=== PATIENT | female | born 1960 | race Caucasian/White ===

== ENCOUNTER 2018-07-29 16:44 | Emergency (ER) | payer SELFPAY ==
[~2018-07-29] VITALS: Ht 157.5 cm; Wt 65.8 kg
[~2018-07-29 16:44] MED LIST: AMLO10TA8 PO; ASPI-630 PO; CLON0.2T PO; FOLI1TAB16 PO; LOSA-73 PO; METO50TA6 PO; THIA100T22 PO
[2018-07-29] MEDS ORDERED: LABETALOL 20 MG/4 ML DISP.SYRIN. IVP ONE (17:30)
[2018-07-29] MEDS ORDERED: MECLIZINE HCL 12.5 MG TABLET. PO ONE (17:30)
[2018-07-29] MEDS ORDERED: IV NORMAL SALINE 1000ML BAG 1,000 ML IV ONE (17:30)
--- NOTE | 2018-07-29 17:33 | PHYS DOC ---
Past Medical History Past Medical History: Diabetes-Type II, Hypertension Additional Past Medical Histor: Hyponatremia, hypoglycemia Past Surgical History: Tonsillectomy Alcohol Use: None Drug Use: None Adult General Chief Complaint Chief Complaint: DIZZY/LIGHT HEADED HPI HPI Patient is a 58 year old female with history of diabetes type 2, hypertension, who presents to the ED today complaining of dizziness for "months". Patient states the dizziness is worse when she gets up from sitting position very quickly. Patient denies any nausea or vomiting. Denies a sensation of the room spinning or herself spinning. Denies any chest pain or shortness of breath. She states she is a smoker and is not willing to quit smoking because she does not like how this smoking cessation medications make her feel. She states she ran out of her blood pressure medications 3 days ago unfortunately she states she does not remember the names of the medications neither does she remember the names of her doctors but believes it could be Dr. Castillo. Review of Systems Review of Systems Constitutional: Denies fever or chills [] Eyes: Denies change in visual acuity, redness, or eye pain [] HENT: Denies nasal congestion or sore throat [] Respiratory: Denies cough or shortness of breath [] Cardiovascular: No additional information not addressed in HPI [] GI: Denies abdominal pain, nausea, vomiting, bloody stools or diarrhea [] : Denies dysuria or hematuria [] Musculoskeletal: Denies back pain or joint pain [] Integument: Denies rash or skin lesions [] Neurologic: Reports dizziness. Denies headache, focal weakness or sensory changes [] All other systems were reviewed and found to be within normal limits, except as documented in this note. Current Medications Current Medications Current Medications Medications (Trade) Dose Ordered Sig/Jil Start Time Stop Time Status Last Admin Dose Admin Clonidine HCl (Catapres) 0.2 mg 1X ONCE 07/29/18 18:00 07/29/18 18:01 Labetalol HCl (Normodyne Iv Push) 10 mg 1X ONCE 07/29/18 17:30 07/29/18 17:31 DC Meclizine HCl (Antivert) 25 mg 1X ONCE 07/29/18 17:30 07/29/18 17:31 DC Sodium Chloride 1,000 ml @ 1,000 mls/hr 1X ONCE 07/29/18 17:30 07/29/18 18:29 Allergies Allergies Allergies Coded Allergies Type Severity Reaction Last Updated Verified No Known Drug Allergies 08/15/13 No Physical Exam Physical Exam Constitutional: Well developed, well nourished, no acute distress, non-toxic appearance. [] HENT: Normocephalic, atraumatic, bilateral external ears normal, oropharynx moist, no oral exudates, nose normal. [] Eyes: PERRLA, EOMI, conjunctiva normal, no discharge. [] Neck: Normal range of motion, no tenderness, supple, no stridor. [] Cardiovascular:Heart rate regular rhythm, no murmur [] Lungs & Thorax: Bilateral breath sounds clear to auscultation [] Abdomen: Bowel sounds normal, soft, no tenderness, no masses, no pulsatile masses. [] Skin: Warm, dry, no erythema, no rash. [] Back: No tenderness, no CVA tenderness. [] Extremities: No tenderness, no cyanosis, no clubbing, ROM intact, no edema. [] Neurologic: Alert and oriented X 3, normal motor function, normal sensory function, no focal deficits noted. Psychologic: Affect normal, judgement normal, mood normal. Cranial nerves II through XII intact Current Patient Data Vital Signs Vital Signs Date Time Temp Pulse Resp B/P (MAP) Pulse Ox O2 Delivery O2 Flow Rate FiO2 07/29/18 17:00 98.3 108 18 192/120 (144) 100 Room Air 98.3 EKG EKG 17:[address] Johnson sinus rhythm HR 79 no STEMI[] Radiology/Procedures Radiology/Procedures [] Course & Med Decision Making Course & Med Decision Making Pertinent Labs and Imaging studies reviewed. (See chart for details) This is a 58-year-old female patient with history of diabetes, hypertension, smoking presenting today with dizziness for months. Blood pressure on arrival to the ED 192/120, she states she has been out of her medications 3 days. Patient declined smoking cessation. 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 She is requesting blood pressure medications. Previous documentation shows patient was on metoprolol clonidine losartan and amlodipine. She confirmed she is on the mentioned medications RX given and she left the Ed. A is alert and oriented 4, able to make her own decisions. She'll sign out AMA for refusal of care. I did give him RX for 14 day supply of BP medicines and f/ u with PCP as soon as possible Shahram Disclaimer Shahram Disclaimer This electronic medical record was generated, in whole or in part, using a voice recognition dictation system. Departure Departure Impression: Primary Impression: Dizziness Additional Impression: HTN (hypertension) Disposition: 07 AGAINST MEDICAL ADVICE Condition: STABLE Referrals: NO PCP (PCP) Patient Instructions: Dizziness, [id number], Hypertension Additional Instructions: You were evaluated in the medicine for chronic dizziness, your blood pressure was high, ensure you taking her medications and follow up with her own doctor as soon as possible. Please consider smoking cessation. Scripts Amlodipine Besylate (AMLODIPINE BESYLATE) 10 Mg Tablet 10 MG PO DAILY, #14 TAB Prov: STEPHEN SANCHES APRN 07/29/18 Losartan Potassium (LOSARTAN POTASSIUM) 50 Mg Tablet 50 MG PO DAILY, #14 TAB Prov: STEPHEN SANCHES APRN 07/29/18 Clonidine Hcl (CLONIDINE HCL) 0.2 Mg Tablet 1 TAB PO BID, #28 TAB 0 Refills Prov: STEPHEN SANCHES APRN 07/29/18 Metoprolol Tartrate (METOPROLOL TARTRATE) 50 Mg Tablet 1 TAB PO BID, #28 TAB 0 Refills Prov: STEPHEN SANCHES APRN 07/29/18 Problem Qualifiers Additional Impression: HTN (hypertension) Hypertension type: unspecified Qualified Codes: I10 - Essential (primary) hypertension STEPHEN SANCHES APRN Jul 29, 2018 17:33
[2018-07-29 17:45] VITALS: BP 187/124
[2018-07-29] MEDS ORDERED: CLON0.2T PO (17:53)
[2018-07-29] MEDS ORDERED: METO50TA6 PO (17:53)
[2018-07-29] MEDS ORDERED: LOSA-73 PO (17:53)
[2018-07-29] MEDS ORDERED: AMLO10TA8 PO (17:53)
[2018-07-29] MEDS ORDERED: cloNIDine HCL 0.1 MG TABLET PO ONE (18:00)
== END 2018-07-29 17:53 | disposition left against medical advice (07) ==
LOC: ER 16:44
DX: I10 Essential (primary) hypertension (principal); R42 Dizziness and giddiness; E11.649 Type 2 diabetes mellitus with hypoglycemia without coma; F17.200 Nicotine dependence, unspecified, uncomplicated
CPT/HCPCS: 96374; 99284; J3490; J8597

== ENCOUNTER 2018-07-30 09:28 | Inpatient (IN) | payer SELFPAY ==
[~2018-07-30] VITALS: Ht 157.5 cm; Wt 65.8 kg
[2018-07-30] MEDS ORDERED: MECLIZINE HCL 12.5 MG TABLET. PO ONE (09:45)
[2018-07-30] MEDS ORDERED: IV NORMAL SALINE 1000ML BAG 1,000 ML IV ONE ×2 (09:45→12:00)
--- NOTE | 2018-07-30 09:50 | PHYS DOC ---
Past Medical History Past Medical History: Diabetes-Type II, Hypertension Additional Past Medical Histor: Hyponatremia, hypoglycemia Past Surgical History: Tonsillectomy Alcohol Use: None Drug Use: None Adult General Chief Complaint Chief Complaint: DIZZY/LIGHT HEADED HPI HPI Patient is a 58 year old female with history of diabetes type 2, hypertension, who presents to the ED today complaining of dizziness for "months". Patient states the dizziness is worse when she gets up from sitting position very quickly. Patient denies any nausea or vomiting. Denies a sensation of the room spinning or herself spinning. Denies any chest pain or shortness of breath. She states she is a smoker and is not willing to quit smoking because she does not like how the smoking cessation medications make her feel. Patient was in the ED yesterday and left AMA before we did any work up. She states her symptoms have continued and hence the reason she returns. She states she has been out of her BP medications for a while and did not fill her BP medicines yesterday. Review of Systems Review of Systems Constitutional: Denies fever or chills [] Eyes: Denies change in visual acuity, redness, or eye pain [] HENT: Denies nasal congestion or sore throat [] Respiratory: Denies cough or shortness of breath [] Cardiovascular: No additional information not addressed in HPI [] GI: Denies abdominal pain, nausea, vomiting, bloody stools or diarrhea [] : Denies dysuria or hematuria [] Musculoskeletal: Denies back pain or joint pain [] Integument: Denies rash or skin lesions [] Neurologic: Reports dizziness. Denies headache, focal weakness or sensory changes [] All other systems were reviewed and found to be within normal limits, except as documented in this note. Current Medications Current Medications Current Medications Medications (Trade) Dose Ordered Sig/Jil Start Time Stop Time Status Last Admin Dose Admin Clonidine HCl (Catapres) 0.1 mg 1X ONCE 07/30/18 10:00 07/30/18 10:01 DC 07/30/18 10:20 0.1 MG Labetalol HCl (Normodyne Iv Push) 10 mg 1X ONCE 07/30/18 10:00 07/30/18 10:01 DC Meclizine HCl (Antivert) 25 mg 1X ONCE 07/30/18 09:45 07/30/18 09:50 DC 07/30/18 10:21 25 MG Sodium Chloride 1,000 ml @ 1,000 mls/hr 1X ONCE 07/30/18 09:45 07/30/18 10:44 DC 07/30/18 10:19 1,000 MLS/HR Allergies Allergies Allergies Coded Allergies Type Severity Reaction Last Updated Verified No Known Drug Allergies 08/15/13 No Physical Exam Physical Exam Constitutional: Well developed, well nourished, no acute distress, non-toxic appearance. [] HENT: Normocephalic, atraumatic, bilateral external ears normal, oropharynx moist, no oral exudates, nose normal. [] Eyes: PERRLA, EOMI, conjunctiva normal, no discharge. [] Neck: Normal range of motion, no tenderness, supple, no stridor. [] Cardiovascular:Heart rate regular rhythm, no murmur [] Lungs & Thorax: Bilateral breath sounds clear to auscultation [] Abdomen: Bowel sounds normal, soft, no tenderness, no masses, no pulsatile masses. [] Skin: Warm, dry, no erythema, no rash. [] Back: No tenderness, no CVA tenderness. [] Extremities: No tenderness, no cyanosis, no clubbing, ROM intact, no edema. [] Neurologic: Alert and oriented X 3, normal motor function, normal sensory function, no focal deficits noted. Cranial nerves II-XII intact Psychologic: flat affect, shakiness Current Patient Data Vital Signs Vital Signs Date Time Temp Pulse Resp B/P (MAP) Pulse Ox O2 Delivery O2 Flow Rate FiO2 07/30/18 11:30 68 98 07/30/18 10:20 153/90 07/30/18 09:51 97.7 18 Room Air 97.7 Lab Values Laboratory Tests Test 07/30/18 09:41 07/30/18 10:00 07/30/18 10:10 Urine Collection Type Unknown Urine Color Yellow Urine Clarity Clear Urine pH 6.0 Urine Specific [place] 1.010 Urine Protein Negative mg/dL (NEG-TRACE) Urine Glucose (UA) Negative mg/dL (NEG) Urine Ketones (Stick) Negative mg/dL (NEG) Urine Blood Negative (NEG) Urine Nitrite Negative (NEG) Urine Bilirubin Negative (NEG) Urine Urobilinogen Dipstick 1.0 mg/dL (0.2 mg/dL) Urine Leukocyte Esterase Negative (NEG) Urine RBC 0 /HPF (0-2) Urine WBC 0 /HPF (0-4) Urine Squamous Epithelial Cells Many /LPF Urine Bacteria 0 /HPF (0-FEW) Urine Opiates Screen Neg (NEG) Urine Methadone Screen Neg (NEG) Urine Barbiturates Neg (NEG) Urine Phencyclidine Screen Neg (NEG) Urine Amphetamine/Methamphetamine Neg (NEG) Urine Benzodiazepines Screen Neg (NEG) Urine Cocaine Screen Neg (NEG) Urine Cannabinoids Screen Neg (NEG) Urine Ethyl Alcohol Neg (NEG) White Blood Count 10.0 x10^3/uL (4.0-11.0) Red Blood Count 5.62 x10^6/uL (3.50-5.40) H Hemoglobin 18.1 g/dL (12.0-15.5) H Hematocrit 53.2 % (36.0-47.0) H Mean Corpuscular Volume 95 fL (79-100) Mean Corpuscular Hemoglobin 32 pg (25-35) Mean Corpuscular Hemoglobin Concent 34 g/dL (31-37) Red Cell Distribution Width 14.3 % (11.5-14.5) Platelet Count 430 x10^3/uL (140-400) H Neutrophils (%) (Auto) 74 % (31-73) H Lymphocytes (%) (Auto) 18 % (24-48) L Monocytes (%) (Auto) 6 % (0-9) Eosinophils (%) (Auto) 1 % (0-3) Basophils (%) (Auto) 1 % (0-3) Neutrophils # (Auto) 7.4 x10^3uL (1.8-7.7) Lymphocytes # (Auto) 1.8 x10^3/uL (1.0-4.8) Monocytes # (Auto) 0.6 x10^3/uL (0.0-1.1) Eosinophils # (Auto) 0.1 x10^3/uL (0.0-0.7) Basophils # (Auto) 0.1 x10^3/uL (0.0-0.2) Prothrombin Time 12.7 SEC (11.7-14.0) Prothrombin Time INR 1.0 (0.8-1.1) Sodium Level 138 mmol/L (136-145) Potassium Level 3.8 mmol/L (3.5-5.1) Chloride Level 97 mmol/L (98-107) L Carbon Dioxide Level 28 mmol/L (21-32) Anion Gap 13 (6-14) Blood Urea Nitrogen 8 mg/dL (7-20) Creatinine 0.8 mg/dL (0.6-1.0) Estimated GFR (Cockcroft-Gault) 73.2 BUN/Creatinine Ratio 10 (6-20) Glucose Level 126 mg/dL (70-99) H Calcium Level 10.5 mg/dL (8.5-10.1) H Magnesium Level 1.7 mg/dL (1.8-2.4) L Total Bilirubin 0.6 mg/dL (0.2-1.0) Aspartate Amino Transferase (AST) 17 U/L (15-37) Alanine Aminotransferase (ALT) 17 U/L (14-59) Alkaline Phosphatase 101 U/L (46-116) Creatine Kinase 40 U/L (26-192) Creatine Kinase MB (Mass) 0.9 ng/mL (0.0-3.6) Creatine Kinase MB Relative Index % (0-4) SG-Dao-M-Type Natriuretic Peptide 78 pg/mL (0-124) Total Protein 7.9 g/dL (6.4-8.2) Albumin 4.0 g/dL (3.4-5.0) Albumin/Globulin Ratio 1.0 (1.0-1.7) Lipase 94 U/L (73-393) Thyroid Stimulating Hormone (TSH) 3.422 uIU/mL (0.358-3.74) Ethyl Alcohol Level < 10 mg/dL (0-10) Troponin I Quantitative < 0.017 ng/mL (0.000-0.055) Laboratory Tests 07/30/18 10:00 Laboratory Tests 07/30/18 10:00 EKG EKG 10:[address] Zamudio sinus rhythm HR 80 no STEMI[] Radiology/Procedures Radiology/Procedures []PROCEDURE: PORTABLE CHEST 1V Exam performed: One view chest. Indication: VERTIGO Date of Service: 07/30/2018 9:35 AM Comparison: One view chest from 10/10/2017. Single AP upright portable view chest findings: Cardiomediastinal silhouette is within limits of normal. No acute infiltrates, effusion or pneumothorax is detected. Calcified nodules in the right lung base, related to remote ligamentous infection. The bony structures are normal. Impression: No acute cardiopulmonary process is detected. Electronically signed by: Yaneth Willis MD (07/30/2018 10:04 AM) [id number] DICTATED and SIGNED BY: YANETH WILLIS MD DATE: 07/30/18 1004 PROCEDURE: CT HEAD WO CONTRAST CT HEAD WO CONTRAST History: Dizziness Comparison: October 10, 2017; August 07, 2013 Technique: Noncontrast CT imaging was performed of the head. Exposure: One or more of the following individualized dose reduction techniques were utilized for this examination: 1. Automated exposure control 2. Adjustment of the mA and/or kV according to patient size 3. Use of iterative reconstruction technique. Findings: No acute intracranial hemorrhage is identified. There is a similar degree of third and lateral ventriculomegaly compared with older 2014 exam, generalized supratentorial atrophy present. There is again multifocal moderate to severe ill-defined low-density of the supratentorial parenchyma bilaterally. There is no new intra-axial mass effect or midline shift. There is atherosclerotic calcification of the carotid siphons bilaterally. Visualized paranasal sinuses and the mastoid air cells are aerated. Impression: 1. There is no evidence of acute intracranial hemorrhage. There is again ventriculomegaly probably related to atrophy, stable compared with 2014 exam. There is multifocal low-density of the supratentorial parenchyma bilaterally. Nonspecific findings may be due to chronic microvascular ischemic disease unless there is a known history of or clinical suspicion for inflammatory demyelinating disease. Electronically signed by: Agata Mixon MD (07/30/2018 10:24 AM) [id number] DICTATED and SIGNED BY: AGATA MIXON MD DATE: 07/30/18 1024 Course & Med Decision Making Course & Med Decision Making Pertinent Labs and Imaging studies reviewed. (See chart for details) Patient is a 58 year old female who presents to the ED today complaining of dizziness for "months". Patient also has history of hypertension. Does not take her medications. She was in the ED yesterday, we tried to work her up and she decided to sign out AMA. Orthostatics supine blood pressure 175/96 with a heart rate of 76, sitting blood pressure 153/90 with a heart rate of 84, standing blood pressure 123/80 with a heart rate of [address] of the head is negative for intracranial bleeding. Noted for non specific multifocal low-density of the supratentorial parenchyma bilaterally, may be due to chronic microvascular ischemic disease unless there is a known history of or clinical suspicion for inflammatory demyelinating disease Routine consult placed for neurology. Blood pressures were high on arrival to the ED 197/110 with heart rates in the 80s. Clonidine was ordered. Patient was given IV fluids, meclizine. She is up and ambulating with no difficulties. Labs are negative, EKG was negative. Urine analysis is negative. Consulted with Dr. Fleming who accepted patient for admission. Dragon Disclaimer Dragon Disclaimer This electronic medical record was generated, in whole or in part, using a voice recognition dictation system. Departure Departure Impression: Primary Impression: Dizziness Additional Impressions: HTN (hypertension) Smoking addiction Disposition: ADMITTED INPATIENT Condition: STABLE Referrals: NO PCP (PCP) NIHSS Stroke Scale NIH Stroke Scale: NIH Stroke Scale Response (Comments) Value Level of Consciousness: 0 Alert/Responsive 0 LOC Questions: 0 Answers both correctly 0 LOC Commands: 0 Performs both tasks 0 Best Gaze: 0 Normal 0 Visual: 0 No visual loss 0 Facial Palsy: 0 Normal, symmetrical 0 Motor - Left Arm 0 No drift 0 Motor - Right Arm 0 No drift 0 Motor - Left Leg 0 No drift 0 Motor: Right Leg 0 No drift 0 Limb Ataxia: 0 Absent 0 Sensory: 0 No loss 0 Best Language: 0 Normal 0 Dysathria: 0 Normal 0 Extinction and Inattention: 0 Normal 0 Total 0 Problem Qualifiers Additional Impressions: HTN (hypertension) Hypertension type: unspecified Qualified Codes: I10 - Essential (primary) hypertension STEPHEN SANCHES APRN Jul 30, 2018 09:50
[2018-07-30] MEDS ORDERED: LABETALOL 20 MG/4 ML DISP.SYRIN. IVP ONE (10:00)
[2018-07-30] MEDS ORDERED: cloNIDine HCL 0.1 MG TABLET PO ONE (10:00)
--- NOTE | 2018-07-30 10:07 | RAD ---
Exam performed: One view chest. Indication: VERTIGO Date of Service: 07/30/2018 9:35 AM Comparison: One view chest from 10/10/2017. Single AP upright portable view chest findings: Cardiomediastinal silhouette is within limits of normal. No acute infiltrates, effusion or pneumothorax is detected. Calcified nodules in the right lung base, related to remote ligamentous infection. The bony structures are normal. Impression: No acute cardiopulmonary process is detected. Electronically signed by: Yaneth Willis MD (07/30/2018 10:04 AM) [place] [id number]
[2018-07-30 10:15] LABS: BASO # 0.1 x10^3/uL (0.0-0.2); BASO % 1 % (0-3); EOS # 0.1 x10^3/uL (0.0-0.7); EOS % 1 % (0-3); HEMATOCRIT 53.2 % (36.0-47.0); HEMOGLOBIN 18.1 g/dL (12.0-15.5); LYMPH # 1.8 x10^3/uL (1.0-4.8); LYMPH % 18 % (24-48); MEAN CORPUSCULAR HEMOGLOBIN 32 pg (25-35); MEAN CORPUSCULAR HGB CONC 34 g/dL (31-37); MEAN CORPUSCULAR VOLUME 95 fL (79-100); MONO # 0.6 x10^3/uL (0.0-1.1); MONO % 6 % (0-9); NEUT # 7.4 x10^3uL (1.8-7.7); NEUT % 74 % (31-73); PLATELET COUNT 430 x10^3/uL (140-400); RED BLOOD COUNT 5.62 x10^6/uL (3.50-5.40); RED CELL DISTRIBUTION WIDTH 14.3 % (11.5-14.5)
[2018-07-30 10:19] LABS: AMPHETAMINE/METHAMPHETAMINE NEG (NEG); BARBITURATES NEG (NEG); BENZODIAZEPINES NEG (NEG); CANNABINOIDS NEG (NEG); COCAINE NEG (NEG); METHADONE NEG (NEG); OPIATES NEG (NEG); PHENCYCLIDINE NEG (NEG)
[2018-07-30 10:26] LABS: BILIRUBIN,URINE NEGATIVE (NEG); CLARITY,URINE CLEAR; COLOR,URINE YELLOW; NITRITE,URINE NEGATIVE (NEG); PROTEIN,URINE NEGATIVE (NEG-TRACE)
--- NOTE | 2018-07-30 10:27 | RAD ---
CT HEAD WO CONTRAST History: Dizziness Comparison: October 10, 2017; August 07, 2013 Technique: Noncontrast CT imaging was performed of the head. Exposure: One or more of the following individualized dose reduction techniques were utilized for this examination: 1. Automated exposure control 2. Adjustment of the mA and/or kV according to patient size 3. Use of iterative reconstruction technique. Findings: No acute intracranial hemorrhage is identified. There is a similar degree of third and lateral ventriculomegaly compared with older 2014 exam, generalized supratentorial atrophy present. There is again multifocal moderate to severe ill-defined low-density of the supratentorial parenchyma bilaterally. There is no new intra-axial mass effect or midline shift. There is atherosclerotic calcification of the carotid siphons bilaterally. Visualized paranasal sinuses and the mastoid air cells are aerated. Impression: 1. There is no evidence of acute intracranial hemorrhage. There is again ventriculomegaly probably related to atrophy, stable compared with 2014 exam. There is multifocal low-density of the supratentorial parenchyma bilaterally. Nonspecific findings may be due to chronic microvascular ischemic disease unless there is a known history of or clinical suspicion for inflammatory demyelinating disease. Electronically signed by: Kwame Dominguez MD (07/30/2018 10:24 AM) [id number]
[2018-07-30 10:29] LABS: CALCIUM 10.5 mg/dL (8.5-10.1); CREATININE 0.8 mg/dL (0.6-1.0); GFR 73.2; POTASSIUM 3.8 mmol/L (3.5-5.1)
[2018-07-30 10:34] LABS: BACTERIA,URINE 0 /HPF (0-FEW); RBC,URINE 0 /HPF (0-2); SQUAMOUS EPITHELIAL CELL,UR MANY /LPF; WBC,URINE 0 /HPF (0-4)
[2018-07-30 10:35] LABS: MAGNESIUM 1.7 mg/dL (1.8-2.4); TOTAL BILIRUBIN 0.6 mg/dL (0.2-1.0); TOTAL PROTEIN 7.9 g/dL (6.4-8.2)
[2018-07-30 10:37] LABS: PROTHROMBIN TIME PATIENT 12.7 SEC (11.7-14.0)
[2018-07-30 10:39] LABS: CREATINE KINASE 40 U/L (26-192)
--- NOTE | 2018-07-30 10:58 | EKG ---
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
[2018-07-30] MEDS ORDERED: ONDANSETRON PF 4 MG/2 ML VIAL. IV PRN (12:00)
[2018-07-30] MEDS ORDERED: ACETAMINOPHEN 325 MG TABLET. PO PRN (12:00)
[2018-07-30] MEDS ORDERED: MECLIZINE HCL 12.5 MG TABLET. PO PRN (12:00)
[2018-07-30 13:15] VITALS: BP 188/107
--- NOTE | 2018-07-30 13:51 | HP ---
ADMIT DATE: 07/30/2018 CHIEF COMPLAINT: Vertigo. HISTORY OF PRESENT ILLNESS: The patient is a pleasant 58-year-old female who presented with vertigo. She actually was seen in the ER yesterday and had left against medical advice. Today, she is dizzy again. She rates it at 9/10. She has associated nausea. It has been occurring off and on for a couple of weeks, worse with moving, better with sitting still. She does smoke heavily. I discussed the case with ER physician. We are going to admit the patient and consult Neurology. PAST MEDICAL HISTORY: Diabetes, hypertension, hyperlipidemia, hyponatremia, hypoglycemia, tonsillectomy. ALLERGIES: None. FAMILY HISTORY: Coronary artery disease. SOCIAL HISTORY: She smokes heavily. She drinks socially. No drugs. MEDICATIONS: Reviewed. She is on clonidine, metoprolol, amlodipine, losartan, aspirin. REVIEW OF SYSTEMS: GENERAL: No history of weight change, weakness or fevers. SKIN: No bruising, hair changes or rashes. EYES: No blurred, double or loss of vision. NOSE AND THROAT: No history of nosebleeds, hoarseness or sore throat. HEART: No history of palpitations, chest pain or shortness of breath on exertion. LUNGS: Denies cough, hemoptysis, wheezing or shortness of breath. GASTROINTESTINAL: Denies changes in appetite, nausea, vomiting, diarrhea or constipation. GENITOURINARY: No history of frequency, urgency, hesitancy or nocturia. NEUROLOGIC: She complains of dizziness. PSYCHIATRIC: No history of panic, anxiety or depression. ENDOCRINE: No history of heat or cold intolerance, polyuria or polydipsia. EXTREMITIES: Denies muscle weakness, joint pain, pain on walking or stiffness. PHYSICAL EXAMINATION: VITAL SIGNS: Temperature 97, pulse 70, respirations 18, blood pressure 197/110, it went down to 153/90. GENERAL: She is alert, cooperative. HEART: Normal S1, S2. LUNGS: Clear. ABDOMEN: Soft. EXTREMITIES: No edema. SKIN: No rashes. PSYCHIATRIC: She is a little anxious. VASCULAR: Good capillary refill. ENDOCRINE: No thyromegaly. LYMPHATICS: No cervical nodes. HEMATOPOIETIC: No bruising. NEUROLOGICAL: She is a little unsteady on her feet, does not have any nystagmus. LABORATORY DATA: Hemoglobin 18, platelets 430. Electrolytes are normal other than a calcium of 10.5 and a magnesium of 1.7. Drug screen is negative. Urinalysis negative. INR is 1. CT of the head shows atrophy with chronic microvascular disease. ASSESSMENT AND PLAN: Vertigo, erythrocytosis, thrombocytosis, hypercalcemia and hypermagnesemia of 1.7. The patient has been admitted. We will consult Neurology, IV fluids. I told her to quit smoking. Home meds. Deep venous thrombosis prophylaxis, physical therapy and occupational therapy. Full code and p.r.n Antivert. JEAN-LCAUDE NOBLES DO DR: JONATHAN/charlie JOB#: [id number] / [id number]
[2018-07-30 15:00] VITALS: BP 172/94
--- NOTE | 2018-07-30 17:01 | RAD ---
MRI Brain without contrast History: Unsteady gait, dizziness Technique: Multiplanar, multisequential noncontrast MR imaging was performed of the brain. Comparison: None Findings: There is no evidence of recent infarct or cytotoxic edema. Ventricular size is proportionate to the sulcal spaces, moderate supratentorial atrophy greater than expected for the patient's age. There is multifocal moderate to severe T2 and FLAIR hyperintense signal abnormality of the supratentorial parenchyma bilaterally. There is small old lacunar infarct left basal ganglia. There is no significant midline shift, intraaxial mass effect, or focal abnormal extra-axial fluid collection. There is no significant hemosiderin deposition of the brain parenchyma. There is preservation of the major intracranial flow-voids at the skull base. The mastoid air cells are aerated. The cerebellar tonsils are normal in location. There is no significant abnormality of the pineal gland or pituitary gland. Paranasal sinuses are overall aerated. There is preserved marrow signal of the clivus. Impression: 1. There is no evidence of recent infarct or intracranial mass effect. There is generalized supratentorial atrophy greater than expected for the patient's age. There is multifocal moderate to severe T2 and FLAIR hyperintense abnormality of the supratentorial parenchyma bilaterally. Findings could be due to chronic microvascular ischemic disease if risk factors such as hypertension or diabetes. Sequela of an inflammatory demyelinating disease is not excluded given degree of changes in a patient this age and given atrophy. Electronically signed by: Kwame Dominguez MD (07/30/2018 4:58 PM) [id number]
[2018-07-30] MEDS: NICOTINE POLACRILEX 2MG GUM PACKAGE of 12. BC PRN ×2 (17:48→19:59)
[2018-07-30 19:00] VITALS: BP 141/97
[2018-07-30] MEDS: METOPROLOL TART IMMED RELEASE 50 MG TABLET. PO SCH (21:20)
[2018-07-30] MEDS: cloNIDine HCL 0.2 MG TABLET PO SCH (21:21)
[2018-07-30 23:00] VITALS: BP_SYST 108; BP_SYST 86; BP_SYST 90; BP_DIAS 56; BP_DIAS 61; BP_DIAS 65
[2018-07-31] MEDS: NICOTINE POLACRILEX 2MG GUM PACKAGE of 12. BC PRN ×2 (02:52→08:22)
[2018-07-31 03:00] VITALS: BP 155/72
[2018-07-31 04:33] LABS: BASO # 0.1 x10^3/uL (0.0-0.2); BASO % 1 % (0-3); EOS # 0.2 x10^3/uL (0.0-0.7); EOS % 2 % (0-3); HEMATOCRIT 40.1 % (36.0-47.0); HEMOGLOBIN 13.3 g/dL (12.0-15.5); LYMPH # 2.2 x10^3/uL (1.0-4.8); LYMPH % 32 % (24-48); MEAN CORPUSCULAR HEMOGLOBIN 32 pg (25-35); MEAN CORPUSCULAR HGB CONC 33 g/dL (31-37); MEAN CORPUSCULAR VOLUME 96 fL (79-100); MONO # 0.6 x10^3/uL (0.0-1.1); MONO % 9 % (0-9); NEUT # 3.9 x10^3uL (1.8-7.7); NEUT % 56 % (31-73); PLATELET COUNT 308 x10^3/uL (140-400); RED BLOOD COUNT 4.19 x10^6/uL (3.50-5.40); RED CELL DISTRIBUTION WIDTH 13.9 % (11.5-14.5)
[2018-07-31 04:36] LABS: CALCIUM 9.4 mg/dL (8.5-10.1); CREATININE 0.6 mg/dL (0.6-1.0); POTASSIUM 3.6 mmol/L (3.5-5.1)
[2018-07-31 07:00] VITALS: BP_SYST 152; BP_SYST 159; BP_SYST 98; BP_DIAS 83; BP_DIAS 84; BP_DIAS 85
--- NOTE | 2018-07-31 07:33 | PDOC2 ---
CONSULT Date of Consult Date of Consult DATE: 07/31/18 TIME: 07:27 Reason for Consult Reason for Consult: polycythemia Referring Physician Referring Physician: Bernadette Identification/Chief Complaint Chief Complaint dizziness Source Source: Chart review, Patient History of Present Illness Reason for Visit: Asked to see for polycythemia. Presented to ED on 07/30 with c/o dizziness and hemoglobin noted to be 18.3. She left AMA, but returned later with same c/o and admitted. MRI brain showed atrophy and microvascular change, but nothing acute, CXR not acute. Does have heavy tob use. Had IVF and hemoglobin and remainder of CBC normal today. She says her dizziness is better. Reports she has not been sleeping well for 9 weeks. Not aware of any prior heme issues. Reviewed old labs and no prior polycythemia. Has been anemic at time in past. Past Medical History Cardiovascular: HTN Pulmonary: COPD CENTRAL NERVOUS SYSTEM: CVA GI: No pertinent hx Heme/Onc: No pertinent hx Hepatobiliary: No pertinent hx Psych: Anxiety Musculoskeletal: Other Rheumatologic: No pertinent hx Infectious disease: No pertinent hx Renal/: No pertinent hx Endocrine: No pertinent hx Past Surgical History Past Surgical History: Tonsillectomy Family History Family History She tells me she is adopted and not sure of FH Family History: Adopted Social History 1 pack per day ALCOHOL: other Drugs: None Lives: with Family Domestic Violence: Neg Current Problem List Problem List Problems Medical Problems: (1) Dizziness Status: Acute (2) HTN (hypertension) Status: Acute (3) Smoking addiction Status: Acute Current Medications Current Medications Current Medications Sodium Chloride 1,000 ml @ 1,000 mls/hr 1X ONCE IV Last administered on at 10:19; Start 07/30/18 at 09:45; Stop 07/30/18 at 10:44; Status DC Meclizine HCl (Antivert) 25 mg 1X ONCE PO Last administered on 07/30/18at 10:21 ; Start 07/30/18 at 09:45; Stop 07/30/18 at 09:50; Status DC Labetalol HCl (Normodyne Iv Push) 10 mg 1X ONCE IVP ; Start 07/30/18 at 10:00; Stop 07/30/18 at 10:01; Status DC Clonidine HCl (Catapres) 0.1 mg 1X ONCE PO Last administered on 07/30/18at 10: 20; Start 07/30/18 at 10:00; Stop 07/30/18 at 10:01; Status DC Ondansetron HCl (Zofran) 4 mg PRN Q8HRS PRN IV NAUSEA/VOMITING; Start 07/30/18 at 12:00; Stop 07/31/18 at 11:59 Acetaminophen (Tylenol) 650 mg PRN Q4HRS PRN PO FEVER; Start 07/30/18 at 12:00 ; Stop 07/31/18 at 11:59 Sodium Chloride 1,000 ml @ 75 mls/hr 1X ONCE IV Last administered on at 15:46; Start 07/30/18 at 12:00; Stop 07/31/18 at 01:19; Status DC Meclizine HCl (Antivert) 25 mg TID PRN PRN PO DIZZINESS; Start 07/30/18 at 12: 00 Nicotine Polacrilex (Nicorette Gum) 1 each PRN Q1HR PRN BC SMOKING CESSATION Last administered on 07/31/18at 02:52; Start 07/30/18 at 15:45 Amlodipine Besylate (Norvasc) 10 mg DAILY PO ; Start 07/31/18 at 09:00 Aspirin (Children'S Aspirin) 81 mg DAILY PO ; Start 07/31/18 at 09:00 Clonidine HCl (Catapres) 0.2 mg BID PO Last administered on 07/30/18at 21:21; Start 07/30/18 at 21:00 Losartan Potassium (Cozaar) 50 mg DAILY PO ; Start 07/31/18 at 09:00 Metoprolol Tartrate (Lopressor) 50 mg BID PO Last administered on 07/30/18at 21: 20; Start 07/30/18 at 21:00 Active Scripts Active Amlodipine Besylate 10 Mg Tablet 10 Mg PO DAILY Losartan Potassium 50 Mg Tablet 50 Mg PO DAILY Clonidine Hcl 0.2 Mg Tablet 1 Tab PO BID Metoprolol Tartrate 50 Mg Tablet 1 Tab PO BID Reported Amlodipine Besylate 10 Mg Tablet 10 Mg PO DAILY Aspirin 81 Mg Tab.chew 81 Mg PO DAILY Losartan Potassium 50 Mg Tablet 50 Mg PO DAILY Clonidine Hcl 0.2 Mg Tablet 0.2 Mg PO BID Metoprolol Tartrate 50 Mg Tablet 50 Mg PO BID Allergies Allergies: Coded Allergies: No Known Drug Allergies (Unverified , 08/15/13) ROS General: YES: Other (sleep difficulty) Physical Exam General: Alert, Cooperative, No acute distress HEENT: Atraumatic, PERRLA, Mucous membr. moist/pink Lungs: Clear to auscultation Heart: Regular rate, No murmurs Abdomen: Normal bowel sounds, Soft, No hepatosplenomegaly Extremities: No edema, No tenderness/swelling Neuro: Normal speech, Normal tone Psych/Mental Status: Mental status NL MUSCULOSKELETAL: No swelling Vitals VITALS Vital Signs Date Time Temp Pulse Resp B/P (MAP) Pulse Ox O2 Delivery O2 Flow Rate FiO2 07/31/18 03:00 97.9 57 18 155/72 (99) 95 97.9 07/30/18 15:00 Room Air Labs Labs Laboratory Tests Test 07/30/18 09:41 07/30/18 10:00 07/30/18 10:10 07/31/18 03:35 Urine Collection Type Unknown Urine Color Yellow Urine Clarity Clear Urine pH 6.0 Urine Specific [place] 1.010 Urine Protein Negative mg/dL (NEG-TRACE) Urine Glucose (UA) Negative mg/dL (NEG) Urine Ketones (Stick) Negative mg/dL (NEG) Urine Blood Negative (NEG) Urine Nitrite Negative (NEG) Urine Bilirubin Negative (NEG) Urine Urobilinogen Dipstick 1.0 mg/dL (0.2 mg/dL) Urine Leukocyte Esterase Negative (NEG) Urine RBC 0 /HPF (0-2) Urine WBC 0 /HPF (0-4) Urine Squamous Epithelial Cells Many /LPF Urine Bacteria 0 /HPF (0-FEW) Urine Opiates Screen Neg (NEG) Urine Methadone Screen Neg (NEG) Urine Barbiturates Neg (NEG) Urine Phencyclidine Screen Neg (NEG) Urine Amphetamine/Methamphetamine Neg (NEG) Urine Benzodiazepines Screen Neg (NEG) Urine Cocaine Screen Neg (NEG) Urine Cannabinoids Screen Neg (NEG) Urine Ethyl Alcohol Neg (NEG) White Blood Count 10.0 x10^3/uL (4.0-11.0) 7.0 x10^3/uL (4.0-11.0) Red Blood Count 5.62 x10^6/uL (3.50-5.40) 4.19 x10^6/uL (3.50-5.40) Hemoglobin 18.1 g/dL (12.0-15.5) 13.3 g/dL (12.0-15.5) Hematocrit 53.2 % (36.0-47.0) 40.1 % (36.0-47.0) Mean Corpuscular Volume 95 fL (79-100) 96 fL (79-100) Mean Corpuscular Hemoglobin 32 pg (25-35) 32 pg (25-35) Mean Corpuscular Hemoglobin Concent 34 g/dL (31-37) 33 g/dL (31-37) Red Cell Distribution Width 14.3 % (11.5-14.5) 13.9 % (11.5-14.5) Platelet Count 430 x10^3/uL (140-400) 308 x10^3/uL (140-400) Neutrophils (%) (Auto) 74 % (31-73) 56 % (31-73) Lymphocytes (%) (Auto) 18 % (24-48) 32 % (24-48) Monocytes (%) (Auto) 6 % (0-9) 9 % (0-9) Eosinophils (%) (Auto) 1 % (0-3) 2 % (0-3) Basophils (%) (Auto) 1 % (0-3) 1 % (0-3) Neutrophils # (Auto) 7.4 x10^3uL (1.8-7.7) 3.9 x10^3uL (1.8-7.7) Lymphocytes # (Auto) 1.8 x10^3/uL (1.0-4.8) 2.2 x10^3/uL (1.0-4.8) Monocytes # (Auto) 0.6 x10^3/uL (0.0-1.1) 0.6 x10^3/uL (0.0-1.1) Eosinophils # (Auto) 0.1 x10^3/uL (0.0-0.7) 0.2 x10^3/uL (0.0-0.7) Basophils # (Auto) 0.1 x10^3/uL (0.0-0.2) 0.1 x10^3/uL (0.0-0.2) Prothrombin Time 12.7 SEC (11.7-14.0) Prothromb Time International Ratio 1.0 (0.8-1.1) Sodium Level 138 mmol/L (136-145) 138 mmol/L (136-145) Potassium Level 3.8 mmol/L (3.5-5.1) 3.6 mmol/L (3.5-5.1) Chloride Level 97 mmol/L (98-107) 105 mmol/L (98-107) Carbon Dioxide Level 28 mmol/L (21-32) 26 mmol/L (21-32) Anion Gap 13 (6-14) 7 (6-14) Blood Urea Nitrogen 8 mg/dL (7-20) 9 mg/dL (7-20) Creatinine 0.8 mg/dL (0.6-1.0) 0.6 mg/dL (0.6-1.0) Estimated GFR (Cockcroft-Gault) 73.2 102.0 BUN/Creatinine Ratio 10 (6-20) Glucose Level 126 mg/dL (70-99) 90 mg/dL (70-99) Calcium Level 10.5 mg/dL (8.5-10.1) 9.4 mg/dL (8.5-10.1) Magnesium Level 1.7 mg/dL (1.8-2.4) Total Bilirubin 0.6 mg/dL (0.2-1.0) Aspartate Amino Transf (AST/SGOT) 17 U/L (15-37) Alanine Aminotransferase (ALT/SGPT) 17 U/L (14-59) Alkaline Phosphatase 101 U/L (46-116) Creatine Kinase 40 U/L (26-192) Creatine Kinase MB (Mass) 0.9 ng/mL (0.0-3.6) Creatine Kinase MB Relative Index % (0-4) VB-[id number]-[id number]-Type Natriuretic Peptide 78 pg/mL (0-124) Total Protein 7.9 g/dL (6.4-8.2) Albumin 4.0 g/dL (3.4-5.0) Albumin/Globulin Ratio 1.0 (1.0-1.7) Lipase 94 U/L (73-393) Thyroid Stimulating Hormone (TSH) 3.422 uIU/mL (0.358-3.74) Ethyl Alcohol Level < 10 mg/dL (0-10) Troponin I Quantitative < 0.017 ng/mL (0.000-0.055) Laboratory Tests Test 4/19/19 09:41 07/30/18 10:00 07/30/18 10:10 07/31/18 03:35 Urine Collection Type Unknown Urine Color Yellow Urine Clarity Clear Urine pH 6.0 Urine Specific [place] 1.010 Urine Protein Negative mg/dL (NEG-TRACE) Urine Glucose (UA) Negative mg/dL (NEG) Urine Ketones (Stick) Negative mg/dL (NEG) Urine Blood Negative (NEG) Urine Nitrite Negative (NEG) Urine Bilirubin Negative (NEG) Urine Urobilinogen Dipstick 1.0 mg/dL (0.2 mg/dL) Urine Leukocyte Esterase Negative (NEG) Urine RBC 0 /HPF (0-2) Urine WBC 0 /HPF (0-4) Urine Squamous Epithelial Cells Many /LPF Urine Bacteria 0 /HPF (0-FEW) Urine Opiates Screen Neg (NEG) Urine Methadone Screen Neg (NEG) Urine Barbiturates Neg (NEG) Urine Phencyclidine Screen Neg (NEG) Urine Amphetamine/Methamphetamine Neg (NEG) Urine Benzodiazepines Screen Neg (NEG) Urine Cocaine Screen Neg (NEG) Urine Cannabinoids Screen Neg (NEG) Urine Ethyl Alcohol Neg (NEG) White Blood Count 10.0 x10^3/uL (4.0-11.0) 7.0 x10^3/uL (4.0-11.0) Red Blood Count 5.62 x10^6/uL (3.50-5.40) 4.19 x10^6/uL (3.50-5.40) Hemoglobin 18.1 g/dL (12.0-15.5) 13.3 g/dL (12.0-15.5) Hematocrit 53.2 % (36.0-47.0) 40.1 % (36.0-47.0) Mean Corpuscular Volume 95 fL (79-100) 96 fL (79-100) Mean Corpuscular Hemoglobin 32 pg (25-35) 32 pg (25-35) Mean Corpuscular Hemoglobin Concent 34 g/dL (31-37) 33 g/dL (31-37) Red Cell Distribution Width 14.3 % (11.5-14.5) 13.9 % (11.5-14.5) Platelet Count 430 x10^3/uL (140-400) 308 x10^3/uL (140-400) Neutrophils (%) (Auto) 74 % (31-73) 56 % (31-73) Lymphocytes (%) (Auto) 18 % (24-48) 32 % (24-48) Monocytes (%) (Auto) 6 % (0-9) 9 % (0-9) Eosinophils (%) (Auto) 1 % (0-3) 2 % (0-3) Basophils (%) (Auto) 1 % (0-3) 1 % (0-3) Neutrophils # (Auto) 7.4 x10^3uL (1.8-7.7) 3.9 x10^3uL (1.8-7.7) Lymphocytes # (Auto) 1.8 x10^3/uL (1.0-4.8) 2.2 x10^3/uL (1.0-4.8) Monocytes # (Auto) 0.6 x10^3/uL (0.0-1.1) 0.6 x10^3/uL (0.0-1.1) Eosinophils # (Auto) 0.1 x10^3/uL (0.0-0.7) 0.2 x10^3/uL (0.0-0.7) Basophils # (Auto) 0.1 x10^3/uL (0.0-0.2) 0.1 x10^3/uL (0.0-0.2) Prothrombin Time 12.7 SEC (11.7-14.0) Prothromb Time International Ratio 1.0 (0.8-1.1) Sodium Level 138 mmol/L (136-145) 138 mmol/L (136-145) Potassium Level 3.8 mmol/L (3.5-5.1) 3.6 mmol/L (3.5-5.1) Chloride Level 97 mmol/L (98-107) 105 mmol/L (98-107) Carbon Dioxide Level 28 mmol/L (21-32) 26 mmol/L (21-32) Anion Gap 13 (6-14) 7 (6-14) Blood Urea Nitrogen 8 mg/dL (7-20) 9 mg/dL (7-20) Creatinine 0.8 mg/dL (0.6-1.0) 0.6 mg/dL (0.6-1.0) Estimated GFR (Cockcroft-Gault) 73.2 102.0 BUN/Creatinine Ratio 10 (6-20) Glucose Level 126 mg/dL (70-99) 90 mg/dL (70-99) Calcium Level 10.5 mg/dL (8.5-10.1) 9.4 mg/dL (8.5-10.1) Magnesium Level 1.7 mg/dL (1.8-2.4) Total Bilirubin 0.6 mg/dL (0.2-1.0) Aspartate Amino Transf (AST/SGOT) 17 U/L (15-37) Alanine Aminotransferase (ALT/SGPT) 17 U/L (14-59) Alkaline Phosphatase 101 U/L (46-116) Creatine Kinase 40 U/L (26-192) Creatine Kinase MB (Mass) 0.9 ng/mL (0.0-3.6) Creatine Kinase MB Relative Index % (0-4) ZO-[id number]-Type Natriuretic Peptide 78 pg/mL (0-124) Total Protein 7.9 g/dL (6.4-8.2) Albumin 4.0 g/dL (3.4-5.0) Albumin/Globulin Ratio 1.0 (1.0-1.7) Lipase 94 U/L (73-393) Thyroid Stimulating Hormone (TSH) 3.422 uIU/mL (0.358-3.74) Ethyl Alcohol Level < 10 mg/dL (0-10) Troponin I Quantitative < 0.017 ng/mL (0.000-0.055) Assessment/Plan Assessment/Plan I suspect her polycythemia was due to volume contraction. Likely explained some of the other electrolyte abnormalities. No other sign of heme d/o such as splenomegaly and do not recommend any further evaluation. I did advise tobacco cessation as others have. defer dizziness and sleep issues to primary service. Will sign off DEBBIE MARIE MD Jul 31, 2018 07:33
[2018-07-31] MEDS: METOPROLOL TART IMMED RELEASE 50 MG TABLET. PO SCH (08:13)
[2018-07-31] MEDS: cloNIDine HCL 0.2 MG TABLET PO SCH (09:00)
[2018-07-31] MEDS ORDERED: amLODIPine BESYLATE 10 MG TABLET PO SCH (09:00)
[2018-07-31] MEDS ORDERED: ASPIRIN CHEWABLE 81 MG TABLET. PO SCH (09:00)
[2018-07-31] MEDS ORDERED: LOSARTAN POTASSIUM 50 MG TABLET. PO SCH (09:00)
[2018-07-31 11:00] VITALS: BP 135/78
[2018-07-31 11:21] VITALS: BP 135/78
--- NOTE | 2018-07-31 11:52 | PDOC ---
PROGRESS NOTES Chief Complaint Chief Complaint Vertigo, nausea, confusion History of Present Illness History of Present Illness The patient was seen resting in bed today. She has no complaints. She is feeling much better today. She complains of lack of sleep. We discussed melatonin use and smoking cessation. Vitals Vitals Vital Signs Date Time Temp Pulse Resp B/P (MAP) Pulse Ox O2 Delivery O2 Flow Rate FiO2 07/31/18 11:21 56 135/78 07/31/18 11:00 98.3 12 99 Room Air 98.3 Physical Exam General: Alert, Oriented X3, Cooperative, No acute distress Heart: Regular rate, Normal S1, Normal S2, No murmurs Lungs: Clear (No wheezes, rales, or rhonci) Abdomen: Soft, No tenderness, No masses Extremities: No edema, Normal pulses, No tenderness/swelling Skin: No rashes, No breakdown, No significant lesion Labs LABS Laboratory Tests Test 07/31/18 03:35 White Blood Count 7.0 x10^3/uL (4.0-11.0) Red Blood Count 4.19 x10^6/uL (3.50-5.40) Hemoglobin 13.3 g/dL (12.0-15.5) Hematocrit 40.1 % (36.0-47.0) Mean Corpuscular Volume 96 fL (79-100) Mean Corpuscular Hemoglobin 32 pg (25-35) Mean Corpuscular Hemoglobin Concent 33 g/dL (31-37) Red Cell Distribution Width 13.9 % (11.5-14.5) Platelet Count 308 x10^3/uL (140-400) Neutrophils (%) (Auto) 56 % (31-73) Lymphocytes (%) (Auto) 32 % (24-48) Monocytes (%) (Auto) 9 % (0-9) Eosinophils (%) (Auto) 2 % (0-3) Basophils (%) (Auto) 1 % (0-3) Neutrophils # (Auto) 3.9 x10^3uL (1.8-7.7) Lymphocytes # (Auto) 2.2 x10^3/uL (1.0-4.8) Monocytes # (Auto) 0.6 x10^3/uL (0.0-1.1) Eosinophils # (Auto) 0.2 x10^3/uL (0.0-0.7) Basophils # (Auto) 0.1 x10^3/uL (0.0-0.2) Sodium Level 138 mmol/L (136-145) Potassium Level 3.6 mmol/L (3.5-5.1) Chloride Level 105 mmol/L (98-107) Carbon Dioxide Level 26 mmol/L (21-32) Anion Gap 7 (6-14) Blood Urea Nitrogen 9 mg/dL (7-20) Creatinine 0.6 mg/dL (0.6-1.0) Estimated GFR (Cockcroft-Gault) 102.0 Glucose Level 90 mg/dL (70-99) Calcium Level 9.4 mg/dL (8.5-10.1) Review of Systems Review of Systems Patient denies fevers, chills, N/V, CP, SOB, and diarrhea. She complains of lack of sleep. Assessment and Plan Assessmemt and Plan Problems Medical Problems: (1) Dizziness Status: Acute (2) HTN (hypertension) Status: Acute (3) Smoking addiction Status: Acute Assessment: Vertigo Erythrocytosis Thrombocytosis Hypercalcemia Hypermagnesemia of 1.7 T2DM HTN HLD Plan: Erythrocytosis and thrombocytosis resolved Discussed use of melatonin to help her sleep Discussed smoking cessation Heme onc consult Neurology consult Continue home meds F/u labs PT/OT DVT prophylaxis Discharge today Comment Review of Relevant I have reviewed the following items sierra (where applicable) has been applied. Labs Laboratory Tests Test 07/30/18 09:41 07/30/18 10:00 07/30/18 10:10 07/31/18 03:35 Urine Collection Type Unknown Urine Color Yellow Urine Clarity Clear Urine pH 6.0 Urine Specific [place] 1.010 Urine Protein Negative mg/dL (NEG-TRACE) Urine Glucose (UA) Negative mg/dL (NEG) Urine Ketones (Stick) Negative mg/dL (NEG) Urine Blood Negative (NEG) Urine Nitrite Negative (NEG) Urine Bilirubin Negative (NEG) Urine Urobilinogen Dipstick 1.0 mg/dL (0.2 mg/dL) Urine Leukocyte Esterase Negative (NEG) Urine RBC 0 /HPF (0-2) Urine WBC 0 /HPF (0-4) Urine Squamous Epithelial Cells Many /LPF Urine Bacteria 0 /HPF (0-FEW) Urine Opiates Screen Neg (NEG) Urine Methadone Screen Neg (NEG) Urine Barbiturates Neg (NEG) Urine Phencyclidine Screen Neg (NEG) Urine Amphetamine/Methamphetamine Neg (NEG) Urine Benzodiazepines Screen Neg (NEG) Urine Cocaine Screen Neg (NEG) Urine Cannabinoids Screen Neg (NEG) Urine Ethyl Alcohol Neg (NEG) White Blood Count 10.0 x10^3/uL (4.0-11.0) 7.0 x10^3/uL (4.0-11.0) Red Blood Count 5.62 x10^6/uL (3.50-5.40) 4.19 x10^6/uL (3.50-5.40) Hemoglobin 18.1 g/dL (12.0-15.5) 13.3 g/dL (12.0-15.5) Hematocrit 53.2 % (36.0-47.0) 40.1 % (36.0-47.0) Mean Corpuscular Volume 95 fL (79-100) 96 fL (79-100) Mean Corpuscular Hemoglobin 32 pg (25-35) 32 pg (25-35) Mean Corpuscular Hemoglobin Concent 34 g/dL (31-37) 33 g/dL (31-37) Red Cell Distribution Width 14.3 % (11.5-14.5) 13.9 % (11.5-14.5) Platelet Count 430 x10^3/uL (140-400) 308 x10^3/uL (140-400) Neutrophils (%) (Auto) 74 % (31-73) 56 % (31-73) Lymphocytes (%) (Auto) 18 % (24-48) 32 % (24-48) Monocytes (%) (Auto) 6 % (0-9) 9 % (0-9) Eosinophils (%) (Auto) 1 % (0-3) 2 % (0-3) Basophils (%) (Auto) 1 % (0-3) 1 % (0-3) Neutrophils # (Auto) 7.4 x10^3uL (1.8-7.7) 3.9 x10^3uL (1.8-7.7) Lymphocytes # (Auto) 1.8 x10^3/uL (1.0-4.8) 2.2 x10^3/uL (1.0-4.8) Monocytes # (Auto) 0.6 x10^3/uL (0.0-1.1) 0.6 x10^3/uL (0.0-1.1) Eosinophils # (Auto) 0.1 x10^3/uL (0.0-0.7) 0.2 x10^3/uL (0.0-0.7) Basophils # (Auto) 0.1 x10^3/uL (0.0-0.2) 0.1 x10^3/uL (0.0-0.2) Prothrombin Time 12.7 SEC (11.7-14.0) Prothromb Time International Ratio 1.0 (0.8-1.1) Sodium Level 138 mmol/L (136-145) 138 mmol/L (136-145) Potassium Level 3.8 mmol/L (3.5-5.1) 3.6 mmol/L (3.5-5.1) Chloride Level 97 mmol/L (98-107) 105 mmol/L (98-107) Carbon Dioxide Level 28 mmol/L (21-32) 26 mmol/L (21-32) Anion Gap 13 (6-14) 7 (6-14) Blood Urea Nitrogen 8 mg/dL (7-20) 9 mg/dL (7-20) Creatinine 0.8 mg/dL (0.6-1.0) 0.6 mg/dL (0.6-1.0) Estimated GFR (Cockcroft-Gault) 73.2 102.0 BUN/Creatinine Ratio 10 (6-20) Glucose Level 126 mg/dL (70-99) 90 mg/dL (70-99) Calcium Level 10.5 mg/dL (8.5-10.1) 9.4 mg/dL (8.5-10.1) Magnesium Level 1.7 mg/dL (1.8-2.4) Total Bilirubin 0.6 mg/dL (0.2-1.0) Aspartate Amino Transf (AST/SGOT) 17 U/L (15-37) Alanine Aminotransferase (ALT/SGPT) 17 U/L (14-59) Alkaline Phosphatase 101 U/L (46-116) Creatine Kinase 40 U/L (26-192) Creatine Kinase MB (Mass) 0.9 ng/mL (0.0-3.6) Creatine Kinase MB Relative Index % (0-4) BO-Gsb-R-Type Natriuretic Peptide 78 pg/mL (0-124) Total Protein 7.9 g/dL (6.4-8.2) Albumin 4.0 g/dL (3.4-5.0) Albumin/Globulin Ratio 1.0 (1.0-1.7) Lipase 94 U/L (73-393) Thyroid Stimulating Hormone (TSH) 3.422 uIU/mL (0.358-3.74) Ethyl Alcohol Level < 10 mg/dL (0-10) Troponin I Quantitative < 0.017 ng/mL (0.000-0.055) Laboratory Tests Test 07/31/18 03:35 White Blood Count 7.0 x10^3/uL (4.0-11.0) Red Blood Count 4.19 x10^6/uL (3.50-5.40) Hemoglobin 13.3 g/dL (12.0-15.5) Hematocrit 40.1 % (36.0-47.0) Mean Corpuscular Volume 96 fL (79-100) Mean Corpuscular Hemoglobin 32 pg (25-35) Mean Corpuscular Hemoglobin Concent 33 g/dL (31-37) Red Cell Distribution Width 13.9 % (11.5-14.5) Platelet Count 308 x10^3/uL (140-400) Neutrophils (%) (Auto) 56 % (31-73) Lymphocytes (%) (Auto) 32 % (24-48) Monocytes (%) (Auto) 9 % (0-9) Eosinophils (%) (Auto) 2 % (0-3) Basophils (%) (Auto) 1 % (0-3) Neutrophils # (Auto) 3.9 x10^3uL (1.8-7.7) Lymphocytes # (Auto) 2.2 x10^3/uL (1.0-4.8) Monocytes # (Auto) 0.6 x10^3/uL (0.0-1.1) Eosinophils # (Auto) 0.2 x10^3/uL (0.0-0.7) Basophils # (Auto) 0.1 x10^3/uL (0.0-0.2) Sodium Level 138 mmol/L (136-145) Potassium Level 3.6 mmol/L (3.5-5.1) Chloride Level 105 mmol/L (98-107) Carbon Dioxide Level 26 mmol/L (21-32) Anion Gap 7 (6-14) Blood Urea Nitrogen 9 mg/dL (7-20) Creatinine 0.6 mg/dL (0.6-1.0) Estimated GFR (Cockcroft-Gault) 102.0 Glucose Level 90 mg/dL (70-99) Calcium Level 9.4 mg/dL (8.5-10.1) Medications Current Medications Sodium Chloride 1,000 ml @ 1,000 mls/hr 1X ONCE IV Last administered on at 10:19; Start 07/30/18 at 09:45; Stop 07/30/18 at 10:44; Status DC Meclizine HCl (Antivert) 25 mg 1X ONCE PO Last administered on 07/30/18at 10:21 ; Start 07/30/18 at 09:45; Stop 07/30/18 at 09:50; Status DC Labetalol HCl (Normodyne Iv Push) 10 mg 1X ONCE IVP ; Start 07/30/18 at 10:00; Stop 07/30/18 at 10:01; Status DC Clonidine HCl (Catapres) 0.1 mg 1X ONCE PO Last administered on 07/30/18at 10: 20; Start 07/30/18 at 10:00; Stop 07/30/18 at 10:01; Status DC Ondansetron HCl (Zofran) 4 mg PRN Q8HRS PRN IV NAUSEA/VOMITING; Start 07/30/18 at 12:00; Stop 07/31/18 at 11:59 Acetaminophen (Tylenol) 650 mg PRN Q4HRS PRN PO FEVER; Start 07/30/18 at 12:00 ; Stop 07/31/18 at 11:59 Sodium Chloride 1,000 ml @ 75 mls/hr 1X ONCE IV Last administered on at 15:46; Start 07/30/18 at 12:00; Stop 07/31/18 at 01:19; Status DC Meclizine HCl (Antivert) 25 mg TID PRN PRN PO DIZZINESS; Start 07/30/18 at 12: 00 Nicotine Polacrilex (Nicorette Gum) 1 each PRN Q1HR PRN BC SMOKING CESSATION Last administered on 07/31/18 08:22; Start 07/30/18 at 15:45 Amlodipine Besylate (Norvasc) 10 mg DAILY PO Last administered on 07/31/18 11: 21; Start 07/31/18 at 09:00 Aspirin (Children'S Aspirin) 81 mg DAILY PO Last administered on 07/31/18 08: 13; Start 07/31/18 at 09:00 Clonidine HCl (Catapres) 0.2 mg BID PO Last administered on 07/30/18 21:21; Start 07/30/18 at 21:00 Losartan Potassium (Cozaar) 50 mg DAILY PO Last administered on 07/31/18 08:13 ; Start 07/31/18 at 09:00 Metoprolol Tartrate (Lopressor) 50 mg BID PO Last administered on 07/31/18 08: 13; Start 07/30/18 at 21:00 Active Scripts Active Amlodipine Besylate 10 Mg Tablet 10 Mg PO DAILY Losartan Potassium 50 Mg Tablet 50 Mg PO DAILY Clonidine Hcl 0.2 Mg Tablet 1 Tab PO BID Metoprolol Tartrate 50 Mg Tablet 1 Tab PO BID Reported Amlodipine Besylate 10 Mg Tablet 10 Mg PO DAILY Aspirin 81 Mg Tab.chew 81 Mg PO DAILY Losartan Potassium 50 Mg Tablet 50 Mg PO DAILY Clonidine Hcl 0.2 Mg Tablet 0.2 Mg PO BID Metoprolol Tartrate 50 Mg Tablet 50 Mg PO BID Vitals/I & O Vital Sign - Last 24 Hours 07/30/18 07/30/18 07/30/18 07/30/18 12:31 13:15 15:00 19:00 Temp 98.7 97.8 98.4 98.7 97.8 98.4 Pulse 76 73 81 79 Resp 18 16 16 18 B/P (MAP) 188/107 (134) 172/94 (120) 141/97 (112) Pulse Ox 94 96 96 95 O2 Delivery Room Air Room Air 07/30/18 07/30/18 07/30/18 07/30/18 21:20 21:21 23:00 23:00 Temp 98.2 98.2 Pulse 79 79 58 56 Resp 18 B/P (MAP) 141/97 141/97 90/61 (71) 108/65 (79) Pulse Ox 95 07/30/18 07/31/18 07/31/18 07/31/18 23:00 03:00 07:00 07:00 Temp 97.9 97.5 97.9 97.5 Pulse 61 57 84 62 Resp 18 12 B/P (MAP) 86/56 (66) 155/72 (99) 152/84 (106) 98/83 (88) Pulse Ox 95 96 O2 Delivery Room Air 07/31/18 07/31/18 07/31/18 07/31/18 07:00 08:00 08:13 08:13 Pulse 62 62 62 B/P (MAP) 159/85 (109) 159/85 159/85 O2 Delivery Room Air 07/31/18 07/31/18 11:00 11:21 Temp 98.3 98.3 Pulse 56 56 Resp 12 B/P (MAP) 135/78 (97) 135/78 Pulse Ox 99 O2 Delivery Room Air Intake and Output 07/30/18 07/30/18 07/31/18 14:59 22:59 06:59 Intake Total 1000 ml Balance 1000 ml JEAN-CLAUDE NOBLES III DO Jul 31, 2018 11:52
--- NOTE | 2018-07-31 12:22 | PDOC3 ---
Discharge Summary Visit Information Date of Admission: Jul 30, 2018 Date of Discharge: Jul 31, 2018 Admitting Diagnosis: Vertigo Final Diagnosis Problems Medical Problems: (1) Dizziness Status: Acute (2) HTN (hypertension) Status: Acute (3) Smoking addiction Status: Acute Brief Hospital Course Allergies Allergies Coded Allergies Type Severity Reaction Last Updated Verified No Known Drug Allergies 08/15/13 No Vital Signs Vital Signs Date Time Temp Pulse Resp B/P (MAP) Pulse Ox O2 Delivery O2 Flow Rate FiO2 07/31/18 11:21 56 135/78 07/31/18 11:00 98.3 12 99 Room Air 98.3 Lab Results Laboratory Tests Test 07/30/18 09:41 07/30/18 10:00 07/30/18 10:10 07/31/18 03:35 Urine Collection Type Unknown Urine Color Yellow Urine Clarity Clear Urine pH 6.0 Urine Specific [place] 1.010 Urine Protein Negative mg/dL (NEG-TRACE) Urine Glucose (UA) Negative mg/dL (NEG) Urine Ketones (Stick) Negative mg/dL (NEG) Urine Blood Negative (NEG) Urine Nitrite Negative (NEG) Urine Bilirubin Negative (NEG) Urine Urobilinogen Dipstick 1.0 mg/dL (0.2 mg/dL) Urine Leukocyte Esterase Negative (NEG) Urine RBC 0 /HPF (0-2) Urine WBC 0 /HPF (0-4) Urine Squamous Epithelial Cells Many /LPF Urine Bacteria 0 /HPF (0-FEW) Urine Opiates Screen Neg (NEG) Urine Methadone Screen Neg (NEG) Urine Barbiturates Neg (NEG) Urine Phencyclidine Screen Neg (NEG) Urine Amphetamine/Methamphetamine Neg (NEG) Urine Benzodiazepines Screen Neg (NEG) Urine Cocaine Screen Neg (NEG) Urine Cannabinoids Screen Neg (NEG) Urine Ethyl Alcohol Neg (NEG) White Blood Count 10.0 x10^3/uL (4.0-11.0) 7.0 x10^3/uL (4.0-11.0) Red Blood Count 5.62 x10^6/uL (3.50-5.40) 4.19 x10^6/uL (3.50-5.40) Hemoglobin 18.1 g/dL (12.0-15.5) 13.3 g/dL (12.0-15.5) Hematocrit 53.2 % (36.0-47.0) 40.1 % (36.0-47.0) Mean Corpuscular Volume 95 fL (79-100) 96 fL (79-100) Mean Corpuscular Hemoglobin 32 pg (25-35) 32 pg (25-35) Mean Corpuscular Hemoglobin Concent 34 g/dL (31-37) 33 g/dL (31-37) Red Cell Distribution Width 14.3 % (11.5-14.5) 13.9 % (11.5-14.5) Platelet Count 430 x10^3/uL (140-400) 308 x10^3/uL (140-400) Neutrophils (%) (Auto) 74 % (31-73) 56 % (31-73) Lymphocytes (%) (Auto) 18 % (24-48) 32 % (24-48) Monocytes (%) (Auto) 6 % (0-9) 9 % (0-9) Eosinophils (%) (Auto) 1 % (0-3) 2 % (0-3) Basophils (%) (Auto) 1 % (0-3) 1 % (0-3) Neutrophils # (Auto) 7.4 x10^3uL (1.8-7.7) 3.9 x10^3uL (1.8-7.7) Lymphocytes # (Auto) 1.8 x10^3/uL (1.0-4.8) 2.2 x10^3/uL (1.0-4.8) Monocytes # (Auto) 0.6 x10^3/uL (0.0-1.1) 0.6 x10^3/uL (0.0-1.1) Eosinophils # (Auto) 0.1 x10^3/uL (0.0-0.7) 0.2 x10^3/uL (0.0-0.7) Basophils # (Auto) 0.1 x10^3/uL (0.0-0.2) 0.1 x10^3/uL (0.0-0.2) Prothrombin Time 12.7 SEC (11.7-14.0) Prothromb Time International Ratio 1.0 (0.8-1.1) Sodium Level 138 mmol/L (136-145) 138 mmol/L (136-145) Potassium Level 3.8 mmol/L (3.5-5.1) 3.6 mmol/L (3.5-5.1) Chloride Level 97 mmol/L (98-107) 105 mmol/L (98-107) Carbon Dioxide Level 28 mmol/L (21-32) 26 mmol/L (21-32) Anion Gap 13 (6-14) 7 (6-14) Blood Urea Nitrogen 8 mg/dL (7-20) 9 mg/dL (7-20) Creatinine 0.8 mg/dL (0.6-1.0) 0.6 mg/dL (0.6-1.0) Estimated GFR (Cockcroft-Gault) 73.2 102.0 BUN/Creatinine Ratio 10 (6-20) Glucose Level 126 mg/dL (70-99) 90 mg/dL (70-99) Calcium Level 10.5 mg/dL (8.5-10.1) 9.4 mg/dL (8.5-10.1) Magnesium Level 1.7 mg/dL (1.8-2.4) Total Bilirubin 0.6 mg/dL (0.2-1.0) Aspartate Amino Transf (AST/SGOT) 17 U/L (15-37) Alanine Aminotransferase (ALT/SGPT) 17 U/L (14-59) Alkaline Phosphatase 101 U/L (46-116) Creatine Kinase 40 U/L (26-192) Creatine Kinase MB (Mass) 0.9 ng/mL (0.0-3.6) Creatine Kinase MB Relative Index % (0-4) MY-Cjw-R-Type Natriuretic Peptide 78 pg/mL (0-124) Total Protein 7.9 g/dL (6.4-8.2) Albumin 4.0 g/dL (3.4-5.0) Albumin/Globulin Ratio 1.0 (1.0-1.7) Lipase 94 U/L (73-393) Thyroid Stimulating Hormone (TSH) 3.422 uIU/mL (0.358-3.74) Ethyl Alcohol Level < 10 mg/dL (0-10) Troponin I Quantitative < 0.017 ng/mL (0.000-0.055) Laboratory Tests Test 07/31/18 03:35 White Blood Count 7.0 x10^3/uL (4.0-11.0) Red Blood Count 4.19 x10^6/uL (3.50-5.40) Hemoglobin 13.3 g/dL (12.0-15.5) Hematocrit 40.1 % (36.0-47.0) Mean Corpuscular Volume 96 fL (79-100) Mean Corpuscular Hemoglobin 32 pg (25-35) Mean Corpuscular Hemoglobin Concent 33 g/dL (31-37) Red Cell Distribution Width 13.9 % (11.5-14.5) Platelet Count 308 x10^3/uL (140-400) Neutrophils (%) (Auto) 56 % (31-73) Lymphocytes (%) (Auto) 32 % (24-48) Monocytes (%) (Auto) 9 % (0-9) Eosinophils (%) (Auto) 2 % (0-3) Basophils (%) (Auto) 1 % (0-3) Neutrophils # (Auto) 3.9 x10^3uL (1.8-7.7) Lymphocytes # (Auto) 2.2 x10^3/uL (1.0-4.8) Monocytes # (Auto) 0.6 x10^3/uL (0.0-1.1) Eosinophils # (Auto) 0.2 x10^3/uL (0.0-0.7) Basophils # (Auto) 0.1 x10^3/uL (0.0-0.2) Sodium Level 138 mmol/L (136-145) Potassium Level 3.6 mmol/L (3.5-5.1) Chloride Level 105 mmol/L (98-107) Carbon Dioxide Level 26 mmol/L (21-32) Anion Gap 7 (6-14) Blood Urea Nitrogen 9 mg/dL (7-20) Creatinine 0.6 mg/dL (0.6-1.0) Estimated GFR (Cockcroft-Gault) 102.0 Glucose Level 90 mg/dL (70-99) Calcium Level 9.4 mg/dL (8.5-10.1) Brief Hospital Course Ms. Posada is a 58 old [sex] who presented with Vertigo She is also a heavy smoker so hasn't erythrocytosis and thrombocytosis We admitted the patient and gave her Antivert and consultation neurology This morning I saw and examined her and her vertigo had resolved We did consult hematology and they felt her erythrocytosis was secondary to volume contraction and tobacco abuse sign point her heart tones were normal her lungs were clear abdomen was soft and extremities were noted without edema sign we plan to discharge with close outpatient follow-up Disposition is home Activity as tolerated Diet regular Medications please see below ( total time 34 minutes) ] Discharge Information Scheduled Amlodipine Besylate (Amlodipine Besylate) 10 Mg Tablet, 10 MG PO DAILY, ( Reported) Entered as Reported by: HEMANTH STEELE on 10/17/17323 Last Action: Continued on 07/30/181541 by NITIN GUTIERREZ RN Amlodipine Besylate (Amlodipine Besylate) 10 Mg Tablet, 10 MG PO DAILY, #14 Prescribed by: Matilde Wayne APRN on 07/29/181752 Aspirin (Aspirin) 81 Mg Tab.chew, 81 MG PO DAILY, (Reported) Entered as Reported by: HEMANTH STEELE on 10/17/17323 Last Action: Continued on 07/30/181541 by NITIN GUTIERREZ RN Clonidine Hcl (Clonidine Hcl) 0.2 Mg Tablet, 0.2 MG PO BID, (Reported) Entered as Reported by: HEMANTH STEELE on 10/17/17323 Last Action: Continued on 07/30/181541 by NITIN GUTIERREZ RN Clonidine Hcl (Clonidine Hcl) 0.2 Mg Tablet, 1 TAB PO BID, #28 Ref 0 Prescribed by: Matilde Wayne APRN on 07/29/181752 Losartan Potassium (Losartan Potassium) 50 Mg Tablet, 50 MG PO DAILY, (Reported) Entered as Reported by: HEMANTH STEELE on 10/17/17323 Last Action: Continued on 07/30/181541 by NITIN GUTIERREZ RN Losartan Potassium (Losartan Potassium) 50 Mg Tablet, 50 MG PO DAILY, #14 Prescribed by: Matilde Wayne APRN on 07/29/181752 Metoprolol Tartrate (Metoprolol Tartrate) 50 Mg Tablet, 50 MG PO BID for FOR HYPERTENSION, #60 Ref 0 (Reported) Entered as Reported by: HEMANTH STEELE on 10/17/17323 Last Action: Continued on 07/30/181541 by NITIN GUTIERREZ RN Metoprolol Tartrate (Metoprolol Tartrate) 50 Mg Tablet, 1 TAB PO BID, #28 Ref 0 Prescribed by: Matilde Wayne APRN on 07/29/18 1753 JEAN-CLAUDE NOBLES III DO Jul 31, 2018 12:22
--- NOTE | 2018-07-31 14:56 | NUR ---
Discharge Note: CHRISTIANO MAGUIRE [place] Discharge instructions and discharge home medications reviewed with Patient and a copy given. All questions have been answered and understanding verbalized. The following instructions and handouts were given: Patient given education regarding current medicine and about dizziness. Discontinued lines and drains: Iv removed per protocol. Patient discharged home. Patient walked out without being seen by staff. All paperwork had been given. Patient's neighbor supposedly picked patient up.
--- NOTE | 2018-07-31 15:05 | NUR ---
When discharging patient put patient as being discharged at 1200 instead of 1430.
--- NOTE | 2018-07-31 15:52 | PDOC2 ---
NEUROLOGY CONSULT Date of Admission Date of Admission DATE: 07/31/18 TIME: 15:42 Reason for Consult Reason for Consult: Worsening dizziness. hypertensive encephalopathy. Hypertensive urgency, BP 197/110 mmHg. DM. HTN. Ventriculomegaly. Smoking. Elevated Hgb, 18.1 g No evidence of CVA this time. No evidence of acute CVA this time. RECOMMENDATIONS/PLAN: Treat medical diseases. BP control. ASA daily. Smoking abstinence. See Psychiatry for substance abuse. See Hematology for elevated Hgb. Out patient base. HCT: Brain atrophy. HISTORY OF THE PRESENT ILLNESS: Patient is a 58 -year-old female patient with history of above medical diseases who presents to the ER of [facility] on 07/29/18 with complaints dizziness for "months" . Patient states the dizziness is worse when she gets up from sitting position very quickly. She left ER on AMA before any work up. She then returned to ER of [facility] on 07/30 due to worsening of her symptoms of dizziness and unsteadiness. She denies any nausea or vomiting. Denies a sensation of the room spinning or herself spinning. She states she is a smoker and is not willing to quit smoking because she does not like how the smoking cessation medications make her feel. PAST MEDICAL HISTORY: Diabetes, hypertension, hyperlipidemia, alcoholism, hypoglycemia, tonsillectomy. ALLERGIES: None. FAMILY HISTORY: Diabetes. SOCIAL HISTORY: She drinks alcohol. She smokes 1 pack a day x 40 years, and current decreased some. She lives alone. MEDICATIONS: Refer to [facility] REVIEW OF SYSTEMS: Constitutional: No cachexia. Head: No recent traumatic brain or head injury. Skin: No edema, or rash. Ear: No infection. Eyes: No vision loss, or diplopia. Nose: No bleeding or purulent discharges. Hearing: No hearing decrease. Neck: No injury. Breast: No history of cancer, masses, or discharges. Cardiac: HTN Pulmonary: No COPD. GI: No GI Ulcer, GI bleeding Urinary/genital: UTI. Endocrine: Diabetes Mellitus. Skeletomuscular: No muscular atrophy. Neurological: see HP. Psychiatric: Alcohol and tobacco use/abuse. Otherwise, not -nbnry review of systems. PHYSICAL EXAMINATION: General appearance in no acute distress. HEENT: Normocephalic and nontraumatic. Eyes, nose, ears, and throat are unremarkable. Neck is supple. No lymphadenopathy. No Crepitus. Cardiovascular: S1, S2, regular rate and rhythm. Pulmonary: Clear to auscultation bilaterally. Abdomen: Bowel sounds are positive. Extremities: No rash, lesions, or edema. No restriction of range of motion NEUROLOGICAL EXAMINATION: Awake. Partially oriented to time and knew place and person. 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. She understood questions asked her. PERRL. EOMI. CN: no focal findings. Muscle tone: within normal. Muscle strength: 5 DTR: 2 Plantar reflex: Flexor response bilaterally Gait: able to walk. Sensory exam: no abnormal findings. No acute cerebellar signs elicited. F-T-N test not accurate, but it is fine performance. Current Medications Current Medications Current Medications Sodium Chloride 1,000 ml @ 1,000 mls/hr 1X ONCE IV Last administered on at 10:19; Start 07/30/18 at 09:45; Stop 07/30/18 at 10:44; Status DC Meclizine HCl (Antivert) 25 mg 1X ONCE PO Last administered on 07/30/18at 10:21 ; Start 07/30/18 at 09:45; Stop 07/30/18 at 09:50; Status DC Labetalol HCl (Normodyne Iv Push) 10 mg 1X ONCE IVP ; Start 07/30/18 at 10:00; Stop 07/30/18 at 10:01; Status DC Clonidine HCl (Catapres) 0.1 mg 1X ONCE PO Last administered on 07/30/18at 10: 20; Start 07/30/18 at 10:00; Stop 07/30/18 at 10:01; Status DC Ondansetron HCl (Zofran) 4 mg PRN Q8HRS PRN IV NAUSEA/VOMITING; Start 07/30/18 at 12:00; Stop 07/31/18 at 11:59; Status DC Acetaminophen (Tylenol) 650 mg PRN Q4HRS PRN PO FEVER; Start 07/30/18 at 12:00 ; Stop 07/31/18 at 11:59; Status DC Sodium Chloride 1,000 ml @ 75 mls/hr 1X ONCE IV Last administered on at 15:46; Start 07/30/18 at 12:00; Stop 07/31/18 at 01:19; Status DC Meclizine HCl (Antivert) 25 mg TID PRN PRN PO DIZZINESS; Start 07/30/18 at 12: 00; Stop 07/31/18 at 14:59; Status DC Nicotine Polacrilex (Nicorette Gum) 1 each PRN Q1HR PRN BC SMOKING CESSATION Last administered on 07/31/18at 08:22; Start 07/30/18 at 15:45; Stop 07/31/18 at 14:59; Status DC Amlodipine Besylate (Norvasc) 10 mg DAILY PO Last administered on 07/31/18at 11: 21; Start 07/31/18 at 09:00; Stop 07/31/18 at 14:59; Status DC Aspirin (Children'S Aspirin) 81 mg DAILY PO Last administered on 07/31/18at 08: 13; Start 07/31/18 at 09:00; Stop 07/31/18 at 14:59; Status DC Clonidine HCl (Catapres) 0.2 mg BID PO Last administered on 07/30/18at 21:21; Start 07/30/18 at 21:00; Stop 07/31/18 at 14:59; Status DC Losartan Potassium (Cozaar) 50 mg DAILY PO Last administered on 07/31/18at 08:13 ; Start 07/31/18 at 09:00; Stop 07/31/18 at 14:59; Status DC Metoprolol Tartrate (Lopressor) 50 mg BID PO Last administered on 07/31/18at 08: 13; Start 07/30/18 at 21:00; Stop 07/31/18 at 14:59; Status DC Active Scripts Active Amlodipine Besylate 10 Mg Tablet 10 Mg PO DAILY Losartan Potassium 50 Mg Tablet 50 Mg PO DAILY Clonidine Hcl 0.2 Mg Tablet 1 Tab PO BID Metoprolol Tartrate 50 Mg Tablet 1 Tab PO BID Reported Amlodipine Besylate 10 Mg Tablet 10 Mg PO DAILY Aspirin 81 Mg Tab.chew 81 Mg PO DAILY Losartan Potassium 50 Mg Tablet 50 Mg PO DAILY Clonidine Hcl 0.2 Mg Tablet 0.2 Mg PO BID Metoprolol Tartrate 50 Mg Tablet 50 Mg PO BID Allergies Allergies: Allergies Coded Allergies Type Severity Reaction Last Updated Verified No Known Drug Allergies 08/15/13 No ROS Review of System The patient denies any associated fevers, chills, headache, ear pain, rhinorrhea , sore throat, stiff neck, productive cough, chest pain, shortness of breath, back or flank pain, abdominal pain, nausea, vomiting, diarrhea, constipation, dysuria, rash, numbness, weakness, tingling, incontinence, difficulty ambulating, or diaphoresis. Physical Exam Physical Exam General: Well developed, well nourished, no acute distress, well appearing HEENT: Pupils equally round and reactive to light, EOMI, no discharge, normal conjunctiva Neck: Supple, no nuchal rigidity, no JVD, trachea midline, no tenderness Cardiac: RRR, no murmurs, no gallops, no rubs Chest/Lungs: CTAB, no wheeze, no rhonchi, no crackles Abdomen: soft, non-distended, no guarding, no peritoneal signs, non-tender Back: No tenderness Extremities: no edema, pulses intact, non-tender,capillary refill <3 sec bilateral upper and lower extremities, Neuro: Alert and oriented x 4, no focal deficits, normal speech Vitals Vitals: Vital Signs Date Time Temp Pulse Resp B/P (MAP) Pulse Ox O2 Delivery O2 Flow Rate FiO2 07/31/18 11:21 56 135/78 07/31/18 11:00 98.3 12 99 Room Air 98.3 Labs Labs Laboratory Tests Test 07/30/18 09:41 07/30/18 10:00 07/30/18 10:10 07/31/18 03:35 Urine Collection Type Unknown Urine Color Yellow Urine Clarity Clear Urine pH 6.0 Urine Specific [place] 1.010 Urine Protein Negative mg/dL (NEG-TRACE) Urine Glucose (UA) Negative mg/dL (NEG) Urine Ketones (Stick) Negative mg/dL (NEG) Urine Blood Negative (NEG) Urine Nitrite Negative (NEG) Urine Bilirubin Negative (NEG) Urine Urobilinogen Dipstick 1.0 mg/dL (0.2 mg/dL) Urine Leukocyte Esterase Negative (NEG) Urine RBC 0 /HPF (0-2) Urine WBC 0 /HPF (0-4) Urine Squamous Epithelial Cells Many /LPF Urine Bacteria 0 /HPF (0-FEW) Urine Opiates Screen Neg (NEG) Urine Methadone Screen Neg (NEG) Urine Barbiturates Neg (NEG) Urine Phencyclidine Screen Neg (NEG) Urine Amphetamine/Methamphetamine Neg (NEG) Urine Benzodiazepines Screen Neg (NEG) Urine Cocaine Screen Neg (NEG) Urine Cannabinoids Screen Neg (NEG) Urine Ethyl Alcohol Neg (NEG) White Blood Count 10.0 x10^3/uL (4.0-11.0) 7.0 x10^3/uL (4.0-11.0) Red Blood Count 5.62 x10^6/uL (3.50-5.40) 4.19 x10^6/uL (3.50-5.40) Hemoglobin 18.1 g/dL (12.0-15.5) 13.3 g/dL (12.0-15.5) Hematocrit 53.2 % (36.0-47.0) 40.1 % (36.0-47.0) Mean Corpuscular Volume 95 fL (79-100) 96 fL (79-100) Mean Corpuscular Hemoglobin 32 pg (25-35) 32 pg (25-35) Mean Corpuscular Hemoglobin Concent 34 g/dL (31-37) 33 g/dL (31-37) Red Cell Distribution Width 14.3 % (11.5-14.5) 13.9 % (11.5-14.5) Platelet Count 430 x10^3/uL (140-400) 308 x10^3/uL (140-400) Neutrophils (%) (Auto) 74 % (31-73) 56 % (31-73) Lymphocytes (%) (Auto) 18 % (24-48) 32 % (24-48) Monocytes (%) (Auto) 6 % (0-9) 9 % (0-9) Eosinophils (%) (Auto) 1 % (0-3) 2 % (0-3) Basophils (%) (Auto) 1 % (0-3) 1 % (0-3) Neutrophils # (Auto) 7.4 x10^3uL (1.8-7.7) 3.9 x10^3uL (1.8-7.7) Lymphocytes # (Auto) 1.8 x10^3/uL (1.0-4.8) 2.2 x10^3/uL (1.0-4.8) Monocytes # (Auto) 0.6 x10^3/uL (0.0-1.1) 0.6 x10^3/uL (0.0-1.1) Eosinophils # (Auto) 0.1 x10^3/uL (0.0-0.7) 0.2 x10^3/uL (0.0-0.7) Basophils # (Auto) 0.1 x10^3/uL (0.0-0.2) 0.1 x10^3/uL (0.0-0.2) Prothrombin Time 12.7 SEC (11.7-14.0) Prothromb Time International Ratio 1.0 (0.8-1.1) Sodium Level 138 mmol/L (136-145) 138 mmol/L (136-145) Potassium Level 3.8 mmol/L (3.5-5.1) 3.6 mmol/L (3.5-5.1) Chloride Level 97 mmol/L (98-107) 105 mmol/L (98-107) Carbon Dioxide Level 28 mmol/L (21-32) 26 mmol/L (21-32) Anion Gap 13 (6-14) 7 (6-14) Blood Urea Nitrogen 8 mg/dL (7-20) 9 mg/dL (7-20) Creatinine 0.8 mg/dL (0.6-1.0) 0.6 mg/dL (0.6-1.0) Estimated GFR (Cockcroft-Gault) 73.2 102.0 BUN/Creatinine Ratio 10 (6-20) Glucose Level 126 mg/dL (70-99) 90 mg/dL (70-99) Calcium Level 10.5 mg/dL (8.5-10.1) 9.4 mg/dL (8.5-10.1) Magnesium Level 1.7 mg/dL (1.8-2.4) Total Bilirubin 0.6 mg/dL (0.2-1.0) Aspartate Amino Transf (AST/SGOT) 17 U/L (15-37) Alanine Aminotransferase (ALT/SGPT) 17 U/L (14-59) Alkaline Phosphatase 101 U/L (46-116) Creatine Kinase 40 U/L (26-192) Creatine Kinase MB (Mass) 0.9 ng/mL (0.0-3.6) Creatine Kinase MB Relative Index % (0-4) RM-Uuk-[id number]-Type Natriuretic Peptide 78 pg/mL (0-124) Total Protein 7.9 g/dL (6.4-8.2) Albumin 4.0 g/dL (3.4-5.0) Albumin/Globulin Ratio 1.0 (1.0-1.7) Lipase 94 U/L (73-393) Thyroid Stimulating Hormone (TSH) 3.422 uIU/mL (0.358-3.74) Ethyl Alcohol Level < 10 mg/dL (0-10) Troponin I Quantitative < 0.017 ng/mL (0.000-0.055) Laboratory Tests Test 07/31/18 03:35 White Blood Count 7.0 x10^3/uL (4.0-11.0) Red Blood Count 4.19 x10^6/uL (3.50-5.40) Hemoglobin 13.3 g/dL (12.0-15.5) Hematocrit 40.1 % (36.0-47.0) Mean Corpuscular Volume 96 fL (79-100) Mean Corpuscular Hemoglobin 32 pg (25-35) Mean Corpuscular Hemoglobin Concent 33 g/dL (31-37) Red Cell Distribution Width 13.9 % (11.5-14.5) Platelet Count 308 x10^3/uL (140-400) Neutrophils (%) (Auto) 56 % (31-73) Lymphocytes (%) (Auto) 32 % (24-48) Monocytes (%) (Auto) 9 % (0-9) Eosinophils (%) (Auto) 2 % (0-3) Basophils (%) (Auto) 1 % (0-3) Neutrophils # (Auto) 3.9 x10^3uL (1.8-7.7) Lymphocytes # (Auto) 2.2 x10^3/uL (1.0-4.8) Monocytes # (Auto) 0.6 x10^3/uL (0.0-1.1) Eosinophils # (Auto) 0.2 x10^3/uL (0.0-0.7) Basophils # (Auto) 0.1 x10^3/uL (0.0-0.2) Sodium Level 138 mmol/L (136-145) Potassium Level 3.6 mmol/L (3.5-5.1) Chloride Level 105 mmol/L (98-107) Carbon Dioxide Level 26 mmol/L (21-32) Anion Gap 7 (6-14) Blood Urea Nitrogen 9 mg/dL (7-20) Creatinine 0.6 mg/dL (0.6-1.0) Estimated GFR (Cockcroft-Gault) 102.0 Glucose Level 90 mg/dL (70-99) Calcium Level 9.4 mg/dL (8.5-10.1) KRYSTAL PERES MD Jul 31, 2018 15:52
== END 2018-07-31 12:00 | disposition home or self-care (01) | DRG 79 ==
LOC: ER 09:28 → 5 NORTH 11:47
PROVIDERS: ADMIT Internal Medicine; ATTEND Internal Medicine
DX: I67.4 Hypertensive encephalopathy (principal); I16.0 Hypertensive urgency; D75.1 Secondary polycythemia; E11.9 Type 2 diabetes mellitus without complications; E78.5 Hyperlipidemia, unspecified; E83.41 Hypermagnesemia; E83.52 Hypercalcemia; F17.200 Nicotine dependence, unspecified, uncomplicated; G31.9 Degenerative disease of nervous system, unspecified; G93.89 Other specified disorders of brain; F41.9 Anxiety disorder, unspecified; I10 Essential (primary) hypertension; J44.9 Chronic obstructive pulmonary disease, unspecified; M24.50 Contracture, unspecified joint; Z79.82 Long term (current) use of aspirin; Z79.899 Other long term (current) drug therapy; Z82.49 Family history of ischemic heart disease and other diseases of the circulatory system; Z86.73 Personal history of transient ischemic attack (TIA), and cerebral infarction without residual deficits; Z83.3 Family history of diabetes mellitus; Z71.6 Tobacco abuse counseling
CPT/HCPCS: 36415; 70450; 70551; 71045; 80048; 80053; 80307; 81001; 82553; 83690; 83735; 83880; 84443; 84484; 85025; 85610; 93005; 96360; 96361; G0480; J7030; J8597; 99285-25

== ENCOUNTER 2018-08-02 13:06 | Emergency (ER) | payer SELFPAY ==
[~2018-08-02] VITALS: Ht 167.6 cm; Wt 65.8 kg
[2018-08-02 13:44] LABS: BILIRUBIN,URINE NEGATIVE (NEG); CLARITY,URINE CLEAR; COLOR,URINE YELLOW; NITRITE,URINE NEGATIVE (NEG); PROTEIN,URINE NEGATIVE (NEG-TRACE)
[2018-08-02 13:47] LABS: BASO # 0.1 x10^3/uL (0.0-0.2); BASO % 1 % (0-3); EOS # 0.1 x10^3/uL (0.0-0.7); EOS % 1 % (0-3); HEMOGLOBIN 16.8 g/dL (12.0-15.5); LYMPH # 2.2 x10^3/uL (1.0-4.8); LYMPH % 21 % (24-48); MEAN CORPUSCULAR HEMOGLOBIN 32 pg (25-35); MEAN CORPUSCULAR HGB CONC 34 g/dL (31-37); MEAN CORPUSCULAR VOLUME 94 fL (79-100); MONO # 0.6 x10^3/uL (0.0-1.1); MONO % 6 % (0-9); NEUT # 7.3 x10^3uL (1.8-7.7); NEUT % 71 % (31-73); PLATELET COUNT 428 x10^3/uL (140-400); RED BLOOD COUNT 5.23 x10^6/uL (3.50-5.40); RED CELL DISTRIBUTION WIDTH 14.3 % (11.5-14.5); WHITE BLOOD COUNT 10.3 x10^3/uL (4.0-11.0)
[2018-08-02 13:56] LABS: PROTHROMBIN TIME PATIENT 12.6 SEC (11.7-14.0)
[2018-08-02] MEDS ORDERED: METOPROLOL TART IMMED RELEASE 50 MG TABLET. PO ONE (14:00)
[2018-08-02 14:02] LABS: CALCIUM 10.2 mg/dL (8.5-10.1); CREATININE 0.8 mg/dL (0.6-1.0); GFR 73.2; POTASSIUM 3.2 mmol/L (3.5-5.1)
[2018-08-02 14:07] LABS: ALBUMIN 3.9 g/dL (3.4-5.0); ALBUMIN/GLOBULIN RATIO 0.9 (1.0-1.7); MAGNESIUM 1.8 mg/dL (1.8-2.4); TOTAL BILIRUBIN 0.5 mg/dL (0.2-1.0); TOTAL PROTEIN 8.2 g/dL (6.4-8.2)
[2018-08-02 14:17] LABS: BACTERIA,URINE FEW /HPF (0-FEW); RBC,URINE 0 /HPF (0-2)
--- NOTE | 2018-08-02 14:17 | RAD ---
PORTABLE CHEST 1V Clinical indications: SHORT OF BREATH, SMOKER COMPARISON: July 30, 2018. Findings: Old granulomatous disease is evident. No acute lung infiltrate or pleural effusion or pulmonary edema or lung mass or pneumothorax is seen. The heart size, pulmonary vasculature, mediastinum and both andrade are unremarkable. Scoliosis is seen. Impression: No acute radiographic abnormality is seen. Electronically signed by: Terrance Ma MD (08/02/2018 2:14 PM) [place] [id number]
--- NOTE | 2018-08-02 15:15 | PHYS DOC ---
Past Medical History Past Medical History: Diabetes-Type II, Hypertension Additional Past Medical Histor: Hyponatremia, hypoglycemia Past Surgical History: Tonsillectomy Alcohol Use: None Drug Use: None Adult General Chief Complaint Chief Complaint: ALTERED MENTAL STATUS HPI HPI Patient is a 58 year old female presents from home for evaluation of "I am just not feeling good". She reports "my heart has been hurting and I am dizzy". She denies any shortness of breath. States she was recently seen in this emergency room 3 days ago with similar symptoms, stayed for admission and was discharged home. She does not have a primary care doctor for follow-up. Review of Systems Review of Systems Constitutional: Denies fever or chills [] Eyes: Denies change in visual acuity, redness, or eye pain [] HENT: Denies nasal congestion or sore throat [] Respiratory: Denies cough or shortness of breath [] Cardiovascular: No additional information not addressed in HPI [] GI: Denies abdominal pain, nausea, vomiting, bloody stools or diarrhea [] : Denies dysuria or hematuria [] Musculoskeletal: Denies back pain or joint pain [] Integument: Denies rash or skin lesions [] Neurologic: dizziness [] Endocrine: Denies polyuria or polydipsia [] All other systems were reviewed and found to be within normal limits, except as documented in this note. Current Medications Current Medications Current Medications Medications (Trade) Dose Ordered Sig/Jil Start Time Stop Time Status Last Admin Dose Admin Meclizine HCl (Antivert) 25 mg 1X ONCE 08/02/18 15:30 08/02/18 15:31 DC 08/02/18 16:05 25 MG Metoprolol Tartrate (Lopressor) 50 mg 1X ONCE 08/02/18 14:00 08/02/18 14:01 DC 08/02/18 14:27 50 MG Sodium Chloride 1,000 ml @ 1,000 mls/hr 1X ONCE 08/02/18 15:30 08/02/18 16:29 DC 08/02/18 16:05 1,000 MLS/HR Allergies Allergies Allergies Coded Allergies Type Severity Reaction Last Updated Verified No Known Drug Allergies 08/15/13 No Physical Exam Physical Exam Constitutional: Well developed, well nourished, no acute distress, non-toxic appearance. [] HENT: Normocephalic, atraumatic, bilateral external ears normal, oropharynx moist, no oral exudates, nose normal. [] Eyes: PERRLA, EOMI, conjunctiva normal, no discharge. [] Neck: Normal range of motion, no tenderness, supple, no stridor. [] Cardiovascular:Heart rate regular rhythm, no murmur [] Lungs & Thorax: Bilateral breath sounds clear to auscultation [] Abdomen: Bowel sounds normal, soft, no tenderness, no masses, no pulsatile masses. [] Skin: Warm, dry, no erythema, no rash. [] Back: No tenderness, no CVA tenderness. [] Extremities: No tenderness, no cyanosis, no clubbing, ROM intact, no edema. [] Neurologic: Alert and oriented X 3, normal motor function, normal sensory function, no focal deficits noted. [] Psychologic: Affect normal, judgement normal, mood normal. [] Current Patient Data Vital Signs Vital Signs Date Time Temp Pulse Resp B/P (MAP) Pulse Ox O2 Delivery O2 Flow Rate FiO2 08/02/18 16:35 110 95 08/02/18 14:28 17 08/02/18 14:27 168/109 08/02/18 13:06 99.0 Room Air 99.0 Lab Values Laboratory Tests Test 08/02/18 13:20 08/02/18 13:24 08/02/18 13:30 Urine Color Yellow Urine Clarity Clear Urine pH 7.0 Urine Specific [place] 1.015 Urine Protein Negative mg/dL (NEG-TRACE) Urine Glucose (UA) Negative mg/dL (NEG) Urine Ketones (Stick) Negative mg/dL (NEG) Urine Blood Negative (NEG) Urine Nitrite Negative (NEG) Urine Bilirubin Negative (NEG) Urine Urobilinogen Dipstick 1.0 mg/dL (0.2 mg/dL) Urine Leukocyte Esterase Negative (NEG) Urine RBC 0 /HPF (0-2) Urine WBC 1-4 /HPF (0-4) Urine Squamous Epithelial Cells None /LPF Urine Bacteria Few /HPF (0-FEW) Urine Mucus Mod /LPF Glucose (Fingerstick) 118 mg/dL (70-99) H White Blood Count 10.3 x10^3/uL (4.0-11.0) Red Blood Count 5.23 x10^6/uL (3.50-5.40) Hemoglobin 16.8 g/dL (12.0-15.5) H Hematocrit 49.0 % (36.0-47.0) H Mean Corpuscular Volume 94 fL (79-100) Mean Corpuscular Hemoglobin 32 pg (25-35) Mean Corpuscular Hemoglobin Concent 34 g/dL (31-37) Red Cell Distribution Width 14.3 % (11.5-14.5) Platelet Count 428 x10^3/uL (140-400) H Neutrophils (%) (Auto) 71 % (31-73) Lymphocytes (%) (Auto) 21 % (24-48) L Monocytes (%) (Auto) 6 % (0-9) Eosinophils (%) (Auto) 1 % (0-3) Basophils (%) (Auto) 1 % (0-3) Neutrophils # (Auto) 7.3 x10^3uL (1.8-7.7) Lymphocytes # (Auto) 2.2 x10^3/uL (1.0-4.8) Monocytes # (Auto) 0.6 x10^3/uL (0.0-1.1) Eosinophils # (Auto) 0.1 x10^3/uL (0.0-0.7) Basophils # (Auto) 0.1 x10^3/uL (0.0-0.2) Prothrombin Time 12.6 SEC (11.7-14.0) Prothrombin Time INR 1.0 (0.8-1.1) Sodium Level 137 mmol/L (136-145) Potassium Level 3.2 mmol/L (3.5-5.1) L Chloride Level 99 mmol/L (98-107) Carbon Dioxide Level 23 mmol/L (21-32) Anion Gap 15 (6-14) H Blood Urea Nitrogen 7 mg/dL (7-20) Creatinine 0.8 mg/dL (0.6-1.0) Estimated GFR (Cockcroft-Gault) 73.2 BUN/Creatinine Ratio 9 (6-20) Glucose Level 121 mg/dL (70-99) H Calcium Level 10.2 mg/dL (8.5-10.1) H Magnesium Level 1.8 mg/dL (1.8-2.4) Total Bilirubin 0.5 mg/dL (0.2-1.0) Aspartate Amino Transferase (AST) 16 U/L (15-37) Alanine Aminotransferase (ALT) 15 U/L (14-59) Alkaline Phosphatase 95 U/L (46-116) Troponin I Quantitative < 0.017 ng/mL (0.000-0.055) RB-Oqu-U-Type Natriuretic Peptide 209 pg/mL (0-124) H Total Protein 8.2 g/dL (6.4-8.2) Albumin 3.9 g/dL (3.4-5.0) Albumin/Globulin Ratio 0.9 (1.0-1.7) L Laboratory Tests 08/02/18 13:30 Laboratory Tests 08/02/18 13:30 EKG EKG [EKG read by emergency room physician heart rate 104 interpretation sinus tachycardia, no STEMI] Radiology/Procedures Radiology/Procedures [] Impressions: CT HEAD WO CONTRAST Clinical indications: DIZZINESS COMPARISON: July 30, 2018. Technique: Noncontrast axial cross sectional scanning of the head was performed. PQRS compliance Statement One or more of the following individualized dose reduction techniques were utilized for this study: 1. Automated exposure control 2. Adjustment of the mA and/or kV according to patient size 3. Use of iterative reconstruction technique Findings: No acute intracranial hemorrhage or midline shift or mass-effect or progressive hydrocephalus or extra-axial fluid collection is seen. Again seen is moderate bilateral periventricular white matter hypodensity which is stable consistent with chronic small vessel ischemic disease. No new focal hypodense area or sulci effacement is seen to indicate an acute infarct or edema radiographically. No skull fracture or pneumocephalus is seen. No opacification of the mastoid sinuses or the middle ear cavities or the paranasal sinuses is seen. The maxillary sinuses are not completely seen in this study. Impression: No new intracranial abnormality is seen. Stable head CT. Electronically signed by: Mindy Ma MD (08/02/2018 3:15 PM) [facility] DICTATED and SIGNED BY: MINDY MA MD DATE: 08/02/18 1515 TATUS: REG ER ORD. PHYSICIAN: RONDA ANGELES APRN REASON: chest pain, dizziness PROCEDURE: PORTABLE CHEST 1V PORTABLE CHEST 1V Clinical indications: SHORT OF BREATH, SMOKER COMPARISON: July 30, 2018. Findings: Old granulomatous disease is evident. No acute lung infiltrate or pleural effusion or pulmonary edema or lung mass or pneumothorax is seen. The heart size, pulmonary vasculature, mediastinum and both andrade are unremarkable. Scoliosis is seen. Impression: No acute radiographic abnormality is seen. Electronically signed by: Mindy Ma MD (08/02/2018 2:14 PM) [facility] DICTATED and SIGNED BY: MINDY MA MD DATE: 08/02/18 1414 Course & Med Decision Making Course & Med Decision Making Pertinent Labs and Imaging studies reviewed. (See chart for details) [Workup today name the emergency room fails to reveal any acute pathology. Patient has received IV fluids and by mouth meclizine, states she is feeling better. Offered admission to hospital for further evaluation, patient declined stating she would like to be discharged home. She denies having any chest pain or shortness of breath. She states she does not have a primary care doctor but sees a doctor that gives her her prescription refills. She is adamant that this is not a primary care doctor. She does have enough of her prescriptions at home. Have recommended she find a primary care doctor to follow up with, return to ER for new or worsening symptoms.] Dragon Disclaimer Dragon Disclaimer This electronic medical record was generated, in whole or in part, using a voice recognition dictation system. Departure Departure Impression: Primary Impression: Dizziness Disposition: 01 HOME, SELF-CARE Referrals: NO PCP (PCP) Patient Instructions: Dizziness, [id number] RONDA ANGELES DRY CLEANER APPRENTICE Aug 02, 2018 15:15
[2018-08-02] MEDS ORDERED: MECLIZINE HCL 12.5 MG TABLET. PO ONE (15:30)
[2018-08-02] MEDS ORDERED: IV NORMAL SALINE 1000ML BAG 1,000 ML IV ONE (15:30)
[2018-08-02 16:35] VITALS: BP 183/111
--- NOTE | 2018-08-03 06:32 | EKG ---
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
== END 2018-08-02 16:57 | disposition home or self-care (01) ==
LOC: ER 13:06
DX: R42 Dizziness and giddiness (principal); E11.9 Type 2 diabetes mellitus without complications; I10 Essential (primary) hypertension
CPT/HCPCS: 36415; 70450; 71045; 80053; 81001; 82962; 83735; 83880; 84484; 85025; 85610; 93005; 96360; 99285; J7030; J8597

== ENCOUNTER 2018-08-16 17:11 | Emergency (ER) | payer SELFPAY ==
[~2018-08-16] VITALS: Ht 157.5 cm; Wt 47.8 kg
[2018-08-16 18:05] LABS: BASO % 0 % (0-3); EOS # 0.1 x10^3/uL (0.0-0.7); EOS % 1 % (0-3); HEMATOCRIT 41.4 % (36.0-47.0); LYMPH # 1.7 x10^3/uL (1.0-4.8); LYMPH % 17 % (24-48); MEAN CORPUSCULAR HEMOGLOBIN 32 pg (25-35); MEAN CORPUSCULAR HGB CONC 34 g/dL (31-37); MEAN CORPUSCULAR VOLUME 95 fL (79-100); MONO # 0.7 x10^3/uL (0.0-1.1); MONO % 7 % (0-9); NEUT # 7.4 x10^3uL (1.8-7.7); NEUT % 75 % (31-73); PLATELET COUNT 336 x10^3/uL (140-400); RED BLOOD COUNT 4.37 x10^6/uL (3.50-5.40); RED CELL DISTRIBUTION WIDTH 14.4 % (11.5-14.5); WHITE BLOOD COUNT 9.9 x10^3/uL (4.0-11.0)
[2018-08-16 18:13] LABS: CALCIUM 9.8 mg/dL (8.5-10.1); CREATININE 0.6 mg/dL (0.6-1.0); POTASSIUM 3.3 mmol/L (3.5-5.1)
[2018-08-16 18:20] LABS: ALBUMIN 3.5 g/dL (3.4-5.0); ALBUMIN/GLOBULIN RATIO 1.1 (1.0-1.7); TOTAL BILIRUBIN 0.6 mg/dL (0.2-1.0); TOTAL PROTEIN 6.8 g/dL (6.4-8.2)
[2018-08-16 18:50] LABS: BILIRUBIN,URINE NEGATIVE (NEG); COLOR,URINE YELLOW; NITRITE,URINE NEGATIVE (NEG); PH,URINE 7.5; PROTEIN,URINE NEGATIVE (NEG-TRACE)
[2018-08-16 18:54] LABS: CLARITY,URINE CLEAR
[2018-08-16 18:57] LABS: BARBITURATES NEG (NEG); BENZODIAZEPINES NEG (NEG); CANNABINOIDS NEG (NEG); COCAINE NEG (NEG); METHADONE NEG (NEG); OPIATES NEG (NEG); PHENCYCLIDINE NEG (NEG)
[2018-08-16 19:00] LABS: AMPHETAMINE/METHAMPHETAMINE NEG (NEG); BACTERIA,URINE FEW /HPF (0-FEW); RBC,URINE 0 /HPF (0-2); SQUAMOUS EPITHELIAL CELL,UR MOD /LPF; WBC,URINE RARE /HPF (0-4)
[2018-08-16] MEDS ORDERED: cloNIDine HCL 0.1 MG TABLET PO ONE (19:30)
[2018-08-16] MEDS ORDERED: ALPRAZolam 0.5 MG TABLET PO ONE (19:30)
--- NOTE | 2018-08-16 20:24 | PHYS DOC ---
Past Medical History Past Medical History: Diabetes-Type II, Hypertension Additional Past Medical Histor: hyponatremia,hypoglycemia,L ventricle "functions at 60%" Past Surgical History: Tonsillectomy Alcohol Use: None Drug Use: None Adult General Chief Complaint Chief Complaint: SUICDAL IDEATION [facility] HPI Patient is a 58 year old female who presents with suicidal and homicidal ideation. The patient presented to the emergency department via EMS. The patient does have a long psychiatric history. She has had counseling at the [facility] and presented to [facility] last week where she left. She was at [facility] for treatment of suicidal and homicidal ideation. It is a voluntary facility and they were not able to force her to stay for treatment. She states that she has voices telling her she should harm herself. She denies having a specific plan. She feels a compulsion to harm others but states that she doesn't think she would ever act on that. She denies any psychiatric history to myself and my nurse. She denies having any psychiatric medications or diagnoses in the past. The information about her psychiatric history came from EMS and from the psychiatric assessment team. Review of Systems Review of Systems Constitutional: Denies fever or chills [] Eyes: Denies change in visual acuity, redness, or eye pain [] HENT: Denies nasal congestion or sore throat [] Respiratory: Denies cough or shortness of breath [] Cardiovascular: No additional information not addressed in HPI [] GI: Denies abdominal pain, nausea, vomiting, bloody stools or diarrhea [] : Denies dysuria or hematuria [] Musculoskeletal: Denies back pain or joint pain [] Integument: Denies rash or skin lesions [] Neurologic: Denies headache, focal weakness or sensory changes [] Endocrine: Denies polyuria or polydipsia [] All other systems were reviewed and found to be within normal limits, except as documented in this note. Current Medications Current Medications Current Medications Medications (Trade) Dose Ordered Sig/Jil Start Time Stop Time Status Last Admin Dose Admin Alprazolam (Xanax) 0.5 mg 1X ONCE 08/16/18 19:30 08/16/18 19:31 DC 08/16/18 19:30 0.5 MG Clonidine HCl (Catapres) 0.1 mg 1X ONCE 08/16/18 19:30 08/16/18 19:31 DC 08/16/18 19:30 0.1 MG Allergies Allergies Allergies Coded Allergies Type Severity Reaction Last Updated Verified No Known Drug Allergies 08/15/13 No Physical Exam Physical Exam Constitutional: Well developed, well nourished, no acute distress, non-toxic appearance. [] HENT: Normocephalic, atraumatic, bilateral external ears normal, oropharynx moist, no oral exudates, nose normal. [] Eyes: PERRLA, EOMI, conjunctiva normal, no discharge. [] Neck: Normal range of motion, no tenderness, supple, no stridor. [] Cardiovascular:Heart rate regular rhythm, no murmur [] Lungs & Thorax: Bilateral breath sounds clear to auscultation [] Abdomen: Bowel sounds normal, soft, no tenderness, no masses, no pulsatile masses. [] Skin: Warm, dry, no erythema, no rash. [] Back: No tenderness, no CVA tenderness. [] Extremities: No tenderness, no cyanosis, no clubbing, ROM intact, no edema. [] Neurologic: Alert and oriented X 3, normal motor function, normal sensory function, no focal deficits noted. [] Psychologic: The patient is very emotionally labile, she is calm one moment and then is tearful the next [] Current Patient Data Vital Signs Vital Signs Date Time Temp Pulse Resp B/P (MAP) Pulse Ox O2 Delivery O2 Flow Rate FiO2 08/16/18 19:30 85 219/105 08/16/18 19:00 18 97 Room Air 08/16/18 17:11 98.9 98.9 Lab Values Laboratory Tests Test 08/16/18 18:00 08/16/18 18:42 White Blood Count 9.9 x10^3/uL (4.0-11.0) Red Blood Count 4.37 x10^6/uL (3.50-5.40) Hemoglobin 14.0 g/dL (12.0-15.5) Hematocrit 41.4 % (36.0-47.0) Mean Corpuscular Volume 95 fL (79-100) Mean Corpuscular Hemoglobin 32 pg (25-35) Mean Corpuscular Hemoglobin Concent 34 g/dL (31-37) Red Cell Distribution Width 14.4 % (11.5-14.5) Platelet Count 336 x10^3/uL (140-400) Neutrophils (%) (Auto) 75 % (31-73) H Lymphocytes (%) (Auto) 17 % (24-48) L Monocytes (%) (Auto) 7 % (0-9) Eosinophils (%) (Auto) 1 % (0-3) Basophils (%) (Auto) 0 % (0-3) Neutrophils # (Auto) 7.4 x10^3uL (1.8-7.7) Lymphocytes # (Auto) 1.7 x10^3/uL (1.0-4.8) Monocytes # (Auto) 0.7 x10^3/uL (0.0-1.1) Eosinophils # (Auto) 0.1 x10^3/uL (0.0-0.7) Basophils # (Auto) 0.0 x10^3/uL (0.0-0.2) Sodium Level 137 mmol/L (136-145) Potassium Level 3.3 mmol/L (3.5-5.1) L Chloride Level 99 mmol/L (98-107) Carbon Dioxide Level 29 mmol/L (21-32) Anion Gap 9 (6-14) Blood Urea Nitrogen 4 mg/dL (7-20) L Creatinine 0.6 mg/dL (0.6-1.0) Estimated GFR (Cockcroft-Gault) 102.0 BUN/Creatinine Ratio 7 (6-20) Glucose Level 109 mg/dL (70-99) H Calcium Level 9.8 mg/dL (8.5-10.1) Total Bilirubin 0.6 mg/dL (0.2-1.0) Aspartate Amino Transferase (AST) 18 U/L (15-37) Alanine Aminotransferase (ALT) 17 U/L (14-59) Alkaline Phosphatase 86 U/L (46-116) Total Protein 6.8 g/dL (6.4-8.2) Albumin 3.5 g/dL (3.4-5.0) Albumin/Globulin Ratio 1.1 (1.0-1.7) Thyroid Stimulating Hormone (TSH) 3.314 uIU/mL (0.358-3.74) Urine Collection Type Void Urine Color Yellow Urine Clarity Clear Urine pH 7.5 Urine Specific [place] <=1.005 Urine Protein Negative mg/dL (NEG-TRACE) Urine Glucose (UA) Negative mg/dL (NEG) Urine Ketones (Stick) Negative mg/dL (NEG) Urine Blood Negative (NEG) Urine Nitrite Negative (NEG) Urine Bilirubin Negative (NEG) Urine Urobilinogen Dipstick 1.0 mg/dL (0.2 mg/dL) Urine Leukocyte Esterase Negative (NEG) Urine RBC 0 /HPF (0-2) Urine WBC Rare /HPF (0-4) Urine Squamous Epithelial Cells Mod /LPF Urine Bacteria Few /HPF (0-FEW) Urine Opiates Screen Neg (NEG) Urine Methadone Screen Neg (NEG) Urine Barbiturates Neg (NEG) Urine Phencyclidine Screen Neg (NEG) Urine Amphetamine/Methamphetamine Neg (NEG) Urine Benzodiazepines Screen Neg (NEG) Urine Cocaine Screen Neg (NEG) Urine Cannabinoids Screen Neg (NEG) Urine Ethyl Alcohol Neg (NEG) Laboratory Tests 08/16/18 18:00 Laboratory Tests 08/16/18 18:00 EKG EKG [] Radiology/Procedures Radiology/Procedures [] Course & Med Decision Making Course & Med Decision Making Pertinent Labs and Imaging studies reviewed. (See chart for details) Zulma, with the psychiatric assessment team is here with the patient. There is been no medical cause found to contribute to the patient's psychiatric state. The patient is denying plans of suicide or homicide. The patient has made a safety plan with the psychiatric assessment cafe team member. She will be given a cab pass to go home. The patient is to follow-up with her counselor at the [facility]. A message was left at the [facility] with the counselor to reach out to the patient as well. She has been instructed to return if she has any worsening of her symptoms. She is in agreement with this plan. Dragon Disclaimer Dragon Disclaimer This electronic medical record was generated, in whole or in part, using a voice recognition dictation system. Departure Departure Impression: Primary Impression: Suicidal ideation Additional Impression: Homicidal ideation Disposition: 01 HOME, SELF-CARE Condition: STABLE Referrals: SONU CRAWFORD JR, MD (PCP) Additional Instructions: Follow your safety plan and will follow up with your counselor tomorrow at the [facility]. Return to the emergency department immediately if worsening. Problem Qualifiers JASEN CORTEZ APRN August 16, 2018 20:24
[2018-08-16 20:30] VITALS: BP 122/76
== END 2018-08-16 20:50 | disposition home or self-care (01) ==
LOC: ER 17:11
DX: R45.850 Homicidal ideations (principal); R45.851 Suicidal ideations; E11.649 Type 2 diabetes mellitus with hypoglycemia without coma; I10 Essential (primary) hypertension; Z90.89 Acquired absence of other organs
CPT/HCPCS: 36415; 80053; 80307; 81001; 84443; 85025; 99284

== ENCOUNTER 2018-08-27 20:48 | Emergency (ER) | payer SELFPAY ==
[~2018-08-27] VITALS: Ht 157.5 cm; Wt 47.6 kg
[2018-08-27] MEDS ORDERED: MECLIZINE HCL 12.5 MG TABLET. PO ONE (21:30)
[2018-08-27] MEDS ORDERED: IV NORMAL SALINE 1000ML BAG 1,000 ML IV ONE (21:30)
[2018-08-27 22:15] LABS: BASO # 0.1 x10^3/uL (0.0-0.2); BASO % 1 % (0-3); EOS # 0.1 x10^3/uL (0.0-0.7); EOS % 1 % (0-3); LYMPH # 2.7 x10^3/uL (1.0-4.8); LYMPH % 29 % (24-48); MEAN CORPUSCULAR HEMOGLOBIN 32 pg (25-35); MEAN CORPUSCULAR HGB CONC 33 g/dL (31-37); MEAN CORPUSCULAR VOLUME 96 fL (79-100); MONO # 0.6 x10^3/uL (0.0-1.1); MONO % 7 % (0-9); NEUT % 63 % (31-73); PLATELET COUNT 349 x10^3/uL (140-400); RED BLOOD COUNT 4.38 x10^6/uL (3.50-5.40); RED CELL DISTRIBUTION WIDTH 14.7 % (11.5-14.5); WHITE BLOOD COUNT 9.5 x10^3/uL (4.0-11.0)
[2018-08-27 22:27] LABS: CALCIUM 9.5 mg/dL (8.5-10.1); CREATININE 0.7 mg/dL (0.6-1.0); GFR 85.4; POTASSIUM 4.1 mmol/L (3.5-5.1)
[2018-08-27 22:34] LABS: ALBUMIN 3.4 g/dL (3.4-5.0); ALBUMIN/GLOBULIN RATIO 0.9 (1.0-1.7); MAGNESIUM 1.8 mg/dL (1.8-2.4); TOTAL BILIRUBIN 0.2 mg/dL (0.2-1.0); TOTAL PROTEIN 7.1 g/dL (6.4-8.2)
[2018-08-27 22:39] LABS: CREATINE KINASE 51 U/L (26-192)
[2018-08-27 23:40] VITALS: BP 103/62
[2018-08-28 00:04] LABS: BILIRUBIN,URINE NEGATIVE (NEG); CLARITY,URINE CLEAR; COLOR,URINE YELLOW; NITRITE,URINE NEGATIVE (NEG); PROTEIN,URINE NEGATIVE (NEG-TRACE); UROBILINOGEN,URINE 0.2 mg/dL (0.2 mg/dL)
[2018-08-28 00:13] LABS: BACTERIA,URINE FEW /HPF (0-FEW); RBC,URINE 0 /HPF (0-2); SQUAMOUS EPITHELIAL CELL,UR MOD /LPF
[2018-08-28] MEDS ORDERED: LORA0.5T96 PO (00:30)
[2018-08-28] MEDS ORDERED: MECL25TA3 PO (00:30)
--- NOTE | 2018-08-28 00:30 | PHYS DOC ---
Past Medical History Past Medical History: Diabetes-Type II, Hypertension Additional Past Medical Histor: hyponatremia,hypoglycemia,L ventricle "functions at 60%" Past Surgical History: Tonsillectomy Alcohol Use: None Drug Use: None Adult General Chief Complaint Chief Complaint: ALTERED MENTAL STATUS [facility] HPI Patient is a 58 year old [f__sex] who presents with [] Review of Systems Review of Systems Constitutional: Denies fever or chills [] Eyes: Denies change in visual acuity, redness, or eye pain [] HENT: Denies nasal congestion or sore throat [] Respiratory: Denies cough or shortness of breath [] Cardiovascular: No additional information not addressed in HPI [] GI: Denies abdominal pain, nausea, vomiting, bloody stools or diarrhea [] : Denies dysuria or hematuria [] Musculoskeletal: Denies back pain or joint pain [] Integument: Denies rash or skin lesions [] Neurologic: Denies headache, focal weakness or sensory changes [] Endocrine: Denies polyuria or polydipsia [] All other systems were reviewed and found to be within normal limits, except as documented in this note. Current Medications Current Medications Current Medications Medications (Trade) Dose Ordered Sig/Jil Start Time Stop Time Status Last Admin Dose Admin Lorazepam (Ativan Inj) 0.5 mg 1X ONCE 08/27/18 22:55 08/27/18 22:56 DC 08/27/18 22:53 0.5 MG Lorazepam (Ativan) 0.5 mg 1X ONCE 08/28/18 01:00 08/28/18 01:01 DC 08/28/18 01:14 0.5 MG Meclizine HCl (Antivert) 25 mg 1X ONCE 08/27/18 21:30 08/27/18 21:31 DC 08/27/18 21:31 25 MG Sodium Chloride 1,000 ml @ 1,000 mls/hr 1X ONCE 08/27/18 21:30 08/27/18 22:29 DC 08/27/18 21:30 1,000 MLS/HR Allergies Allergies Allergies Coded Allergies Type Severity Reaction Last Updated Verified No Known Drug Allergies 08/15/13 No Physical Exam Physical Exam Constitutional: Well developed, well nourished, no acute distress, non-toxic appearance. [] HENT: Normocephalic, atraumatic, bilateral external ears normal, oropharynx moist, no oral exudates, nose normal. [] Eyes: PERRLA, EOMI, conjunctiva normal, no discharge. [] Neck: Normal range of motion, no tenderness, supple, no stridor. [] Cardiovascular:Heart rate regular rhythm, no murmur [] Lungs & Thorax: Bilateral breath sounds clear to auscultation [] Abdomen: Bowel sounds normal, soft, no tenderness, no masses, no pulsatile masses. [] Skin: Warm, dry, no erythema, no rash. [] Back: No tenderness, no CVA tenderness. [] Extremities: No tenderness, no cyanosis, no clubbing, ROM intact, no edema. [] Neurologic: Alert and oriented X 3, normal motor function, normal sensory function, no focal deficits noted. [] Psychologic: Affect normal, judgement normal, mood normal. [] Current Patient Data Vital Signs Vital Signs Date Time Temp Pulse Resp B/P (MAP) Pulse Ox O2 Delivery O2 Flow Rate FiO2 08/27/18 23:40 54 96 08/27/18 20:50 98.2 18 141/87 (105) Room Air 98.2 Lab Values Laboratory Tests Test 08/27/18 22:00 08/27/18 23:20 White Blood Count 9.5 x10^3/uL (4.0-11.0) Red Blood Count 4.38 x10^6/uL (3.50-5.40) Hemoglobin 14.0 g/dL (12.0-15.5) Hematocrit 42.0 % (36.0-47.0) Mean Corpuscular Volume 96 fL (79-100) Mean Corpuscular Hemoglobin 32 pg (25-35) Mean Corpuscular Hemoglobin Concent 33 g/dL (31-37) Red Cell Distribution Width 14.7 % (11.5-14.5) H Platelet Count 349 x10^3/uL (140-400) Neutrophils (%) (Auto) 63 % (31-73) Lymphocytes (%) (Auto) 29 % (24-48) Monocytes (%) (Auto) 7 % (0-9) Eosinophils (%) (Auto) 1 % (0-3) Basophils (%) (Auto) 1 % (0-3) Neutrophils # (Auto) 6.0 x10^3uL (1.8-7.7) Lymphocytes # (Auto) 2.7 x10^3/uL (1.0-4.8) Monocytes # (Auto) 0.6 x10^3/uL (0.0-1.1) Eosinophils # (Auto) 0.1 x10^3/uL (0.0-0.7) Basophils # (Auto) 0.1 x10^3/uL (0.0-0.2) Sodium Level 137 mmol/L (136-145) Potassium Level 4.1 mmol/L (3.5-5.1) Chloride Level 102 mmol/L (98-107) Carbon Dioxide Level 26 mmol/L (21-32) Anion Gap 9 (6-14) Blood Urea Nitrogen 11 mg/dL (7-20) Creatinine 0.7 mg/dL (0.6-1.0) Estimated GFR (Cockcroft-Gault) 85.4 BUN/Creatinine Ratio 16 (6-20) Glucose Level 96 mg/dL (70-99) Calcium Level 9.5 mg/dL (8.5-10.1) Magnesium Level 1.8 mg/dL (1.8-2.4) Total Bilirubin 0.2 mg/dL (0.2-1.0) Aspartate Amino Transferase (AST) 18 U/L (15-37) Alanine Aminotransferase (ALT) 20 U/L (14-59) Alkaline Phosphatase 87 U/L (46-116) Creatine Kinase 51 U/L (26-192) Creatine Kinase MB (Mass) 0.8 ng/mL (0.0-3.6) Creatine Kinase MB Relative Index % (0-4) Troponin I Quantitative < 0.017 ng/mL (0.000-0.055) Total Protein 7.1 g/dL (6.4-8.2) Albumin 3.4 g/dL (3.4-5.0) Albumin/Globulin Ratio 0.9 (1.0-1.7) L Urine Collection Type Unknown Urine Color Yellow Urine Clarity Clear Urine pH 7.0 Urine Specific [place] <=1.005 Urine Protein Negative mg/dL (NEG-TRACE) Urine Glucose (UA) Negative mg/dL (NEG) Urine Ketones (Stick) Negative mg/dL (NEG) Urine Blood Negative (NEG) Urine Nitrite Negative (NEG) Urine Bilirubin Negative (NEG) Urine Urobilinogen Dipstick 0.2 mg/dL (0.2 mg/dL) Urine Leukocyte Esterase Trace (NEG) Urine RBC 0 /HPF (0-2) Urine WBC 1-4 /HPF (0-4) Urine Squamous Epithelial Cells Mod /LPF Urine Bacteria Few /HPF (0-FEW) Laboratory Tests 08/27/18 22:00 Laboratory Tests 08/27/18 22:00 EKG EKG @ 2129 Sinus bradycardia at 56bpm, NO ST elevation, prominent t waves noted to V4-V6 Radiology/Procedures Radiology/Procedures [] Course & Med Decision Making Course & Med Decision Making Pertinent Labs and Imaging studies reviewed. (See chart for details) [] Dragon Disclaimer Dragon Disclaimer This electronic medical record was generated, in whole or in part, using a voice recognition dictation system. Departure Departure Impression: Primary Impression: Dizziness Additional Impression: Anxiety Disposition: HOME, SELF-CARE Condition: STABLE Referrals: SONU CRAWFORD JR, MD (PCP) Patient Instructions: Anxiety and Panic Attacks, [id number], Dizziness, [id number] Scripts Lorazepam (ATIVAN) 0.5 Mg Tablet 0.5 MG PO TID PRN for ANXIETY, #10 TAB Prov: AMRITA LAMB DO 08/28/18 Meclizine Hcl (MECLIZINE HCL) 25 Mg Tablet 1 TAB PO PRN TID PRN for DIZZINESS, #20 TAB Prov: AMRITA LAMB DO 08/28/18 Problem Qualifiers AMRITA LAMB DO August 28, 2018 00:30
[2018-08-28] MEDS ORDERED: LORazepam 0.5 MG TABLET PO ONE (01:00)
--- NOTE | 2018-08-29 11:18 | EKG ---
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
== END 2018-08-28 01:10 | disposition home or self-care (01) ==
LOC: ER 20:48
DX: F41.9 Anxiety disorder, unspecified (principal); R42 Dizziness and giddiness; I10 Essential (primary) hypertension; E11.649 Type 2 diabetes mellitus with hypoglycemia without coma; Z90.89 Acquired absence of other organs
CPT/HCPCS: 36415; 80053; 81001; 82553; 83735; 84484; 85025; 87086; 93005; 96361; 96374; 99285; J2060; J7030; J8597

== ENCOUNTER 2018-09-03 10:08 | Inpatient (IN) | payer SELFPAY ==
[~2018-09-03] VITALS: Ht 157.5 cm; Wt 49.9 kg
[~2018-09-03 10:08] MED LIST changes: +LORA0.5T96 PO; +MECL25TA3 PO
[2018-09-03] MEDS ORDERED: IV NORMAL SALINE 1000ML BAG 1,000 ML IV ONE (10:45)
[2018-09-03 11:03] LABS: BASO # 0.1 x10^3/uL (0.0-0.2); BASO % 1 % (0-3); EOS % 0 % (0-3); HEMATOCRIT 43.1 % (36.0-47.0); HEMOGLOBIN 14.9 g/dL (12.0-15.5); LYMPH # 1.6 x10^3/uL (1.0-4.8); LYMPH % 22 % (24-48); MEAN CORPUSCULAR HEMOGLOBIN 33 pg (25-35); MEAN CORPUSCULAR HGB CONC 35 g/dL (31-37); MEAN CORPUSCULAR VOLUME 94 fL (79-100); MONO # 0.6 x10^3/uL (0.0-1.1); MONO % 8 % (0-9); NEUT % 69 % (31-73); PLATELET COUNT 385 x10^3/uL (140-400); RED BLOOD COUNT 4.57 x10^6/uL (3.50-5.40); RED CELL DISTRIBUTION WIDTH 14.2 % (11.5-14.5); WHITE BLOOD COUNT 7.3 x10^3/uL (4.0-11.0)
--- NOTE | 2018-09-03 11:08 | RAD ---
AP chest, 09/03/2018: HISTORY: Dizziness Comparison is made to a study from 08/02/2018. The heart size and pulmonary vascularity are normal. There is calcific plaquing of the aorta. Scattered calcified granulomata are present in the lungs. No acute infiltrate is seen. There is no evidence of pleural fluid. The bony structures are demineralized. There is a mild thoracolumbar scoliosis with scattered degenerative change. IMPRESSION: No acute cardiopulmonary abnormality is detected. Electronically signed by: Rachid Denney MD (09/03/2018 11:05 AM) [facility]
[2018-09-03 11:10] LABS: CALCIUM 10.1 mg/dL (8.5-10.1); CREATININE 0.6 mg/dL (0.6-1.0); POTASSIUM 3.6 mmol/L (3.5-5.1)
--- NOTE | 2018-09-03 11:11 | PHYS DOC ---
Past Medical History Past Medical History: Diabetes-Type II, Hypertension Additional Past Medical Histor: hyponatremia,hypoglycemia,L ventricle "functions at 60%" Past Surgical History: Tonsillectomy Smoking: Cigarettes Alcohol Use: None Drug Use: None Adult General Chief Complaint Chief Complaint: DIZZY/LIGHT HEADED HPI HPI Patient is a 58 year old female who presents with dizziness that began at around 0900 this morning. She states that "it feels like an earthquake" and that "you're spinning, he's spinning, the whole room is spinning." She has chronic paresthesias of her left arm and bilateral lower extremities but states she has no new numbness, tingling or extremity weakness. She denies headache but does feel nauseous and almost vomited in route to the ED. She denies any changes in hearing and has not had upper respiratory illness symptoms recently. Review of Systems Review of Systems Constitutional: Denies fever or chills Eyes: Denies redness or eye pain HENT: Denies nasal congestion or sore throat Respiratory: Denies cough or shortness of breath Cardiovascular: Denies chest pain or palpitations GI: Reports nausea. Denies abdominal pain or vomiting. Neurologic: Reports dizziness, vertigo. Denies headache, focal weakness or sensory changes from baseline Complete systems were reviewed and found to be within normal limits, except as d ocumented in this note. Current Medications Current Medications Current Medications Medications (Trade) Dose Ordered Sig/Jil Start Time Stop Time Status Last Admin Dose Admin Diazepam (Valium) 5 mg 1X ONCE 09/03/18 13:30 09/03/18 13:31 Magnesium Sulfate 50 ml @ 25 mls/hr 1X ONCE 09/03/18 13:30 09/03/18 15:29 UNV Meclizine HCl (Antivert) 25 mg 1X ONCE 09/03/18 11:15 09/03/18 11:16 DC 09/03/18 10:47 25 MG Ondansetron HCl (Zofran) 4 mg 1X ONCE 09/03/18 13:30 09/03/18 13:31 Sodium Chloride 1,000 ml @ 1,000 mls/hr 1X ONCE 09/03/18 10:45 09/03/18 11:44 DC 09/03/18 10:50 1,000 MLS/HR Allergies Allergies Allergies Coded Allergies Type Severity Reaction Last Updated Verified No Known Drug Allergies 08/15/13 No Physical Exam Physical Exam Constitutional: Well developed, well nourished, no acute distress, non-toxic appearance HENT: Normocephalic, atraumatic, oropharynx moist Eyes: PERRL, EOMI, nystagmus noted on horizontal gaze Neck: Normal range of motion, no tenderness, supple Cardiovascular: Heart rate normal, regular rhythm Lungs & Thorax: Bilateral breath sounds clear to auscultation, no wheezing Abdomen: Soft, no tenderness Extremities: Radial pulses +2 bilaterally, cap refill less than 2 seconds. Neurologic: Alert and oriented, normal motor function, decreases sensation on left UE which patient states is preexisting, no focal deficits noted, finger to nose test normal Psychologic: Affect normal, judgement normal, mood normal Current Patient Data Vital Signs Vital Signs Date Time Temp Pulse Resp B/P (MAP) Pulse Ox O2 Delivery O2 Flow Rate FiO2 09/03/18 10:08 98.3 69 18 171/91 (117) 99 Room Air 98.3 Lab Values Laboratory Tests Test 09/03/18 10:14 White Blood Count 7.3 x10^3/uL (4.0-11.0) Red Blood Count 4.57 x10^6/uL (3.50-5.40) Hemoglobin 14.9 g/dL (12.0-15.5) Hematocrit 43.1 % (36.0-47.0) Mean Corpuscular Volume 94 fL (79-100) Mean Corpuscular Hemoglobin 33 pg (25-35) Mean Corpuscular Hemoglobin Concent 35 g/dL (31-37) Red Cell Distribution Width 14.2 % (11.5-14.5) Platelet Count 385 x10^3/uL (140-400) Neutrophils (%) (Auto) 69 % (31-73) Lymphocytes (%) (Auto) 22 % (24-48) L Monocytes (%) (Auto) 8 % (0-9) Eosinophils (%) (Auto) 0 % (0-3) Basophils (%) (Auto) 1 % (0-3) Neutrophils # (Auto) 5.0 x10^3uL (1.8-7.7) Lymphocytes # (Auto) 1.6 x10^3/uL (1.0-4.8) Monocytes # (Auto) 0.6 x10^3/uL (0.0-1.1) Eosinophils # (Auto) 0.0 x10^3/uL (0.0-0.7) Basophils # (Auto) 0.1 x10^3/uL (0.0-0.2) Sodium Level 136 mmol/L (136-145) Potassium Level 3.6 mmol/L (3.5-5.1) Chloride Level 99 mmol/L (98-107) Carbon Dioxide Level 23 mmol/L (21-32) Anion Gap 14 (6-14) Blood Urea Nitrogen 8 mg/dL (7-20) Creatinine 0.6 mg/dL (0.6-1.0) Estimated GFR (Cockcroft-Gault) 102.0 BUN/Creatinine Ratio 13 (6-20) Glucose Level 110 mg/dL (70-99) H Calcium Level 10.1 mg/dL (8.5-10.1) Magnesium Level 1.7 mg/dL (1.8-2.4) L Total Bilirubin 0.6 mg/dL (0.2-1.0) Aspartate Amino Transferase (AST) 19 U/L (15-37) Alanine Aminotransferase (ALT) 20 U/L (14-59) Alkaline Phosphatase 88 U/L (46-116) Creatine Kinase 121 U/L (26-192) Creatine Kinase MB (Mass) 1.7 ng/mL (0.0-3.6) Creatine Kinase MB Relative Index 1.4 % (0-4) Troponin I Quantitative < 0.017 ng/mL (0.000-0.055) Total Protein 7.9 g/dL (6.4-8.2) Albumin 3.9 g/dL (3.4-5.0) Albumin/Globulin Ratio 1.0 (1.0-1.7) Laboratory Tests 09/03/18 10:14 Laboratory Tests 09/03/18 10:14 EKG EKG @1021: Normal sinus rhythm with rate of 67. Normal axis. T-wave inversion in V1. No ST segment depression or elevation.[] Radiology/Procedures Radiology/Procedures PROCEDURE: CHEST AP ONLY AP chest, 09/03/2018: HISTORY: Dizziness Comparison is made to a study from 08/02/2018. The heart size and pulmonary vascularity are normal. There is calcific plaquing of the aorta. Scattered calcified granulomata are present in the lungs. No acute infiltrate is seen. There is no evidence of pleural fluid. The bony structures are demineralized. There is a mild thoracolumbar scoliosis with scattered degenerative change. IMPRESSION: No acute cardiopulmonary abnormality is detected. Electronically signed by: Rachid Denney MD (09/03/2018 11:05 AM) [facility] PROCEDURE: CT HEAD WO CONTRAST EXAM: CT Head without IV contrast CLINICAL HISTORY: Dizziness COMPARISON: 08/02/2018 TECHNIQUE: Routine CT of the head without contrast. Soft tissues and bone windows were reviewed. PQRS compliance statement - One or more of the following individualized dose reduction techniques were utilized for this study: 1. Automated exposure control 2. Adjustment of the mA and/or kV according to patient size 3. Use of iterative reconstruction technique FINDINGS: There is no evidence of hemorrhage, mass or extra-axial fluid collection. There are non-specific foci of hypodensity in the periventricular, subcortical and deep white matter of the cerebral hemispheres. There is no mass effect or shift of the intracranial structures. The ventricles and cerebral sulci are prominent for the patients stated age consistent with generalized cerebral volume loss. The cerebellum and brainstem are unremarkable. The calvarium demonstrates no evidence of fracture or focal lesion. There is normal aeration of the visualized paranasal sinuses and mastoid air cells. The visualized portions of the orbits are normal. Atherosclerotic calcifications of the intracranial internal carotid arteries is seen. IMPRESSION: 1. No evidence for acute intracranial process. 2. Subcortical and periventricular as well as deep white matter hypoattenuation may be seen with chronic small vessel disease. 3. Findings of generalized cerebral volume loss/atrophy are again seen. Electronically signed by: Asa Maravilla MD (09/03/2018 11:21 AM) [facility] Course & Med Decision Making Course & Med Decision Making Pertinent Labs and Imaging studies reviewed. (See chart for details) Patient is a 58 year old female who presents to the ED with acute onset dizziness that she describes as vertigo which began around 0900 this morning. She has had this happen in the past but it has not been as severe. Physical exam did show nystagmus on horizontal gaze. She has chronic decreased sensation on her left side but her neuro exam was otherwise benign with no focal deficits noted. CT of head was negative for acute process but did show some generalized atrophy. Chest x-ray negative. CBC, CMP, Troponin and CK-MB negative. Patient given Antivert and Zofran without relief of her symptoms. She is agreeable to admission and further evaluation of her intractable dizziness as she does not feel well enough to go home. Patient requiring admission for further evaluation and treatment. Discussed with Dr. Gamez (hospitalist) who is in agreement with admission. Discussed findings and plan with patient and family, who acknowledge understanding and ag reement. [] Dragon Disclaimer Dragon Disclaimer This electronic medical record was generated, in whole or in part, using a voice recognition dictation system. Departure Departure Impression: Primary Impression: Dizziness Additional Impression: Nausea & vomiting Disposition: ADMITTED INPATIENT Admitting Physician: Valdez Angel Condition: STABLE Referrals: SONU CRAWFORD JR, MD (PCP) NIHSS Stroke Scale NIH Stroke Scale: NIH Stroke Scale Response (Comments) Value Level of Consciousness: 0 Alert/Responsive 0 LOC Questions: 0 Answers both correctly 0 LOC Commands: 0 Performs both tasks 0 Best Gaze: 0 Normal 0 Visual: 0 No visual loss 0 Facial Palsy: 0 Normal, symmetrical 0 Motor - Left Arm 0 No drift 0 Motor - Right Arm 0 No drift 0 Motor - Left Leg 0 No drift 0 Motor: Right Leg 0 No drift 0 Limb Ataxia: 0 Absent 0 Sensory: 1 Mid to moderate loss 1 Best Language: 0 Normal 0 Dysathria: 0 Normal 0 Extinction and Inattention: 0 Normal 0 Total 1 Problem Qualifiers Additional Impression: Nausea & vomiting Vomiting type: unspecified Vomiting Intractability: unspecified Qualified Codes: R11.2 - Nausea with vomiting, unspecified AMRITA LAMB DO September 03, 2018 11:11
[2018-09-03] MEDS ORDERED: ONDANSETRON PF 4 MG/2 ML VIAL. IV ONE ×2 (11:15→13:30)
[2018-09-03] MEDS ORDERED: MECLIZINE HCL 12.5 MG TABLET. PO ONE (11:15)
--- NOTE | 2018-09-03 11:24 | RAD ---
EXAM: CT Head without IV contrast CLINICAL HISTORY: Dizziness COMPARISON: 08/02/2018 TECHNIQUE: Routine CT of the head without contrast. Soft tissues and bone windows were reviewed. PQRS compliance statement - One or more of the following individualized dose reduction techniques were utilized for this study: 1. Automated exposure control 2. Adjustment of the mA and/or kV according to patient size 3. Use of iterative reconstruction technique FINDINGS: There is no evidence of hemorrhage, mass or extra-axial fluid collection. There are non-specific foci of hypodensity in the periventricular, subcortical and deep white matter of the cerebral hemispheres. There is no mass effect or shift of the intracranial structures. The ventricles and cerebral sulci are prominent for the patients stated age consistent with generalized cerebral volume loss. The cerebellum and brainstem are unremarkable. The calvarium demonstrates no evidence of fracture or focal lesion. There is normal aeration of the visualized paranasal sinuses and mastoid air cells. The visualized portions of the orbits are normal. Atherosclerotic calcifications of the intracranial internal carotid arteries is seen. IMPRESSION: 1. No evidence for acute intracranial process. 2. Subcortical and periventricular as well as deep white matter hypoattenuation may be seen with chronic small vessel disease. 3. Findings of generalized cerebral volume loss/atrophy are again seen. Electronically signed by: Asa Maravilla MD (09/03/2018 11:21 AM) [facility]
[2018-09-03 11:41] LABS: MAGNESIUM 1.7 mg/dL (1.8-2.4); TOTAL BILIRUBIN 0.6 mg/dL (0.2-1.0); TOTAL PROTEIN 7.9 g/dL (6.4-8.2)
[2018-09-03 11:53] LABS: ALBUMIN 3.9 g/dL (3.4-5.0)
--- NOTE | 2018-09-03 12:23 | EKG ---
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
--- NOTE | 2018-09-03 13:06 | PDOC1 ---
History and Physical Date of Admission Date of Admission DATE: 09/03/18 TIME: 13:05 Identification/Chief Complaint Chief Complaint SEEN IN ER , Patient is a 58 year old female who presents with dizziness that began at around 0900 this morning. She states that "it feels like an earthquake" and that "you're spinning, he's spinning, the whole room is spinning." She has chronic paresthesias of her left arm and bilateral lower extremities but states she has no new numbness, tingling or extremity weakness. She denies headache but does feel nauseous and almost vomited in route to the ED Past Medical History Past Medical History Past Medical History Past Medical History: Diabetes-Type II, Hypertension COPD Additional Past Medical Histor: hyponatremia,hypoglycemia,L ventricle "functions at 60%" Past Surgical History: Tonsillectomy Smoking: Cigarettes Alcohol Use: None Drug Use: None FAMILY HX COPD Cardiovascular: HTN Pulmonary: COPD CENTRAL NERVOUS SYSTEM: CVA GI: No pertinent hx Heme/Onc: No pertinent hx Hepatobiliary: No pertinent hx Psych: Anxiety Musculoskeletal: Other Rheumatologic: No pertinent hx Infectious disease: No pertinent hx Renal/: No pertinent hx Endocrine: No pertinent hx Past Surgical History Past Surgical History: Tonsillectomy Family History Family History: Adopted Social History Smoke: 1 pack per day ALCOHOL: occassional Drugs: None Current Problem List Problem List Problems Medical Problems: (1) Dizziness Status: Acute (2) Nausea & vomiting Status: Acute (3) Vertigo Status: Acute Current Medications Current Medications Current Medications Meclizine HCl (Antivert) 25 mg 1X ONCE PO Last administered on 09/03/18at 10:47; Start 09/03/18 at 11:15; Stop 09/03/18 at 11:16; Status DC Sodium Chloride 1,000 ml @ 1,000 mls/hr 1X ONCE IV Last administered on 09/03/18at 10:50; Start 09/03/18 at 10:45; Stop 09/03/18 at 11:44; Status DC Ondansetron HCl (Zofran) 4 mg 1X ONCE IV Last administered on 09/03/18at 10:47; Start 09/03/18 at 11:15; Stop 09/03/18 at 11:16; Status DC Active Scripts Active Ativan (Lorazepam) 0.5 Mg Tablet 0.5 Mg PO TID PRN Meclizine Hcl 25 Mg Tablet 1 Tab PO PRN TID PRN Amlodipine Besylate 10 Mg Tablet 10 Mg PO DAILY Losartan Potassium 50 Mg Tablet 50 Mg PO DAILY Clonidine Hcl 0.2 Mg Tablet 1 Tab PO BID Metoprolol Tartrate 50 Mg Tablet 1 Tab PO BID Reported Amlodipine Besylate 10 Mg Tablet 10 Mg PO DAILY Aspirin 81 Mg Tab.chew 81 Mg PO DAILY Losartan Potassium 50 Mg Tablet 50 Mg PO DAILY Clonidine Hcl 0.2 Mg Tablet 0.2 Mg PO BID Metoprolol Tartrate 50 Mg Tablet 50 Mg PO BID Allergies Allergies: Coded Allergies: No Known Drug Allergies (Unverified , 08/15/13) ROS Review of System Review of Systems Review of Systems Constitutional: Denies fever or chills Eyes: Denies redness or eye pain HENT: Denies nasal congestion or sore throat Respiratory: Denies cough or shortness of breath Cardiovascular: Denies chest pain or palpitations GI: Reports nausea. Denies abdominal pain or vomiting. Neurologic: Reports dizziness, vertigo. Denies headache, focal weakness or sensory changes from baseline 14 PT systems were reviewed and found to be within normal limits, except as documented . Hematological and Lymphatic: No: Bleeding Problems, Blood Clots, Blood Transfusions, Brusing, Night Sweats, Pallor, Swollen Lymph Nodes, Other ENDOCRINE: No: Breast Changes, Galactorrhea, Hair Pattern Changes, Hot Flashes, Malaise/lethargy, Mood Swings, Palpitations, Polydipsia/polyuria, Skin Changes, Temperature Intolerance, Unexpected Weight Changes, Other Breast: No New/Changing Breast Lumps, No Nipple changes, No Nipple discharge, No Other Gastrointestinal: Yes Nausea Musculoskeletal: Yes Joint Stiffness Neurological: Yes Dizziness, Yes Gait Disturbance Skin: No Dry Skin, No Eczema, No Hair Changes, No Lumps, No Mole Changes, No Mottling, No Nail Changes, No Pruritus, No Rash, No Skin Lesion Changes, No Other, No Acne Physical Exam Physical Exam Physical Exam Physical Exam Constitutional: Well developed, well nourished, no acute distress, non-toxic appearance HENT: Normocephalic, atraumatic, oropharynx moist Eyes: PERRL, EOMI, nystagmus noted on horizontal gaze Neck: Normal range of motion, no tenderness, supple Cardiovascular: Heart rate normal, regular rhythm Lungs & Thorax: Bilateral breath sounds clear to auscultation, no wheezing Abdomen: Soft, no tenderness Extremities: Radial pulses +2 bilaterally, cap refill less than 2 seconds. Neurologic: Alert and oriented, normal motor function, decreases sensation on left UE which patient states is preexisting, no focal deficits noted, finger to nose test normal Psychologic: Affect normal, judgement normal, mood normal General: Alert, Oriented X3, Cooperative, mild distress Heart: S1S2, RRR Breasts: Not examined Abdomen: Normal bowel sounds, Soft Rectal Exam: not examined Extremities: No cyanosis Skin: No rashes, No breakdown Neuro: Normal speech, Strength at 5/5 X4 ext, Cranial nerves 3-12 NL Psych/Mental Status: Mental status NL, Mood NL Vitals Vitals Vital Signs Date Time Temp Pulse Resp B/P (MAP) Pulse Ox O2 Delivery O2 Flow Rate FiO2 09/03/18 10:08 98.3 69 18 171/91 (117) 99 Room Air 98.3 Labs Labs Laboratory Tests Test 09/03/18 10:14 White Blood Count 7.3 x10^3/uL (4.0-11.0) Red Blood Count 4.57 x10^6/uL (3.50-5.40) Hemoglobin 14.9 g/dL (12.0-15.5) Hematocrit 43.1 % (36.0-47.0) Mean Corpuscular Volume 94 fL (79-100) Mean Corpuscular Hemoglobin 33 pg (25-35) Mean Corpuscular Hemoglobin Concent 35 g/dL (31-37) Red Cell Distribution Width 14.2 % (11.5-14.5) Platelet Count 385 x10^3/uL (140-400) Neutrophils (%) (Auto) 69 % (31-73) Lymphocytes (%) (Auto) 22 % (24-48) Monocytes (%) (Auto) 8 % (0-9) Eosinophils (%) (Auto) 0 % (0-3) Basophils (%) (Auto) 1 % (0-3) Neutrophils # (Auto) 5.0 x10^3uL (1.8-7.7) Lymphocytes # (Auto) 1.6 x10^3/uL (1.0-4.8) Monocytes # (Auto) 0.6 x10^3/uL (0.0-1.1) Eosinophils # (Auto) 0.0 x10^3/uL (0.0-0.7) Basophils # (Auto) 0.1 x10^3/uL (0.0-0.2) Sodium Level 136 mmol/L (136-145) Potassium Level 3.6 mmol/L (3.5-5.1) Chloride Level 99 mmol/L (98-107) Carbon Dioxide Level 23 mmol/L (21-32) Anion Gap 14 (6-14) Blood Urea Nitrogen 8 mg/dL (7-20) Creatinine 0.6 mg/dL (0.6-1.0) Estimated GFR (Cockcroft-Gault) 102.0 BUN/Creatinine Ratio 13 (6-20) Glucose Level 110 mg/dL (70-99) Calcium Level 10.1 mg/dL (8.5-10.1) Magnesium Level 1.7 mg/dL (1.8-2.4) Total Bilirubin 0.6 mg/dL (0.2-1.0) Aspartate Amino Transf (AST/SGOT) 19 U/L (15-37) Alanine Aminotransferase (ALT/SGPT) 20 U/L (14-59) Alkaline Phosphatase 88 U/L (46-116) Creatine Kinase 121 U/L (26-192) Creatine Kinase MB (Mass) 1.7 ng/mL (0.0-3.6) Creatine Kinase MB Relative Index 1.4 % (0-4) Troponin I Quantitative < 0.017 ng/mL (0.000-0.055) Total Protein 7.9 g/dL (6.4-8.2) Albumin 3.9 g/dL (3.4-5.0) Albumin/Globulin Ratio 1.0 (1.0-1.7) Laboratory Tests Test 09/03/18 10:14 White Blood Count 7.3 x10^3/uL (4.0-11.0) Red Blood Count 4.57 x10^6/uL (3.50-5.40) Hemoglobin 14.9 g/dL (12.0-15.5) Hematocrit 43.1 % (36.0-47.0) Mean Corpuscular Volume 94 fL (79-100) Mean Corpuscular Hemoglobin 33 pg (25-35) Mean Corpuscular Hemoglobin Concent 35 g/dL (31-37) Red Cell Distribution Width 14.2 % (11.5-14.5) Platelet Count 385 x10^3/uL (140-400) Neutrophils (%) (Auto) 69 % (31-73) Lymphocytes (%) (Auto) 22 % (24-48) Monocytes (%) (Auto) 8 % (0-9) Eosinophils (%) (Auto) 0 % (0-3) Basophils (%) (Auto) 1 % (0-3) Neutrophils # (Auto) 5.0 x10^3uL (1.8-7.7) Lymphocytes # (Auto) 1.6 x10^3/uL (1.0-4.8) Monocytes # (Auto) 0.6 x10^3/uL (0.0-1.1) Eosinophils # (Auto) 0.0 x10^3/uL (0.0-0.7) Basophils # (Auto) 0.1 x10^3/uL (0.0-0.2) Sodium Level 136 mmol/L (136-145) Potassium Level 3.6 mmol/L (3.5-5.1) Chloride Level 99 mmol/L (98-107) Carbon Dioxide Level 23 mmol/L (21-32) Anion Gap 14 (6-14) Blood Urea Nitrogen 8 mg/dL (7-20) Creatinine 0.6 mg/dL (0.6-1.0) Estimated GFR (Cockcroft-Gault) 102.0 BUN/Creatinine Ratio 13 (6-20) Glucose Level 110 mg/dL (70-99) Calcium Level 10.1 mg/dL (8.5-10.1) Magnesium Level 1.7 mg/dL (1.8-2.4) Total Bilirubin 0.6 mg/dL (0.2-1.0) Aspartate Amino Transf (AST/SGOT) 19 U/L (15-37) Alanine Aminotransferase (ALT/SGPT) 20 U/L (14-59) Alkaline Phosphatase 88 U/L (46-116) Creatine Kinase 121 U/L (26-192) Creatine Kinase MB (Mass) 1.7 ng/mL (0.0-3.6) Creatine Kinase MB Relative Index 1.4 % (0-4) Troponin I Quantitative < 0.017 ng/mL (0.000-0.055) Total Protein 7.9 g/dL (6.4-8.2) Albumin 3.9 g/dL (3.4-5.0) Albumin/Globulin Ratio 1.0 (1.0-1.7) Images Images MRI Brain without contrast History: Unsteady gait, dizziness Technique: Multiplanar, multisequential noncontrast MR imaging was performed of the brain. Comparison: None Findings: There is no evidence of recent infarct or cytotoxic edema. Ventricular size is proportionate to the sulcal spaces, moderate supratentorial atrophy greater than expected for the patient's age. There is multifocal moderate to severe T2 and FLAIR hyperintense signal abnormality of the supratentorial parenchyma bilaterally. There is small old lacunar infarct left basal ganglia. There is no significant midline shift, intraaxial mass effect, or focal abnormal extra-axial fluid collection. There is no significant hemosiderin deposition of the brain parenchyma. There is preservation of the major intracranial flow-voids at the skull base. The mastoid air cells are aerated. The cerebellar tonsils are normal in location. There is no significant abnormality of the pineal gland or pituitary gland. Paranasal sinuses are overall aerated. There is preserved marrow signal of the clivus. Impression: 1. There is no evidence of recent infarct or intracranial mass effect. There is generalized supratentorial atrophy greater than expected for the patient's age. There is multifocal moderate to severe T2 and FLAIR hyperintense abnormality of the supratentorial parenchyma bilaterally. Findings could be due to chronic microvascular ischemic disease if risk factors such as hypertension or diabetes. Sequela of an inflammatory demyelinating disease is not excluded given degree of changes in a patient this age and given atrophy. Electronically signed by: Kwame Dominguez MD (07/30/2018 4:58 PM) [facility] LEFT VENTRICLE The left ventricle is normal size. There is normal left ventricular wall thickness. Left ventricle systolic function is mildly to moderately impaired. The Ejection Fraction is 40%. There is mid and distal anterior and anteroseptal comer are severely hypokinetic. The left ventricular diastolic function and filling is normal for age. RIGHT VENTRICLE The right ventricle is mildly dilated. The right ventricular systolic function is normal. ATRIA The left atrium size is normal. The right atrium size is normal. Interatrial septum not well visualized. AORTIC VALVE The aortic valve is normal in structure and function. Doppler and Color Flow revealed no significant aortic regurgitation. There is no significant aortic valvular stenosis. MITRAL VALVE The mitral valve is normal in structure and function. Doppler and Color-flow revealed trace to mild mitral regurgitation. TRICUSPID VALVE The tricuspid valve is normal in structure. Doppler and Color Flow revealed moderate tricuspid regurgitation. The PA pressure was estimated at 40 mmHg. There is no tricuspid valve stenosis. PULMONIC VALVE The pulmonary valve is normal in structure. Doppler and Color Flow revealed trace pulmonic valvular regurgitation. GREAT VESSELS The aortic root is normal in size. Normal pulmonary venous flow (Doppler). The IVC is normal in size and collapses >50% with inspiration. PERICARDIAL EFFUSION There is no evidence of significant pericardial effusion. Critical Notification Critical Value: No <Conclusion> Left ventricle systolic function is mildly to moderately impaired. The Ejection Fraction is 40%. PE mid and distal anterior and anteroseptal comer are severely hypokinetic. Doppler and Color-flow revealed trace to mild mitral regurgitation. Doppler and Color Flow revealed moderate tricuspid regurgitation. The PA pressure was estimated at 40 mmHg. The IVC is normal in size and collapses >50% with inspiration. There is no evidence of significant pericardial effusion. EXAM: CT Head without IV contrast CLINICAL HISTORY: Dizziness COMPARISON: 08/02/2018 TECHNIQUE: Routine CT of the head without contrast. Soft tissues and bone windows were reviewed. PQRS compliance statement - One or more of the following individualized dose reduction techniques were utilized for this study: 1. Automated exposure control 2. Adjustment of the mA and/or kV according to patient size 3. Use of iterative reconstruction technique FINDINGS: There is no evidence of hemorrhage, mass or extra-axial fluid collection. There are non-specific foci of hypodensity in the periventricular, subcortical and deep white matter of the cerebral hemispheres. There is no mass effect or shift of the intracranial structures. The ventricles and cerebral sulci are prominent for the patients stated age consistent with generalized cerebral volume loss. The cerebellum and brainstem are unremarkable. The calvarium demonstrates no evidence of fracture or focal lesion. There is normal aeration of the visualized paranasal sinuses and mastoid air cells. The visualized portions of the orbits are normal. Atherosclerotic calcifications of the intracranial internal carotid arteries is seen. IMPRESSION: 1. No evidence for acute intracranial process. 2. Subcortical and periventricular as well as deep white matter hypoattenuation may be seen with chronic small vessel disease. 3. Findings of generalized cerebral volume loss/atrophy are again seen. Electronically signed by: Asa Maravilla MD (09/03/2018 11:21 AM) [facility] VTE Prophylaxis Ordered VTE Prophylaxis Devices: Yes VTE Pharmacological Prophylaxi: Yes Assessment/Plan Assessment/Plan IMPRESSION 1. Acute vertigo with concern for tia 2. COPD 3. tobacco abuse disorder 4. No evidence for acute intracranial process. 5. Subcortical and periventricular as well as deep white matter hypoattenuation may be seen with chronic small vessel disease. 6. generalized cerebral volume loss/atrophy are again seen. 7.Erythrocytosis hx 8.Thrombocytosis hx 9.Hypercalcemia hx 10. T2DM 11.HTN 12.HLD 13. peripheral neuropathy hx 14 remote echo Left ventricle systolic function is mildly to moderately impaired. The Ejection Fraction is 40% generalized supratentorial atrophy greater than expected for the patient's age. There is multifocal moderate to severe T2 and FLAIR hyperintense abnormality of the supratentorial parenchyma bilaterally. Findings could be due to chronic microvascular ischemic disease if risk factors such as hypertension or diabetes. Sequela of an inflammatory demyelinating disease is not excluded given degree of changes in a patient this age and given atrophy. Plan: Erythrocytosis and thrombocytosis resolved Discussed use of melatonin to help her sleep Discussed smoking cessation Neurology consult Continue home meds F/u labs PT/OT DVT prophylaxis CT HEAD NEUROCHECKS Q 4 HRS accuchecks echo cardiology consult 74 min pt exam, chart review, > 50% of time spent with exam, chart review, pt care coordination antivert po tele KYRA FELIZ MD September 03, 2018 13:05
[2018-09-03] MEDS ORDERED: DEXTROSE 50% 25 GM / 50ML DISP.SYRIN. IV PRN (13:30)
[2018-09-03] MEDS ORDERED: diazePAM 5 MG TABLET PO ONE (13:30)
[2018-09-03] MEDS ORDERED: ONDANSETRON PF 4 MG/2 ML VIAL. IV PRN (13:30)
[2018-09-03] MEDS ORDERED: MAGNESIUM SULFATE 2GM 50 ML IV ONE (13:30)
[2018-09-03 15:30] VITALS: BP 112/66
[2018-09-03] MEDS: INSULIN LISPRO 300 UNITS/3 ML INSULN.PEN. SQ SCH (17:00)
--- NOTE | 2018-09-03 21:43 | RAD ---
Carotid doppler ultrasound History: CVA Multiple grayscale, color, and duplex spectral analysis waveform sonographic images were acquired of the carotid, subclavian, and vertebral arteries. Comparison: None Findings: RIGHT: PSV cm/sec EDV cm/sec Common carotid artery 66 21 Maximal internal carotid artery 72 27 External carotid artery 64 Vertebral artery 36 ICA/CCA ratio 1.09 LEFT: PSV cm/sec EDV cm/sec Common carotid artery 58 20 Maximum internal carotid artery 58 18 External carotid artery 64 Vertebral artery 38 ICA/CCA ratio 1.0 Velocities used to determine stenosis are known to correlate with NASCET angiographic criteria. There is antegrade flow in the bilateral vertebral arteries. No significant stenosis is demonstrated on grayscale or color images. There is scattered [id number] plaque bilaterally including of the common carotid arteries extending to the carotid bifurcations and proximal internal and external carotid arteries. Impression: 1. There is no evidence of a hemodynamically significant stenosis. There is scattered plaque bilaterally. Electronically signed by: Kwame Dominguez MD (09/03/2018 9:41 PM) [facility]
[2018-09-03 23:57] VITALS: BP 106/61
[2018-09-03 23:59] VITALS: BP 140/49
[2018-09-04 03:36] VITALS: BP 125/62
[2018-09-04 07:20] VITALS: BP 178/81
[2018-09-04] MEDS: INSULIN LISPRO 300 UNITS/3 ML INSULN.PEN. SQ SCH ×3 (08:00→17:00)
[2018-09-04] MEDS ORDERED: MECLIZINE HCL 12.5 MG TABLET. PO PRN ×2 (08:30→16:00)
[2018-09-04] MEDS ORDERED: ONDANSETRON PF 4 MG/2 ML VIAL. IV PRN (08:30)
[2018-09-04] MEDS ORDERED: ACETAMINOPHEN/CODEINE 300/30MG TABLET. PO PRN (08:30)
[2018-09-04] MEDS ORDERED: LORazepam 0.5 MG TABLET PO PRN (08:30)
[2018-09-04] MEDS ORDERED: ACETAMINOPHEN 500 MG TABLET PO PRN (08:30)
[2018-09-04 09:32] LABS: BASO # 0.1 x10^3/uL (0.0-0.2); BASO % 1 % (0-3); EOS # 0.1 x10^3/uL (0.0-0.7); EOS % 1 % (0-3); HEMATOCRIT 43.5 % (36.0-47.0); HEMOGLOBIN 14.5 g/dL (12.0-15.5); LYMPH # 1.7 x10^3/uL (1.0-4.8); LYMPH % 28 % (24-48); MEAN CORPUSCULAR HEMOGLOBIN 32 pg (25-35); MEAN CORPUSCULAR HGB CONC 33 g/dL (31-37); MEAN CORPUSCULAR VOLUME 97 fL (79-100); MONO # 0.4 x10^3/uL (0.0-1.1); MONO % 7 % (0-9); NEUT # 3.8 x10^3uL (1.8-7.7); NEUT % 63 % (31-73); PLATELET COUNT 363 x10^3/uL (140-400); RED CELL DISTRIBUTION WIDTH 14.3 % (11.5-14.5); WHITE BLOOD COUNT 6.1 x10^3/uL (4.0-11.0)
[2018-09-04] MEDS: cloNIDine HCL 0.2 MG TABLET PO SCH ×2 (09:45→20:02)
[2018-09-04] MEDS: amLODIPine BESYLATE 10 MG TABLET PO SCH (09:45)
[2018-09-04] MEDS: ASPIRIN CHEWABLE 81 MG TABLET. PO SCH (09:45)
[2018-09-04] MEDS: METOPROLOL TART IMMED RELEASE 50 MG TABLET. PO SCH ×2 (09:45→20:03)
[2018-09-04] MEDS: LOSARTAN POTASSIUM 50 MG TABLET. PO SCH (09:46)
[2018-09-04 09:52] LABS: CALCIUM 9.9 mg/dL (8.5-10.1); CREATININE 0.6 mg/dL (0.6-1.0); POTASSIUM 4.4 mmol/L (3.5-5.1)
[2018-09-04] MEDS ORDERED: LOSA-73 PO (10:36)
[2018-09-04] MEDS ORDERED: AMLO10TA8 PO (10:36)
[2018-09-04] MEDS ORDERED: MECL25TA3 PO (10:36)
[2018-09-04] MEDS ORDERED: METO50TA6 PO (10:36)
[2018-09-04] MEDS ORDERED: CLON0.2T PO (10:36)
--- NOTE | 2018-09-04 10:40 | PDOC3 ---
Discharge Summary Visit Information Date of Admission: September 03, 2018 Date of Discharge: September 04, 2018 Admitting Diagnosis Comment: Accelerated hypertension POA Hypomagnesemia Dizziness, vertigo Final Diagnosis Problems Medical Problems: (1) Dizziness Status: Acute (2) Nausea & vomiting Status: Acute (3) Vertigo Status: Acute Brief Hospital Course Allergies Allergies Coded Allergies Type Severity Reaction Last Updated Verified No Known Drug Allergies 08/15/13 No Vital Signs Vital Signs Date Time Temp Pulse Resp B/P (MAP) Pulse Ox O2 Delivery O2 Flow Rate FiO2 09/04/18 09:46 113 178/81 09/04/18 08:00 Room Air 09/04/18 07:20 97.8 18 97 97.8 Lab Results Laboratory Tests Test 09/03/18 10:14 09/03/18 16:42 09/03/18 19:20 09/04/18 07:38 White Blood Count 7.3 x10^3/uL (4.0-11.0) Red Blood Count 4.57 x10^6/uL (3.50-5.40) Hemoglobin 14.9 g/dL (12.0-15.5) Hematocrit 43.1 % (36.0-47.0) Mean Corpuscular Volume 94 fL (79-100) Mean Corpuscular Hemoglobin 33 pg (25-35) Mean Corpuscular Hemoglobin Concent 35 g/dL (31-37) Red Cell Distribution Width 14.2 % (11.5-14.5) Platelet Count 385 x10^3/uL (140-400) Neutrophils (%) (Auto) 69 % (31-73) Lymphocytes (%) (Auto) 22 % (24-48) Monocytes (%) (Auto) 8 % (0-9) Eosinophils (%) (Auto) 0 % (0-3) Basophils (%) (Auto) 1 % (0-3) Neutrophils # (Auto) 5.0 x10^3uL (1.8-7.7) Lymphocytes # (Auto) 1.6 x10^3/uL (1.0-4.8) Monocytes # (Auto) 0.6 x10^3/uL (0.0-1.1) Eosinophils # (Auto) 0.0 x10^3/uL (0.0-0.7) Basophils # (Auto) 0.1 x10^3/uL (0.0-0.2) Sodium Level 136 mmol/L (136-145) Potassium Level 3.6 mmol/L (3.5-5.1) Chloride Level 99 mmol/L (98-107) Carbon Dioxide Level 23 mmol/L (21-32) Anion Gap 14 (6-14) Blood Urea Nitrogen 8 mg/dL (7-20) Creatinine 0.6 mg/dL (0.6-1.0) Estimated GFR (Cockcroft-Gault) 102.0 BUN/Creatinine Ratio 13 (6-20) Glucose Level 110 mg/dL (70-99) Calcium Level 10.1 mg/dL (8.5-10.1) Magnesium Level 1.7 mg/dL (1.8-2.4) Total Bilirubin 0.6 mg/dL (0.2-1.0) Aspartate Amino Transf (AST/SGOT) 19 U/L (15-37) Alanine Aminotransferase (ALT/SGPT) 20 U/L (14-59) Alkaline Phosphatase 88 U/L (46-116) Creatine Kinase 121 U/L (26-192) Creatine Kinase MB (Mass) 1.7 ng/mL (0.0-3.6) Creatine Kinase MB Relative Index 1.4 % (0-4) Troponin I Quantitative < 0.017 ng/mL (0.000-0.055) < 0.017 ng/mL (0.000-0.055) < 0.017 ng/mL (0.000-0.055) Total Protein 7.9 g/dL (6.4-8.2) Albumin 3.9 g/dL (3.4-5.0) Albumin/Globulin Ratio 1.0 (1.0-1.7) Glucose (Fingerstick) 105 mg/dL (70-99) Test 09/04/18 08:14 White Blood Count 6.1 x10^3/uL (4.0-11.0) Red Blood Count 4.50 x10^6/uL (3.50-5.40) Hemoglobin 14.5 g/dL (12.0-15.5) Hematocrit 43.5 % (36.0-47.0) Mean Corpuscular Volume 97 fL (79-100) Mean Corpuscular Hemoglobin 32 pg (25-35) Mean Corpuscular Hemoglobin Concent 33 g/dL (31-37) Red Cell Distribution Width 14.3 % (11.5-14.5) Platelet Count 363 x10^3/uL (140-400) Neutrophils (%) (Auto) 63 % (31-73) Lymphocytes (%) (Auto) 28 % (24-48) Monocytes (%) (Auto) 7 % (0-9) Eosinophils (%) (Auto) 1 % (0-3) Basophils (%) (Auto) 1 % (0-3) Neutrophils # (Auto) 3.8 x10^3uL (1.8-7.7) Lymphocytes # (Auto) 1.7 x10^3/uL (1.0-4.8) Monocytes # (Auto) 0.4 x10^3/uL (0.0-1.1) Eosinophils # (Auto) 0.1 x10^3/uL (0.0-0.7) Basophils # (Auto) 0.1 x10^3/uL (0.0-0.2) Sodium Level 132 mmol/L (136-145) Potassium Level 4.4 mmol/L (3.5-5.1) Chloride Level 95 mmol/L (98-107) Carbon Dioxide Level 30 mmol/L (21-32) Anion Gap 7 (6-14) Blood Urea Nitrogen 8 mg/dL (7-20) Creatinine 0.6 mg/dL (0.6-1.0) Estimated GFR (Cockcroft-Gault) 102.0 Glucose Level 131 mg/dL (70-99) Calcium Level 9.9 mg/dL (8.5-10.1) Magnesium Level 1.9 mg/dL (1.8-2.4) Laboratory Tests Test 09/03/18 16:42 09/03/18 19:20 09/04/18 07:38 09/04/18 08:14 Troponin I Quantitative < 0.017 ng/mL (0.000-0.055) < 0.017 ng/mL (0.000-0.055) Glucose (Fingerstick) 105 mg/dL (70-99) White Blood Count 6.1 x10^3/uL (4.0-11.0) Red Blood Count 4.50 x10^6/uL (3.50-5.40) Hemoglobin 14.5 g/dL (12.0-15.5) Hematocrit 43.5 % (36.0-47.0) Mean Corpuscular Volume 97 fL (79-100) Mean Corpuscular Hemoglobin 32 pg (25-35) Mean Corpuscular Hemoglobin Concent 33 g/dL (31-37) Red Cell Distribution Width 14.3 % (11.5-14.5) Platelet Count 363 x10^3/uL (140-400) Neutrophils (%) (Auto) 63 % (31-73) Lymphocytes (%) (Auto) 28 % (24-48) Monocytes (%) (Auto) 7 % (0-9) Eosinophils (%) (Auto) 1 % (0-3) Basophils (%) (Auto) 1 % (0-3) Neutrophils # (Auto) 3.8 x10^3uL (1.8-7.7) Lymphocytes # (Auto) 1.7 x10^3/uL (1.0-4.8) Monocytes # (Auto) 0.4 x10^3/uL (0.0-1.1) Eosinophils # (Auto) 0.1 x10^3/uL (0.0-0.7) Basophils # (Auto) 0.1 x10^3/uL (0.0-0.2) Sodium Level 132 mmol/L (136-145) Potassium Level 4.4 mmol/L (3.5-5.1) Chloride Level 95 mmol/L (98-107) Carbon Dioxide Level 30 mmol/L (21-32) Anion Gap 7 (6-14) Blood Urea Nitrogen 8 mg/dL (7-20) Creatinine 0.6 mg/dL (0.6-1.0) Estimated GFR (Cockcroft-Gault) 102.0 Glucose Level 131 mg/dL (70-99) Calcium Level 9.9 mg/dL (8.5-10.1) Magnesium Level 1.9 mg/dL (1.8-2.4) Brief Hospital Course Ms. Posada is a 58 old FEmale last saw Doc. 2 years ago, but based on file should be on 3 or 4 blood pressure regimen. Came in with a blood pressure that's high and dizzy. Better with control of blood pressure and resumption of home meds and some meclizine. Echo pending. Troponin 3 is negative. If echo is normal then she can go home later today. I have Rx'd all her blood pressure regimen and MEclizine COlleage H and p mentions EF 40%, cant find that report will wait for echo today before dcding pt Discharge Information Condition at Discharge: Improved, Stable Follow Up: Weeks (PCP re BP 4 weeks) Disposition/Orders: D/C to Home Scheduled Amlodipine Besylate (Amlodipine Besylate) 10 Mg Tablet, 10 MG PO DAILY, #14 Prescribed by: Matilde Wayne APRN on 07/29/181752 Last Action: HELD on 09/04/18820 by JOHN PABLO Amlodipine Besylate (Amlodipine Besylate) 10 Mg Tablet, 10 MG PO DAILY for htn MDD 1, #30 Prescribed by: JOHN PABLO on 09/04/18 1036 Aspirin (Aspirin) 81 Mg Tab.chew, 81 MG PO DAILY, (Reported) Entered as Reported by: HEMANTH STEELE on 10/17/17323 Last Action: Continued on 09/04/18820 by JOHN PABLO Clonidine Hcl (Clonidine Hcl) 0.2 Mg Tablet, 1 TAB PO BID, #28 Ref 0 Prescribed by: Matilde Wayne APRN on 07/29/181752 Last Action: HELD on 09/04/18820 by JOHN PABLO Clonidine Hcl (Clonidine Hcl) 0.2 Mg Tablet, 0.2 MG PO BID for htn MDD 1, #60 Prescribed by: JOHN PABLO on 09/04/18 1036 Losartan Potassium (Losartan Potassium) 50 Mg Tablet, 50 MG PO DAILY, #14 Prescribed by: Matilde Wayne APRN on 07/29/181752 Last Action: HELD on 09/04/18820 by JOHN PABLO Losartan Potassium (Losartan Potassium) 50 Mg Tablet, 50 MG PO DAILY for htn MDD 1, #30 Prescribed by: JOHN PABLO on 09/04/18 1036 Metoprolol Tartrate (Metoprolol Tartrate) 50 Mg Tablet, 50 MG PO BID for FOR HYPERTENSION, #60 Ref 0 (Reported) Entered as Reported by: HEMANTH STEELE on 10/17/17323 Last Action: HELD on 09/04/18820 by JOHN PABLO Metoprolol Tartrate (Metoprolol Tartrate) 50 Mg Tablet, 1 TAB PO BID for htn MDD 1, #60 Ref 0 Prescribed by: OJHN PABLO on 09/04/18 103 Scheduled PRN Lorazepam (Ativan) 0.5 Mg Tablet, 0.5 MG PO TID PRN for ANXIETY, #10 Prescribed by: AMRTIA LAMB D.O. on 08/28/1829 Last Action: Continued on 09/04/18820 by JOHN PABLO Meclizine Hcl (Meclizine Hcl) 25 Mg Tablet, 1 TAB PO PRN TID PRN for DIZZINESS MDD 1, #60 Prescribed by: JOHN PABLO on 09/04/18 103 JOHN PABLO MD September 04, 2018 10:40
[2018-09-04 11:14] VITALS: BP 186/92
--- NOTE | 2018-09-04 11:57 | PDOC ---
Provider Note Provider Note Echocardiogram 2014 shows EF 40% <Conclusion> Left ventricle systolic function is mildly to moderately impaired. The Ejection Fraction is 40%. PE mid and distal anterior and anteroseptal comer are severely hypokinetic. Doppler and Color-flow revealed trace to mild mitral regurgitation. Doppler and Color Flow revealed moderate tricuspid regurgitation. The PA pressure was estimated at 40 mmHg. The IVC is normal in size and collapses >50% with inspiration. There is no evidence of significant pericardial effusion. I'm being told cannot order echocardiogram on not unless comes from cardiology JOHN PABLO MD September 04, 2018 11:57
[2018-09-04 15:30] VITALS: BP 150/81
--- NOTE | 2018-09-04 15:53 | PDOC2 ---
CONSULT Date of Consult Date of Consult DATE: 09/04/18 TIME: 15:53 Reason for Consult Reason for Consult: dizziness History of Present Illness Reason for Visit: This patient is 58-year-old woman who had episode of dizziness. Patient reports she was feeling lightheaded. Patient had episode of dizziness which was mainly positional. Changing in head position were making her symptoms was getting out of the bed made symptoms worse. Patient denies any difficulty speaking tingling numbness on the face. Patient denies any focal extremity weakness. Past Medical History Cardiovascular: HTN Pulmonary: COPD CENTRAL NERVOUS SYSTEM: CVA GI: No pertinent hx Heme/Onc: No pertinent hx Hepatobiliary: No pertinent hx Psych: Anxiety Musculoskeletal: Other Rheumatologic: No pertinent hx Infectious disease: No pertinent hx Renal/: No pertinent hx Endocrine: No pertinent hx Past Surgical History Past Surgical History: Tonsillectomy Family History Family History: Adopted Social History 1 pack per day ALCOHOL: occassional Drugs: None Lives: with Family Domestic Violence: Neg Current Problem List Problem List Problems Medical Problems: (1) Dizziness Status: Acute (2) Nausea & vomiting Status: Acute (3) Vertigo Status: Acute Current Medications Current Medications Current Medications Meclizine HCl (Antivert) 25 mg 1X ONCE PO Last administered on 09/03/18at 10:47; Start 09/03/18 at 11:15; Stop 09/03/18 at 11:16; Status DC Sodium Chloride 1,000 ml @ 1,000 mls/hr 1X ONCE IV Last administered on 09/03/18at 10:50; Start 09/03/18 at 10:45; Stop 09/03/18 at 11:44; Status DC Ondansetron HCl (Zofran) 4 mg 1X ONCE IV Last administered on 09/03/18at 10:47; Start 09/03/18 at 11:15; Stop 09/03/18 at 11:16; Status DC Ondansetron HCl (Zofran) 4 mg 1X ONCE IV Last administered on 09/03/18at 14:32; Start 09/03/18 at 13:30; Stop 09/03/18 at 13:31; Status DC Diazepam (Valium) 5 mg 1X ONCE PO Last administered on 09/03/18at 14:31; Start 09/03/18 at 13:30; Stop 09/03/18 at 13:31; Status DC Magnesium Sulfate 50 ml @ 25 mls/hr 1X ONCE IV Last administered on 09/03/18at 14:33; Start 09/03/18 at 13:30; Stop 09/03/18 at 15:29; Status DC Ondansetron HCl (Zofran) 4 mg PRN Q8HRS PRN IV NAUSEA/VOMITING; Start 09/03/18 at 13:30; Stop 09/04/18 at 08:21; Status DC Insulin Human Lispro (HumaLOG) 0-5 UNITS TIDWMEALS SQ ; Start 09/03/18 at 17:00 Dextrose (Dextrose 50%-Water Syringe) 12.5 gm PRN Q15MIN PRN IV SEE COMMENTS; Start 09/03/18 at 13:30 Ondansetron HCl (Zofran) 4 mg PRN Q6HRS PRN IV NAUSEA/VOMITING; Start 09/04/18 at 08:30 Acetaminophen (Tylenol) 500 mg PRN Q6HRS PRN PO MILD PAIN / TEMP; Start 09/04/18 at 08:30 Acetaminophen/ Codeine Phosphate (Tylenol #3) 1 tab PRN Q6HRS PRN PO MODERATE PAIN; Start 09/04/18 at 08:30 Amlodipine Besylate (Norvasc) 10 mg DAILY PO Last administered on 09/04/18at 09:45; Start 09/04/18 at 09:00 Aspirin (Children'S Aspirin) 81 mg DAILY PO Last administered on 09/04/18at 09:45; Start 09/04/18 at 09:00 Clonidine HCl (Catapres) 0.2 mg BID PO Last administered on 09/04/18at 09:45; Start 09/04/18 at 09:00 Lorazepam (Ativan) 0.5 mg PRN TID PRN PO ANXIETY; Start 09/04/18 at 08:30 Losartan Potassium (Cozaar) 50 mg DAILY PO Last administered on 09/04/18at 09:46; Start 09/04/18 at 09:00 Metoprolol Tartrate (Lopressor) 50 mg BID PO Last administered on 09/04/18at 09:45; Start 09/04/18 at 09:00 Meclizine HCl (Antivert) 12.5 mg PRN Q6HRS PRN PO DIZZINESS; Start 09/04/18 at 08:30 Active Scripts Active Meclizine Hcl 25 Mg Tablet 1 Tab PO PRN TID PRN MDD 1 Metoprolol Tartrate 50 Mg Tablet 1 Tab PO BID MDD 1 Amlodipine Besylate 10 Mg Tablet 10 Mg PO DAILY MDD 1 Losartan Potassium 50 Mg Tablet 50 Mg PO DAILY MDD 1 Clonidine Hcl 0.2 Mg Tablet 0.2 Mg PO BID MDD 1 Ativan (Lorazepam) 0.5 Mg Tablet 0.5 Mg PO TID PRN Amlodipine Besylate 10 Mg Tablet 10 Mg PO DAILY Losartan Potassium 50 Mg Tablet 50 Mg PO DAILY Clonidine Hcl 0.2 Mg Tablet 1 Tab PO BID Reported Aspirin 81 Mg Tab.chew 81 Mg PO DAILY Metoprolol Tartrate 50 Mg Tablet 50 Mg PO BID Allergies Allergies: Coded Allergies: No Known Drug Allergies (Unverified , 08/15/13) Physical Exam Physical Exam Carotid doppler ultrasound History: CVA Multiple grayscale, color, and duplex spectral analysis waveform sonographic images were acquired of the carotid, subclavian, and vertebral arteries. Comparison: None Findings: RIGHT: PSV cm/sec EDV cm/sec Common carotid artery 66 21 Maximal internal carotid artery 72 27 External carotid artery 64 Vertebral artery 36 ICA/CCA ratio 1.09 LEFT: PSV cm/sec EDV cm/sec Common carotid artery 58 20 Maximum internal carotid artery 58 18 External carotid artery 64 Vertebral artery 38 ICA/CCA ratio 1.0 Velocities used to determine stenosis are known to correlate with NASCET angiographic criteria. There is antegrade flow in the bilateral vertebral arteries. No significant stenosis is demonstrated on grayscale or color images. There is scattered [id number] plaque bilaterally including of the common carotid arteries extending to the carotid bifurcations and proximal internal and external carotid arteries. Impression: 1. There is no evidence of a hemodynamically significant stenosis. There is scattered plaque bilaterally. Electronically signed by: Kwame Dominguez MD (09/03/2018 9:41 PM) [facility] A 10-point review of systems was obtained. Other than the history of present illness the remainder of the review of systems is negative. General no acute distress. HEENT: Normocephalic and atraumatic. NECK: Supple without bruit Respiratory: Clear to auscultation bilaterally Heart: Regular rate and rhythm, S1S2 normal NEUROLOGIC: Mental status Alert oriented. Cranial nerve equally reactive pupils, and intact extraocular movements. No facial asymmetry. Palate elevates and tongue protrudes in midline. Reflexes are 1-2 with flexor plantar responses. Coordination no dysmetria Strength able to move all exts equally. Sensory exam is intact for light touch and pinprick. Gait in bed. Vitals VITALS Vital Signs Date Time Temp Pulse Resp B/P (MAP) Pulse Ox O2 Delivery O2 Flow Rate FiO2 09/04/18 11:14 97.5 123 19 186/92 (123) 98 Room Air 97.5 Labs Labs Laboratory Tests Test 09/03/18 10:14 09/03/18 16:42 09/03/18 19:20 09/04/18 07:38 White Blood Count 7.3 x10^3/uL (4.0-11.0) Red Blood Count 4.57 x10^6/uL (3.50-5.40) Hemoglobin 14.9 g/dL (12.0-15.5) Hematocrit 43.1 % (36.0-47.0) Mean Corpuscular Volume 94 fL (79-100) Mean Corpuscular Hemoglobin 33 pg (25-35) Mean Corpuscular Hemoglobin Concent 35 g/dL (31-37) Red Cell Distribution Width 14.2 % (11.5-14.5) Platelet Count 385 x10^3/uL (140-400) Neutrophils (%) (Auto) 69 % (31-73) Lymphocytes (%) (Auto) 22 % (24-48) Monocytes (%) (Auto) 8 % (0-9) Eosinophils (%) (Auto) 0 % (0-3) Basophils (%) (Auto) 1 % (0-3) Neutrophils # (Auto) 5.0 x10^3uL (1.8-7.7) Lymphocytes # (Auto) 1.6 x10^3/uL (1.0-4.8) Monocytes # (Auto) 0.6 x10^3/uL (0.0-1.1) Eosinophils # (Auto) 0.0 x10^3/uL (0.0-0.7) Basophils # (Auto) 0.1 x10^3/uL (0.0-0.2) Sodium Level 136 mmol/L (136-145) Potassium Level 3.6 mmol/L (3.5-5.1) Chloride Level 99 mmol/L (98-107) Carbon Dioxide Level 23 mmol/L (21-32) Anion Gap 14 (6-14) Blood Urea Nitrogen 8 mg/dL (7-20) Creatinine 0.6 mg/dL (0.6-1.0) Estimated GFR (Cockcroft-Gault) 102.0 BUN/Creatinine Ratio 13 (6-20) Glucose Level 110 mg/dL (70-99) Calcium Level 10.1 mg/dL (8.5-10.1) Magnesium Level 1.7 mg/dL (1.8-2.4) Total Bilirubin 0.6 mg/dL (0.2-1.0) Aspartate Amino Transf (AST/SGOT) 19 U/L (15-37) Alanine Aminotransferase (ALT/SGPT) 20 U/L (14-59) Alkaline Phosphatase 88 U/L (46-116) Creatine Kinase 121 U/L (26-192) Creatine Kinase MB (Mass) 1.7 ng/mL (0.0-3.6) Creatine Kinase MB Relative Index 1.4 % (0-4) Troponin I Quantitative < 0.017 ng/mL (0.000-0.055) < 0.017 ng/mL (0.000-0.055) < 0.017 ng/mL (0.000-0.055) Total Protein 7.9 g/dL (6.4-8.2) Albumin 3.9 g/dL (3.4-5.0) Albumin/Globulin Ratio 1.0 (1.0-1.7) Glucose (Fingerstick) 105 mg/dL (70-99) Test 09/04/18 08:14 09/04/18 11:28 White Blood Count 6.1 x10^3/uL (4.0-11.0) Red Blood Count 4.50 x10^6/uL (3.50-5.40) Hemoglobin 14.5 g/dL (12.0-15.5) Hematocrit 43.5 % (36.0-47.0) Mean Corpuscular Volume 97 fL (79-100) Mean Corpuscular Hemoglobin 32 pg (25-35) Mean Corpuscular Hemoglobin Concent 33 g/dL (31-37) Red Cell Distribution Width 14.3 % (11.5-14.5) Platelet Count 363 x10^3/uL (140-400) Neutrophils (%) (Auto) 63 % (31-73) Lymphocytes (%) (Auto) 28 % (24-48) Monocytes (%) (Auto) 7 % (0-9) Eosinophils (%) (Auto) 1 % (0-3) Basophils (%) (Auto) 1 % (0-3) Neutrophils # (Auto) 3.8 x10^3uL (1.8-7.7) Lymphocytes # (Auto) 1.7 x10^3/uL (1.0-4.8) Monocytes # (Auto) 0.4 x10^3/uL (0.0-1.1) Eosinophils # (Auto) 0.1 x10^3/uL (0.0-0.7) Basophils # (Auto) 0.1 x10^3/uL (0.0-0.2) Sodium Level 132 mmol/L (136-145) Potassium Level 4.4 mmol/L (3.5-5.1) Chloride Level 95 mmol/L (98-107) Carbon Dioxide Level 30 mmol/L (21-32) Anion Gap 7 (6-14) Blood Urea Nitrogen 8 mg/dL (7-20) Creatinine 0.6 mg/dL (0.6-1.0) Estimated GFR (Cockcroft-Gault) 102.0 Glucose Level 131 mg/dL (70-99) Calcium Level 9.9 mg/dL (8.5-10.1) Magnesium Level 1.9 mg/dL (1.8-2.4) Glucose (Fingerstick) 110 mg/dL (70-99) Laboratory Tests Test 09/03/18 16:42 09/03/18 19:20 09/04/18 07:38 09/04/18 08:14 Troponin I Quantitative < 0.017 ng/mL (0.000-0.055) < 0.017 ng/mL (0.000-0.055) Glucose (Fingerstick) 105 mg/dL (70-99) White Blood Count 6.1 x10^3/uL (4.0-11.0) Red Blood Count 4.50 x10^6/uL (3.50-5.40) Hemoglobin 14.5 g/dL (12.0-15.5) Hematocrit 43.5 % (36.0-47.0) Mean Corpuscular Volume 97 fL (79-100) Mean Corpuscular Hemoglobin 32 pg (25-35) Mean Corpuscular Hemoglobin Concent 33 g/dL (31-37) Red Cell Distribution Width 14.3 % (11.5-14.5) Platelet Count 363 x10^3/uL (140-400) Neutrophils (%) (Auto) 63 % (31-73) Lymphocytes (%) (Auto) 28 % (24-48) Monocytes (%) (Auto) 7 % (0-9) Eosinophils (%) (Auto) 1 % (0-3) Basophils (%) (Auto) 1 % (0-3) Neutrophils # (Auto) 3.8 x10^3uL (1.8-7.7) Lymphocytes # (Auto) 1.7 x10^3/uL (1.0-4.8) Monocytes # (Auto) 0.4 x10^3/uL (0.0-1.1) Eosinophils # (Auto) 0.1 x10^3/uL (0.0-0.7) Basophils # (Auto) 0.1 x10^3/uL (0.0-0.2) Sodium Level 132 mmol/L (136-145) Potassium Level 4.4 mmol/L (3.5-5.1) Chloride Level 95 mmol/L (98-107) Carbon Dioxide Level 30 mmol/L (21-32) Anion Gap 7 (6-14) Blood Urea Nitrogen 8 mg/dL (7-20) Creatinine 0.6 mg/dL (0.6-1.0) Estimated GFR (Cockcroft-Gault) 102.0 Glucose Level 131 mg/dL (70-99) Calcium Level 9.9 mg/dL (8.5-10.1) Magnesium Level 1.9 mg/dL (1.8-2.4) Test 09/04/18 11:28 Glucose (Fingerstick) 110 mg/dL (70-99) Assessment/Plan Assessment/Plan This patient is 58-year-old woman who had episode of dizziness. Patient reports she was feeling lightheaded. Patient had episode of dizziness which was mainly positional. Changing in head position were making her symptoms was getting out of the bed made symptoms worse. Patient denies any difficulty speaking tingling numbness on the face. Patient denies any focal extremity weakness. 58-year-old woman with episode of positional dizziness. Patient previously had MRI of brain done which was negative for acute intracranial etiology. In symptoms. May benefit from vestibular rehab. Meclizine p.m. patient is not interested in repeating brain images for interval exam. Continue medical management. She will follow up in neurology clinic INA SANCHEZ MD September 04, 2018 15:53
[2018-09-04 19:46] VITALS: BP 143/79
--- NOTE | 2018-09-04 20:26 | PDOC2 ---
CARDIOLOGY CONSULT NOTE CHEIF COMPLAINT: Dizziness HPI: 58 y.o woman presenting with dizziness. Symptoms most consistent with vertigo. Chart review reveals prior hx of CMP in the setting of PNA almost 5 yrs ago. No clear f/u evident for this. No chest pain today, no dyspnea. No orthopnea or PND. No syncope. So far w/u was unremarkable. PMHX: Multiple prior evals for psychiatric issues HTN Alcohol abuse. COPD SOCHX: Lives alone. FAMHX: NC CURRENT MEDS: Current Medications Medications (Trade) Dose Ordered Sig/Jil Start Time Stop Time Status Last Admin Dose Admin Acetaminophen (Tylenol) 500 mg PRN Q6HRS PRN 09/04/18 08:30 Acetaminophen/ Codeine Phosphate (Tylenol #3) 1 tab PRN Q6HRS PRN 09/04/18 08:30 09/04/18 20:02 1 TAB Amlodipine Besylate (Norvasc) 10 mg DAILY 09/04/18 09:00 09/04/18 09:45 10 MG Aspirin (Children'S Aspirin) 81 mg DAILY 09/04/18 09:00 09/04/18 09:45 81 MG Clonidine HCl (Catapres) 0.2 mg BID 09/04/18 09:00 09/04/18 20:02 0.2 MG Dextrose (Dextrose 50%-Water Syringe) 12.5 gm PRN Q15MIN PRN 09/03/18 13:30 Diazepam (Valium) 5 mg 1X ONCE 09/03/18 13:30 09/03/18 13:31 DC 09/03/18 14:31 5 MG Insulin Human Lispro (HumaLOG) 0-5 UNITS TIDWMEALS 09/03/18 17:00 Lorazepam (Ativan) 0.5 mg PRN TID PRN 09/04/18 08:30 09/04/18 20:02 0.5 MG Losartan Potassium (Cozaar) 50 mg DAILY 09/04/18 09:00 09/04/18 09:46 50 MG Magnesium Sulfate 50 ml @ 25 mls/hr 1X ONCE 09/03/18 13:30 09/03/18 15:29 DC 09/03/18 14:33 25 MLS/HR Meclizine HCl (Antivert) 25 mg PRN Q8HRS PRN 09/04/18 16:00 Metoprolol Tartrate (Lopressor) 50 mg BID 09/04/18 09:00 09/04/18 09:45 50 MG Ondansetron HCl (Zofran) 4 mg PRN Q6HRS PRN 09/04/18 08:30 Sodium Chloride 1,000 ml @ 1,000 mls/hr 1X ONCE 09/03/18 10:45 09/03/18 11:44 DC 09/03/18 10:50 1,000 MLS/HR ALLERGIES: Allergies Coded Allergies Type Severity Reaction Last Updated Verified No Known Drug Allergies 08/15/13 No ROS: Negative for 01/24 systems reviewed unless otherwise noted above in HPI PHYSICAL EXAM: Vital Signs: Vital Signs Date Time Temp Pulse Resp B/P (MAP) Pulse Ox O2 Delivery O2 Flow Rate FiO2 09/04/18 20:02 56 143/79 09/04/18 20:02 Room Air 09/04/18 15:30 97.3 18 100 97.3 I & O Intake and Output 09/04/18 06:59 Intake Total 1580 ml Balance 1580 ml Intake Oral 580 ml IV Total 1000 ml # Voids 4 Physical Exam: GEN.: No apparent distress. Alert and oriented. HEENT: Head is normocephalic, atraumatic NECK: Supple. LUNGS: Clear to auscultation. HEART: RRR, S1, S2 present. Peripheral pulses intact ABDOMEN: Soft, nontender. Positive bowel sounds. EXTREMITIES: Without any cyanosis. NEUROLOGIC: Normal speech, normal tone PSYCHIATRIC: Normal affect, normal mood. SKIN: No ulcerations DIAGNOSTIC TESTING: EKG - Prior septal infarct. tele - no acute findings. Negative trop. ASSESSMENT: 1. Dizziness - No identifiable cardiac causes. 2. HTN 3. COPD PLAN: 1. No obvious cardiac source - DDx is pain syndrome, medication side effects, ne uropathy? 2. No further CV w/u needed on an inpt basis. Ok to DC. Will f/u and consider outpt cardiac w/u pending symptoms. SUZIE MACKEY MD September 04, 2018 20:26
[2018-09-04 23:36] VITALS: BP 161/79
[2018-09-05 03:13] VITALS: BP 175/73
[2018-09-05 03:17] VITALS: BP 187/82
[2018-09-05 07:40] VITALS: BP 152/88
[2018-09-05] MEDS: INSULIN LISPRO 300 UNITS/3 ML INSULN.PEN. SQ SCH (08:00)
[2018-09-05] MEDS: cloNIDine HCL 0.2 MG TABLET PO SCH (08:24)
[2018-09-05] MEDS: METOPROLOL TART IMMED RELEASE 50 MG TABLET. PO SCH (08:25)
[2018-09-05] MEDS: amLODIPine BESYLATE 10 MG TABLET PO SCH (08:25)
[2018-09-05] MEDS: LOSARTAN POTASSIUM 50 MG TABLET. PO SCH (08:25)
[2018-09-05] MEDS: ASPIRIN CHEWABLE 81 MG TABLET. PO SCH (08:25)
--- NOTE | 2018-09-05 11:11 | PDOC ---
PROGRESS NOTES Chief Complaint Chief Complaint Accelerated hypertension POA Hypomagnesemia Dizziness, vertigo Diminshed EF 40% -2013 History of Present Illness History of Present Illness SHe continues to be dizzy at times. Meclizine somewhat helped Neurology note reviewed appreciated, meclizine when necessary Echocardiogram 2013 shows diminished EF 40% Cardiology has ordered echo but finishing lab technician says they cannot do it today Thursday. Patient wants to go home, but patient also tells me she wont be able to do the echo when she gets home - will lose to ff up Plan I discussed with RN at bedside, recommend to do echo while here because I'm unsure about compliance Her EF is pretty significantly low in 2013 and she is having symptoms of dizziness I would rather have her stay here to have echo done tomorrow if that is unable to be done today Thursday Vitals Vitals Vital Signs Date Time Temp Pulse Resp B/P (MAP) Pulse Ox O2 Delivery O2 Flow Rate FiO2 09/05/18 08:25 109 152/88 09/05/18 08:00 Room Air 09/05/18 07:40 98.0 19 100 98.0 Physical Exam General: Alert, Oriented X3, Cooperative, mild distress Lungs: Clear Abdomen: Normal bowel sounds, Soft Extremities: No cyanosis Skin: No rashes, No breakdown Labs LABS Laboratory Tests Test 09/04/18 11:28 09/04/18 17:01 09/04/18 20:50 09/05/18 07:26 Glucose (Fingerstick) 110 mg/dL (70-99) 104 mg/dL (70-99) 99 mg/dL (70-99) 152 mg/dL (70-99) Review of Systems Review of Systems dizzy, the rest of ROS 14 point negative Assessment and Plan Assessmemt and Plan Problems Medical Problems: (1) Dizziness Status: Acute (2) Nausea & vomiting Status: Acute (3) Vertigo Status: Acute Comment Review of Relevant I have reviewed the following items sierra (where applicable) has been applied. Labs Laboratory Tests Test 09/03/18 16:42 09/03/18 19:20 09/04/18 07:38 09/04/18 08:14 Troponin I Quantitative < 0.017 ng/mL (0.000-0.055) < 0.017 ng/mL (0.000-0.055) Glucose (Fingerstick) 105 mg/dL (70-99) White Blood Count 6.1 x10^3/uL (4.0-11.0) Red Blood Count 4.50 x10^6/uL (3.50-5.40) Hemoglobin 14.5 g/dL (12.0-15.5) Hematocrit 43.5 % (36.0-47.0) Mean Corpuscular Volume 97 fL (79-100) Mean Corpuscular Hemoglobin 32 pg (25-35) Mean Corpuscular Hemoglobin Concent 33 g/dL (31-37) Red Cell Distribution Width 14.3 % (11.5-14.5) Platelet Count 363 x10^3/uL (140-400) Neutrophils (%) (Auto) 63 % (31-73) Lymphocytes (%) (Auto) 28 % (24-48) Monocytes (%) (Auto) 7 % (0-9) Eosinophils (%) (Auto) 1 % (0-3) Basophils (%) (Auto) 1 % (0-3) Neutrophils # (Auto) 3.8 x10^3uL (1.8-7.7) Lymphocytes # (Auto) 1.7 x10^3/uL (1.0-4.8) Monocytes # (Auto) 0.4 x10^3/uL (0.0-1.1) Eosinophils # (Auto) 0.1 x10^3/uL (0.0-0.7) Basophils # (Auto) 0.1 x10^3/uL (0.0-0.2) Sodium Level 132 mmol/L (136-145) Potassium Level 4.4 mmol/L (3.5-5.1) Chloride Level 95 mmol/L (98-107) Carbon Dioxide Level 30 mmol/L (21-32) Anion Gap 7 (6-14) Blood Urea Nitrogen 8 mg/dL (7-20) Creatinine 0.6 mg/dL (0.6-1.0) Estimated GFR (Cockcroft-Gault) 102.0 Glucose Level 131 mg/dL (70-99) Calcium Level 9.9 mg/dL (8.5-10.1) Magnesium Level 1.9 mg/dL (1.8-2.4) Test 09/04/18 11:28 09/04/18 17:01 09/04/18 20:50 09/05/18 07:26 Glucose (Fingerstick) 110 mg/dL (70-99) 104 mg/dL (70-99) 99 mg/dL (70-99) 152 mg/dL (70-99) Laboratory Tests Test 09/04/18 11:28 09/04/18 17:01 09/04/18 20:50 09/05/18 07:26 Glucose (Fingerstick) 110 mg/dL (70-99) 104 mg/dL (70-99) 99 mg/dL (70-99) 152 mg/dL (70-99) Medications Current Medications Meclizine HCl (Antivert) 25 mg 1X ONCE PO Last administered on 09/03/18at 10:47; Start 09/03/18 at 11:15; Stop 09/03/18 at 11:16; Status DC Sodium Chloride 1,000 ml @ 1,000 mls/hr 1X ONCE IV Last administered on 09/03/18at 10:50; Start 09/03/18 at 10:45; Stop 09/03/18 at 11:44; Status DC Ondansetron HCl (Zofran) 4 mg 1X ONCE IV Last administered on 09/03/18at 10:47; Start 09/03/18 at 11:15; Stop 09/03/18 at 11:16; Status DC Ondansetron HCl (Zofran) 4 mg 1X ONCE IV Last administered on 09/03/18at 14:32; Start 09/03/18 at 13:30; Stop 09/03/18 at 13:31; Status DC Diazepam (Valium) 5 mg 1X ONCE PO Last administered on 09/03/18at 14:31; Start 09/03/18 at 13:30; Stop 09/03/18 at 13:31; Status DC Magnesium Sulfate 50 ml @ 25 mls/hr 1X ONCE IV Last administered on 09/03/18at 14:33; Start 09/03/18 at 13:30; Stop 09/03/18 at 15:29; Status DC Ondansetron HCl (Zofran) 4 mg PRN Q8HRS PRN IV NAUSEA/VOMITING; Start 09/03/18 at 13:30; Stop 09/04/18 at 08:21; Status DC Insulin Human Lispro (HumaLOG) 0-5 UNITS TIDWMEALS SQ ; Start 09/03/18 at 17:00 Dextrose (Dextrose 50%-Water Syringe) 12.5 gm PRN Q15MIN PRN IV SEE COMMENTS; Start 09/03/18 at 13:30 Ondansetron HCl (Zofran) 4 mg PRN Q6HRS PRN IV NAUSEA/VOMITING; Start 09/04/18 at 08:30 Acetaminophen (Tylenol) 500 mg PRN Q6HRS PRN PO MILD PAIN / TEMP; Start 09/04/18 at 08:30 Acetaminophen/ Codeine Phosphate (Tylenol #3) 1 tab PRN Q6HRS PRN PO MODERATE PAIN Last administered on 09/04/18at 20:02; Start 09/04/18 at 08:30 Amlodipine Besylate (Norvasc) 10 mg DAILY PO Last administered on 09/05/18at 08 :25; Start 09/04/18 at 09:00 Aspirin (Children'S Aspirin) 81 mg DAILY PO Last administered on 09/05/18at 08:25; Start 09/04/18 at 09:00 Clonidine HCl (Catapres) 0.2 mg BID PO Last administered on 09/05/18at 08:24; Start 09/04/18 at 09:00 Lorazepam (Ativan) 0.5 mg PRN TID PRN PO ANXIETY Last administered on 09/04/18at 20:02; Start 09/04/18 at 08:30 Losartan Potassium (Cozaar) 50 mg DAILY PO Last administered on 09/05/18at 08:25; Start 09/04/18 at 09:00 Metoprolol Tartrate (Lopressor) 50 mg BID PO Last administered on 09/05/18at 08:25; Start 09/04/18 at 09:00 Meclizine HCl (Antivert) 12.5 mg PRN Q6HRS PRN PO DIZZINESS; Start 09/04/18 at 08:30 Meclizine HCl (Antivert) 25 mg PRN Q8HRS PRN PO DIZZINESS; Start 09/04/18 at 16:00 Active Scripts Active Meclizine Hcl 25 Mg Tablet 1 Tab PO PRN TID PRN MDD 1 Metoprolol Tartrate 50 Mg Tablet 1 Tab PO BID MDD 1 Amlodipine Besylate 10 Mg Tablet 10 Mg PO DAILY MDD 1 Losartan Potassium 50 Mg Tablet 50 Mg PO DAILY MDD 1 Clonidine Hcl 0.2 Mg Tablet 0.2 Mg PO BID MDD 1 Ativan (Lorazepam) 0.5 Mg Tablet 0.5 Mg PO TID PRN Amlodipine Besylate 10 Mg Tablet 10 Mg PO DAILY Losartan Potassium 50 Mg Tablet 50 Mg PO DAILY Clonidine Hcl 0.2 Mg Tablet 1 Tab PO BID Reported Aspirin 81 Mg Tab.chew 81 Mg PO DAILY Metoprolol Tartrate 50 Mg Tablet 50 Mg PO BID Vitals/I & O Vital Sign - Last 24 Hours 09/04/18 09/04/18 09/04/18 09/04/18 11:14 15:30 19:46 19:46 Temp 97.5 97.3 97.5 97.3 Pulse 123 99 56 Resp 19 18 18 B/P (MAP) 186/92 (123) 150/81 (104) 143/79 (100) Pulse Ox 98 100 99 O2 Delivery Room Air Room Air Room Air Room Air 09/04/18 09/04/18 09/04/18 09/04/18 20:02 20:02 21:10 23:36 Temp 98.1 98.1 Pulse 56 58 Resp 20 B/P (MAP) 143/79 161/79 (106) Pulse Ox 97 O2 Delivery Room Air Room Air Room Air 09/05/18 09/05/18 09/05/18 09/05/18 03:17 07:40 08:00 08:24 Temp 97.9 98.0 97.9 98.0 Pulse 72 109 109 Resp 19 B/P (MAP) 187/82 (117) 152/88 (109) 152/88 Pulse Ox 95 100 O2 Delivery Room Air Room Air Room Air 09/05/18 09/05/18 09/05/18 08:25 08:25 08:25 Pulse 109 109 109 B/P (MAP) 152/88 152/88 152/88 Intake and Output 09/04/18 09/04/18 09/05/18 15:00 23:00 07:00 Intake Total 1100 ml 400 ml 150 ml Balance 1100 ml 400 ml 150 ml JOHN PABLO MD September 05, 2018 11:10
[2018-09-05 11:30] VITALS: BP 124/78
--- NOTE | 2018-09-05 11:31 | PDOC3 ---
Discharge Summary Visit Information Date of Admission: September 03, 2018 Date of Discharge: September 05, 2018 Admitting Diagnosis Comment: dizziness-meclizine when necessary Accelerated hypertension-not on any meds or at least noncompliant-I have Rx'd all meds Final Diagnosis Problems Medical Problems: (1) Dizziness Status: Acute (2) Nausea & vomiting Status: Acute (3) Vertigo Status: Acute Brief Hospital Course Allergies Allergies Coded Allergies Type Severity Reaction Last Updated Verified No Known Drug Allergies 08/15/13 No Vital Signs Vital Signs Date Time Temp Pulse Resp B/P (MAP) Pulse Ox O2 Delivery O2 Flow Rate FiO2 09/05/18 08:25 109 152/88 09/05/18 08:00 Room Air 09/05/18 07:40 98.0 19 100 98.0 Lab Results Laboratory Tests Test 09/03/18 16:42 09/03/18 19:20 09/04/18 07:38 09/04/18 08:14 Troponin I Quantitative < 0.017 ng/mL (0.000-0.055) < 0.017 ng/mL (0.000-0.055) Glucose (Fingerstick) 105 mg/dL (70-99) White Blood Count 6.1 x10^3/uL (4.0-11.0) Red Blood Count 4.50 x10^6/uL (3.50-5.40) Hemoglobin 14.5 g/dL (12.0-15.5) Hematocrit 43.5 % (36.0-47.0) Mean Corpuscular Volume 97 fL (79-100) Mean Corpuscular Hemoglobin 32 pg (25-35) Mean Corpuscular Hemoglobin Concent 33 g/dL (31-37) Red Cell Distribution Width 14.3 % (11.5-14.5) Platelet Count 363 x10^3/uL (140-400) Neutrophils (%) (Auto) 63 % (31-73) Lymphocytes (%) (Auto) 28 % (24-48) Monocytes (%) (Auto) 7 % (0-9) Eosinophils (%) (Auto) 1 % (0-3) Basophils (%) (Auto) 1 % (0-3) Neutrophils # (Auto) 3.8 x10^3uL (1.8-7.7) Lymphocytes # (Auto) 1.7 x10^3/uL (1.0-4.8) Monocytes # (Auto) 0.4 x10^3/uL (0.0-1.1) Eosinophils # (Auto) 0.1 x10^3/uL (0.0-0.7) Basophils # (Auto) 0.1 x10^3/uL (0.0-0.2) Sodium Level 132 mmol/L (136-145) Potassium Level 4.4 mmol/L (3.5-5.1) Chloride Level 95 mmol/L (98-107) Carbon Dioxide Level 30 mmol/L (21-32) Anion Gap 7 (6-14) Blood Urea Nitrogen 8 mg/dL (7-20) Creatinine 0.6 mg/dL (0.6-1.0) Estimated GFR (Cockcroft-Gault) 102.0 Glucose Level 131 mg/dL (70-99) Calcium Level 9.9 mg/dL (8.5-10.1) Magnesium Level 1.9 mg/dL (1.8-2.4) Test 09/04/18 11:28 09/04/18 17:01 09/04/18 20:50 09/05/18 07:26 Glucose (Fingerstick) 110 mg/dL (70-99) 104 mg/dL (70-99) 99 mg/dL (70-99) 152 mg/dL (70-99) Laboratory Tests Test 09/04/18 11:28 09/04/18 17:01 09/04/18 20:50 09/05/18 07:26 Glucose (Fingerstick) 110 mg/dL (70-99) 104 mg/dL (70-99) 99 mg/dL (70-99) 152 mg/dL (70-99) Brief Hospital Course Ms. Posada is a 58 old [sex] who presented with [ ] Ms. Posada is a 58 old FEmale last saw Doc. 2 years ago, but based on file should be on 3 or 4 blood pressure regimen. Came in with a blood pressure that's high and dizzy. Better with control of blood pressure and resumption of home meds and some meclizine. Echo pending. Troponin 3 is negative. If echo is normal then she can go home later today. I have Rx'd all her blood pressure regimen and MEclizine Course Echocardiogram 2013 showed EF 40%. They are unable to do echo during the weekend. Okay by cardiology to echo as outpatient. I am unsure if she will actually do it-she tells me personally she might have troubles doing this - I left echo slip on chart Discharge Information Condition at Discharge: Improved, Stable Follow Up: Weeks (2 D echo next week) Disposition/Orders: D/C to Home Scheduled Amlodipine Besylate (Amlodipine Besylate) 10 Mg Tablet, 10 MG PO DAILY, #14 Prescribed by: Matilde Wayne APRN on 07/29/181752 Last Action: HELD on 09/04/18820 by JOHN PABLO Amlodipine Besylate (Amlodipine Besylate) 10 Mg Tablet, 10 MG PO DAILY for htn MDD 1, #30 Prescribed by: JOHN PABLO on 09/04/18 1036 Aspirin (Aspirin) 81 Mg Tab.chew, 81 MG PO DAILY, (Reported) Entered as Reported by: HEMANTH STEELE on 10/17/17323 Last Action: Continued on 09/04/18820 by JOHN PABLO Clonidine Hcl (Clonidine Hcl) 0.2 Mg Tablet, 1 TAB PO BID, #28 Ref 0 Prescribed by: Matilde Wayne APRN on 07/29/181752 Last Action: HELD on 09/04/18820 by JOHN PABLO Clonidine Hcl (Clonidine Hcl) 0.2 Mg Tablet, 0.2 MG PO BID for htn MDD 1, #60 Prescribed by: JOHN PABLO on 09/04/18 1036 Losartan Potassium (Losartan Potassium) 50 Mg Tablet, 50 MG PO DAILY, #14 Prescribed by: Matilde Wayne APRN on 07/29/181752 Last Action: HELD on 09/04/18820 by JOHN PABLO Losartan Potassium (Losartan Potassium) 50 Mg Tablet, 50 MG PO DAILY for htn MDD 1, #30 Prescribed by: JOHN PABLO on 09/04/18 1036 Metoprolol Tartrate (Metoprolol Tartrate) 50 Mg Tablet, 50 MG PO BID for FOR HYPERTENSION, #60 Ref 0 (Reported) Entered as Reported by: HEMANTH STEELE on 10/17/17323 Last Action: HELD on 09/04/18820 by JOHN PABLO Metoprolol Tartrate (Metoprolol Tartrate) 50 Mg Tablet, 1 TAB PO BID for htn MDD 1, #60 Ref 0 Prescribed by: JOHN PABLO on 09/04/18 103 Scheduled PRN Lorazepam (Ativan) 0.5 Mg Tablet, 0.5 MG PO TID PRN for ANXIETY, #10 Prescribed by: AMRITA LAMB D.O. on 08/28/18 0030 Last Action: Continued on 09/04/18820 by JOHN PABLO Meclizine Hcl (Meclizine Hcl) 25 Mg Tablet, 1 TAB PO PRN TID PRN for DIZZINESS MDD 1, #60 Prescribed by: JOHN PABLO on 09/04/18 103 JOHN PABLO MD September 05, 2018 11:31
== END 2018-09-05 14:00 | disposition home or self-care (01) | DRG 149 ==
LOC: ER 10:08 → 6 SOUTH 12:42
PROVIDERS: ADMIT Family Medicine; ATTEND Family Medicine
DX: R42 Dizziness and giddiness (principal); I10 Essential (primary) hypertension; J44.9 Chronic obstructive pulmonary disease, unspecified; F17.210 Nicotine dependence, cigarettes, uncomplicated; F41.9 Anxiety disorder, unspecified; E11.42 Type 2 diabetes mellitus with diabetic polyneuropathy; E83.42 Hypomagnesemia; E78.5 Hyperlipidemia, unspecified; Z86.73 Personal history of transient ischemic attack (TIA), and cerebral infarction without residual deficits
CPT/HCPCS: 36415; 70450; 71045; 80048; 80053; 82553; 82962; 83735; 84484; 85025; 93005; 93880; 96361; 96374; 96376; J1815; J2405; J3475; J7030; J8597; 99285-25